=== PATIENT | male | born 1985 | race Caucasian/White ===

== ENCOUNTER 2023-03-25 11:36 | Emergency (ER) | payer OTHER, SELFPAY ==
[2023-03-25] VITALS (13 sets, daily range): BP systolic 132–152; BP diastolic 78–107; PULSE 66–90; RESP 12–24; TEMP 36.8; O2SAT 96–99
--- NOTE | ~2023-03-25 | XR_ITS ---
XR chest 2V DATE: 03/25/2023 12:09 INDICATION: Chest pain and pressure, left side TECHNIQUE: PA and lateral views COMPARISON: None FINDINGS: Normal heart size. No hilar or mediastinal enlargement. No pulmonary infiltrate or consol idation, pulmonary vascular congestion or pleural effusion or pneumothorax. IMPRESSION: No active disease Reviewed, dictated and finalized at location L. IMPRESSION: No active disease
--- NOTE | 2023-03-25 11:38 | ECG_ITS ---
Measurements Intervals [place] Rate: 72 P: 41 HI: 175 QRS: -12 QRSD: 98 T: 4 QT: 361 QTc: 396 Interpretive Statements SINUS RHYTHM BORDERLINE ST-T WAVE ABNORMALITY- INFERIOR LEADS BASELINE ARTIFACT- I, II ,III, AVR, V5-V6 BORDERLINE ECG NO PREVIOUS ECG AVAILABLE FOR COMPARISON Electronically Signed On 03-25-2023 13:38:17 CDT by Rory Lassiter D.O.
[2023-03-25] MEDS: ASPIRIN 81 MG CHEWABLE TABLET 324 MG PO (11:59)
[2023-03-25 12:03] LABS: Basophils Percent Auto 0.4 % (0.2-1.2); Eosinophils Absolute Auto 0.1 K/mm3 (0-0.3); Eosinophils Percent Auto 2.2 % (0-4.4); Hematocrit 44.6 % (42.0-52.0); Hemoglobin 16.1 g/dL (14.0-18.0); Immature Granulocyte Absolute 0.02 K/mm3 (0.00-0.031); Immature Granulocyte Percent A 0.4 % (0-0.5); Lymphocytes Absolute Auto 1.92 K/mm3 (0.9-3.2); Lymphocytes Percent Auto 34.8 % (18.3-44.2); Mean Corpuscular HGB Conc 36.1 g/dl (32-36); Mean Corpuscular Hemoglobin 33.3 pg (26-34); Mean Corpuscular Volume 92.3 fl (80-100); Mean Platelet Volume 9.2 fl (7.4-10.4); Monocytes Absolute Auto 0.2 K/mm3 (0.1-0.6); Monocytes Percent Auto 4.2 % (2.6-8.5); Neutrophils Absolute Auto 3.2 K/mm3 (1.3-6.7); Platelet Count Result 171 k/mm3 (150-375); Red Blood Count 4.83 M/mm3 (4.6-6.20); Red Cell Distribution Width 11.9 % (11.5-14.5); White Blood Count 5.5 K/mm3 (4.5-10.0)
[2023-03-25 12:12] LABS: Alanine Aminotransferase 53 U/L (6-50); Albumin Level 4.9 g/dL (3.5-5.1); Alkaline Phosphatase 71 U/L (38-126); Anion Gap 12 mmol/L (8-16); Aspartate Amino Transferase 35 U/L (17-59); Bilirubin,Total 0.8 mg/dL (0.2-1.3); Blood Urea Nitrogen 17 mg/dL (9-20); Calcium 9.3 mg/dL (8.4-10.2); Carbon Dioxide 24 mmol/L (22-30); Chloride 102 mmol/L (98-107); Estimated CRCL calculation 104 ml/min; Estimated Glomerular Filt Rate > 60; Glucose 123 mg/dL (65-110); Lipase 103 U/L (23-300); Sodium 138 mmol/L (137-145)
[2023-03-25 12:13] LABS: INR 0.9; Prothrombin Time 12.4 Seconds (11.1-14.7)
[2023-03-25 12:24] LABS: Troponin I < 0.012 ng/mL (0.000-0.034)
--- NOTE | 2023-03-25 13:21 | ED.CHESTPAIN ---
HPI - Chest Pain General Chief Complaint: Chest Pain Stated Complaint: Chest discomfort Time Seen by Provider: 03/25/23 12:42 History of Present Illness HPI narrative: Patient is a 37-year-old male with a history of GERD presenting with palpitations. Patient states that approximately 2 days ago he noticed a fluttering in the left side of his chest as he was going to sleep. States that he tried to change his position but the sensation continued. States that he had some left chest discomfort. Denies shortness of breath, lightheadedness, numbness or weakness, back pain. He has had several more episodes of the palpitations with discomfort while at work today so he came in for evaluation. Currently he denies complaints. States that he feels like some of the pain goes into his left shoulder. Denies recent injuries. No fevers or chills, cough, abdominal pain, vomiting, diarrhea, leg swelling Related Data Allergies Allergy/AdvReac Type Severity Reaction Status Date / Time No Known Allergies Allergy Verified 03/25/23 11:52 Review of Systems Review of Systems: All systems reviewed & are unremarkable except as noted in HPI and below Exam Narrative: GENERAL: Well-appearing, well-nourished, and in no acute distress. Pleasant and cooperative HEAD: Normocephalic, atraumatic. EYES: PERRLA and EOMI. ENT: Nares clear, no rhinorrhea or epistaxis. Mucous membranes moist. NECK: Supple. CHEST: Clear to auscultation. No respiratory distress. No chest wall tenderness HEART: Regular rate and rhythm. No murmur heard. Normal peripheral pulses. ABDOMEN: Soft, nontender, nondistended EXTREMITIES: Normal range of motion. No edema. SKIN: Warm, dry, no rash. NEURO: No focal deficits. Alert and oriented x3. PSYCH: Normal mood and affect. Course Vital Signs Vital signs: Vital Signs Temperature 98.2 F 03/25/23 11:41 Pulse Rate 69 03/25/23 11:41 Respiratory Rate 16 03/25/23 11:41 Blood Pressure 152/107 H 03/25/23 11:41 Pulse Oximetry 99 03/25/23 11:41 Oxygen Delivery Room Air 03/25/23 11:41 Temperature 98.2 F 03/25/23 11:41 Pulse Rate 82 03/25/23 15:42 Respiratory Rate 15 03/25/23 15:42 Blood Pressure 137/87 03/25/23 15:42 Pulse Oximetry 98 03/25/23 15:42 Oxygen Delivery Room Air 03/25/23 11:41 MDM - Chest Pain MDM Narrative Medical decision making narrative: Patient is a 37-year-old male presenting with several episodes of palpitations with left-sided chest discomfort. Patient is a bit hypertensive, otherwise vitals are within normal limits. Exam remarkable for the above. EKG per my interpretation shows normal sinus rhythm, left axis deviation, nonspecific T wave flattening, no ST elevations or depressions. Blood work is unremarkable. Troponins are negative x2. Chest x-ray shows no acute abnormalities. On my reevaluation, the patient is resting comfortably. Denies complaints. Discussed the reassuring work-up. Advised that he follow-up closely with his PCP. Appropriate return precautions given. Patient voiced understanding and is agreeable to plan. Discharged in stable condition. Differential Diagnosis Differential diagnosis: Likely pneumothorax, stable angina, atypical chest pain, st elevation myocardial infarction, costochondritis, chest pain and other (GERD, musculoskeletal pain) Medical Records Data Attestation: I reviewed the patient's medical records. Lab Data Attestation: I reviewed the patient's lab results. 03/25/23 11:54 03/25/23 11:54 Labs: Lab Results 03/25/23 03/25/23 Range/Units 11:54 14:24 WBC 5.5 (4.5-10.0) K/mm3 RBC 4.83 (4.6-6.20) M/mm3 Hgb 16.1 (14.0-18.0) g/dL Hct 44.6 (42.0-52.0) % MCV 92.3 (80-100) fl MCH 33.3 (26-34) pg MCHC 36.1 H (32-36) g/dl RDW 11.9 (11.5-14.5) % Plt Count 171 (150-375) k/mm3 MPV 9.2 (7.4-10.4) fl Immature Gran % (Auto) 0.4 (0-0.5) % Neut % (Auto) 58.0
[2023-03-25 14:53] LABS: Troponin I < 0.012 ng/mL (0.000-0.034)
== END 2023-03-25 15:43 | disposition home or self-care (01) ==
PROVIDERS: Emergency Medicine; Emergency Provider Emergency Medicine
DX: R07.89 Other chest pain (principal); K21.9 Gastro-esophageal reflux disease without esophagitis; R94.31 Abnormal electrocardiogram [ECG] [EKG]
CPT/HCPCS: 36415; 71046; 80053; 83690; 84484; 85025; 85610; 85730; 93005; 99284; A9270

== ENCOUNTER 2025-01-03 15:19 | Emergency (ER) | payer OTHER, SELFPAY ==
--- NOTE | ~2025-01-03 | CT_ITS ---
CT abdomen pelvis w con Ordering provider: Olayinka Lock MD History: 39 years Male with . RLQ pain . Comparison: None. Technique: CT abdomen and pelvis with IV and without oral contrast. Automated exposure control and it erative reconstruction technique were employed. The dose-length product was 846.76 mGy-cm. 100 mL Omn ipaque 350 was given IV. Findings: VISUALIZED LOWER CHEST: Normal. UPPER ABDOMINAL ORGANS: Liver: Normal. Gallbladder: Normal. Spleen: Normal. Stomach/duodenum: Normal. Pancreas: Normal. Adrenals: Normal. Kidneys: Normal. PELVIC ORGANS: The bladder is normal. BOWEL AND MESENTERY: Colon: No evidence of diverticulitis. Fecal material is loaded in the colon. Normal appendix. Small Bowel: Normal. No obstruction. Peritoneum/mesentery: No free air or free fluid. No mesenteric lymphadenopathy. RETROPERITONEUM: Normal aorta. No retroperitoneal lymphadenopathy. MUSCULOSKELETAL: Superficial soft tissues: The superficial soft tissues are normal. Bones: Normal spine. IMPRESSION: 1. No evidence of appendicitis, diverticulitis or intestinal obstruction. 2. Constipation. Reviewed, dictated and finalized at location A.
--- OUTSIDE RECORDS SUMMARY | 2025-01-03 15:25 | XMS_ITS | Data Portability ---
Author Organization [place] - [facility] [place], Main Office Address [address] [place] [address] Assessment No assessment recorded. Plan of Treatment Reminders Order Date Submit Date Provider Last Modified By Organization Details Last Modified Time Details Appointments None record ed. Lab None record ed. Referral None record ed. Procedures None record ed. Surgeries None record ed. Imaging None record ed. Medication Orders None record ed. Patient TargetsNo targets recorded. Patient Instructions Encounter Date Encounter Id Patient Instructions Last Modified By Organization Details Last Modified Time 11/18/2022 [id number] he will undergo a ultrasound in April which will be annual and if there has been a significant change open biopsy will be recommended. [email or web address] Not available 11/18/2022 15:45:22 Reason for Referral None Reported. Results Created Date Observation Date Name Description Value Unit Range Abnormal Flag Note LastModifiedBy Organization Detail LastModifiedTime 05/13/20 22 05/08/2022 US, thyro id No observ ation record ed. [id number] Not Available 10/29/2022 01:26:19 07/14/20 23 05/28/2023 US, thyro id No observ ation record ed. [email or web address] Not Available 2022 16:18:57 07/19/20 23 05/28/2023 US, thyro id No observ ation record ed. [email or web address] Not Available 2022 08:16:23 Result Notes None recorded. 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 Procedures Surgical History Date Name Laterality Status Provider Name and Address Organization Details Recorded Time Hernia Repair completed Not Available [facility] 10/29/2022 01:23:35 Hand completed Not Available [facility] 09/2022 01:23:35 Imaging Results Imaging Date Name Status LastModified by Organiz ation Details LastModified Time 05/08/2022 US, thyroid completed [id number] Information not available 10/29/2022 01:26:19 05/28/2023 US, thyroid completed Information n ot available 07/14/2023 16:18:57 05/28/2023 US, thyroid completed Information n ot available 07/20/2023 08:16:23 Procedure Notes None recorded. Medical Equipment None Reported. Allergies No known drug allergies Medications Name Sig Start Date Stop Date Status Note LastModified by Organization Details LastModified Time acetaminoph en 325 mg tablet active Not Available Not Available Not Available omeprazole 40 mg capsule,del ayed release TAKE ONE CAPSULE BY MOUTH ONE TIME DAILY active Not Available Not Available No t Available meloxicam 7.5 mg tablet 11/12 completed Not Available Not Available Not Available clindamycin 1 % topical gel 11/12 completed Not Available Not Available Not Available mupirocin 2 % topical ointment APPLY TO THE AFFECTED AREA(S) TOPICALLY THREE TIMES DAILY 11/12 completed Not Available Not Available Not Available ibuprofen 600 mg tablet active Not Available Not Available Not Available amoxicillin 875 mg-potassiu m clavulanate 125 mg tablet TAKE ONE TABLET BY MOUTH TWICE A DAY FOR 10 DAYS 08/27 completed Not Available Not Available Not Available omeprazole 20 mg tablet,live yed release Take by oral route. 08/27 completed Not Available Not Available Not Available Vitals Date Recorded Body mass index (BMI) Body height Oxygen saturation Oxygen saturation in Arterial blood by Pulse oximetry Heart rate Body temperature Body weight Systolic blood pressure Diastolic blood pressure Provider Name and Address Organization Details Last Updated DateTime 2 34 kg/m2 175.26 cm 98 % 98 % 73 /min 97.2 [degF] 558094. 25 g 120 mm[Hg] 80 mm[Hg] Not Available [facility] 3 01:24:06 Date Recorded Body weight Provider Name an d Address Organization Details Last Updated DateTime 04/27/2022 785375.1 g Not Available [facility] 3 01:24:06 Date Recorded Body height Body mass index (BMI) Body weight Body temperature Provider Name and Address Organization Details Last Updated DateTime 11/18/2022 175.26 cm 33.7 kg/m2 750195.06 g 97.6 [degF] Misty Hastings CMA [place] [facility] [employer] 11/18/2022 15:16:46 Social History Question Answer Notes LastModified by nooked Details LastModified Time Tobacco Smoking Status Never Smoker Not Available [facility] 10/29/2022 01:22:56 What Is Your Level Of Alcohol Consumption? Occasional [id number] Information not available 10/29/2022 What Is Your Level Of Caffeine Consumption? Heavy [id number] Information not available 10/29/2022 What Type Of Diet Are You Following? REGULAR [id number] Information not available 10/29/2022 How Many Days Of Moderate To Strenuous Exercise, Like A Brisk Walk, Did You Do In The Last 7 Days? 5 [id number] Information not available 10/29/2022 On Those Days That You Engage In Moderate To Strenuous Exercise, How Many Minutes, On Average, Do You Exercise? 30 [id number] Information not available 10/29/2022 Do You Use Any Illicit Or Recreational Drugs? No [id number] Information not available 10/29/2022 Do You Have Any Dietary Restrictions? No [id number] Information not available 10/29/2022 Sex: Male Functional Status Question Answer Note LastModified by [employer] Details LastModified Time What is your exercise level? Moderate [id number] Information not available 10/29/2022 Mental Status None recorded. Family History Relationship Description Onset Age of this Age Resolved Age Notes LastModified by Organization Details LastModified Time Maternal Grandfather Family history of malignant neoplasm [id number] Not available 10/29/2022 01:23:37 Maternal Grandmother Family history of malignant neoplasm [id number] Not available 10/29/2022 01:23:37 Paternal Grandfather Family history of malignant neoplasm [id number] Not available 10/29/2022 01:23:37 Paternal Grandmother Family history of malignant neoplasm [id number] Not available 10/29/2022 01:23:37 Father Cerebrovascu lar accident [id number] Not available 10/29/2022 01:23:37 Medical History Condition Response THYROID DISEASE Y GERD/NAUSEA Y HYPOTHYROIDISM Y Past Encounters Encounter ID Performer Location Encounter Start Date Encounter Closed Date Diagnosis/Indication Diagnosis SNOMED-CT Code Diagnosis ICD10 Code Diagnosis Note [id number] [facility] [place] [address] [place] [address] 04/27/2022 00:00:00 04/27/2022 16:11:52 [id number] [facility] [place] [address] [place] [address] 08/27/2022 00:00:00 08/27/2022 16:26:40 [id number] Alex Cheema MD [facility] [place] [address] [place] [address] 11/18/2022 15:09:36 11/18/2022 16:24:51 Thyroid nodule 556818346 E04.1 Health Concerns Section Related Observation LastModified by Organization Detai ls LastModified Time None Recorded Concern Status LastModified by Organization Details LastModified Time None Recorded Advance Directives Directive None Recorded Payers Encounter Date Sequence Insurance Name Policy Number Policy Baxter Covered Member ID Baxter Member ID Guarantor Name 11/18/2022 1 [facility] () Holland Morrow [id number] Holland Morrow Notes Date Note Type Note Provider Name and Address Organization Details Recorded Time 11/18/2022 text/html this patient has a history of thyroid nodules and had a thyroid ultrasound in April of 2022. This demonstrated a 1.49 cm tie rads 4 nodule on the right and a 4 mm tie rads nodule on the left. He did have a previous biopsy which revealed atypia. There is no family history of thyroid cancer be has been exposed to radar. Alex Cheema MD [address] [place] [address], [place] [address], [place], [address], [facility] 11/18/2022 15:45:46
--- OUTSIDE RECORDS SUMMARY | 2025-01-03 15:25 | XMS_ITS | Encounter Summary ---
Author Organization [facility] [place] [address] [place] [address] Care Team Providers Care Fun House Attendant Name Role Phone Unavailable Primary Care Provider Unavailabl e Prior Encounters Date Type Department Care Team Description 09/18/2019 Converted CPS Chart Documents [facility] [address] [place] [address] <No scans attached> 09/18/2019 Converted 13x Documents [facility] [address] [place] [address] <No scans attached> Plan of Treatment Not on file Procedures Procedure Name Priority Date/Time Associated Diagnosis Comments PANORAMIC RADIOGRAPHIC IMAGE Routine 11/07/2020 3:00 AM EST 14 CEMENT CROWN Routine 08/21/2020 3:00 AM EST 14 TREATMENT OF ROOT CANAL OBSTRUCTION; NON-SURGICAL ACCESS Routine 08/14/2020 3:00 AM EST LIMITED ORAL EVALUATION - PROBLEM FOCUSED Routine 08/14/2020 3:00 AM EST 14 ENDODONTIC THERAPY, MOLAR TOOTH (EXCLUDING FINAL HINDU) Routine 08/14/2020 3:00 AM EST 14 PULP VITALITY TESTS Routine 0 3:00 AM EST 14 CORE BUILDUP, INCLUDING ANY PINS WHEN REQUIRED Routine 08/05/2020 3:00 AM EST 14 CEREC CROWN POST Routine 08/05/2020 3 :00 AM EST 14 LIMITED ORAL EVALUATION - PROBLEM FOCUSED Routine 08/02/2020 3:00 AM EST Visit Diagnoses Not on file
--- OUTSIDE RECORDS SUMMARY | 2025-01-03 15:25 | XMS_ITS | Clinical Summary ---
Author Organization [facility] Address [address] [place] [address] Care Team Providers Care Pharmacogeneticist Name Role Phone Amaris [facility] Primary Care Provider Allergies No known active allergies Medications No known medications Social History Tobacco Use Types Packs/Day Years Used Date Smoking Tobacco: Never Assessed Personal Safety Answer Date Recorded Getting School Help Needed Not on file 01/09 Sex and Gender Information Value Date Recorded Sex Assigned at Not on file Legal Sex Male 11:02 AM CDT Gender Identity Not on file Sexual Orientation Not on file Plan of Treatment Health Maintenance Due Date Last Done Comments Depression Screening 1983 Hepatitis C Screening 1985 DTaP/Tdap/Td Vaccine (1 - Tdap) 10/29/1994 Varicella Vaccines (1 of 2 - 13+ 2-dose series) 10/29/1996 Hepatitis B Screening 10/29/2001 Regular Well Visit/Exam 18-64 10/29/2001 Influenza Vaccine (#1) 2024 HPV Vaccines Aged Out No longer eligi ble based on patient's age to complete this topic Pneumococcal vaccine <65 Aged Out No longer eligible based on patient's age to complete this topic Insurance [facility] Care Teams Pharmacogeneticist Relationship Specialty Start Date End Date [facility] [address] [place] [address] PCP - General 01/18/24
--- OUTSIDE RECORDS SUMMARY | 2025-01-03 15:25 | XMS_ITS | Clinical Summary ---
Author Organization [facility] Address [address] [place] [address] Care Team Providers Care Plastic Process Technician Name Role Phone Unavailable Primary Care Provider Unavailabl e Social History Tobacco Use Types Packs/Day Years Used Date Smoking Tobacco: Never Assessed Sex and Gender Information Value Date Recorded Sex Assigned at Not on file Legal Sex Male 9:05 PM PST Gender Identity Not on file Sexual Orientation Not on file Plan of Treatment Not on file
--- OUTSIDE RECORDS SUMMARY | 2025-01-03 15:25 | XMS_ITS | Referral Summary ---
Author Organization [facility] Address [address] [place] [address] Care Team Providers Care Final Assembler Boat Name Role Phone Amaris [facility] Primary Care Provider [phone] Allergies No known active allergies Medications No [...] file Plan of Treatment Not on file Insurance [facility] Care Teams Final Assembler Boat Relationship Specialty Start Date End Date [facility] [address] [place], [place] [address] PCP - General 01/18/24
--- OUTSIDE RECORDS SUMMARY | 2025-01-03 15:25 | XMS_ITS | Clinical Summary ---
Author Organization [facility] Address [address] [place] [address] Care Team Providers Care Credit Adjuster Name Role Phone Non-Staff, Provider Primary Care Provider Latrell owen Allergies No known active allergies Medications methylPREDNISol one, MARISA, (MEDROL DOSEPAK) 4 MG tablet Take 1 tablet (4 mg total) by mouth 2 (two) times daily. Follow package directions 1 each 5 Active methocarbamol (ROBAXIN) 750 MG Tab Take 2 tablets (1,500 mg total) by mouth 3 (three) times daily as needed. 20 tablet Active Encounters Date Type Department Care Team Description 12/25/2024 7:37 AM CDT - 12/25/2024 8:54 AM CDT Emergency [facility] Emergency Room [address] [place] [address] Rebekah Watters MD Back Pain Discharge Disposition: Home or Self Care (Routine Discharge) 12/25/2024 Travel from Last 3 Months Social History Tobacco Use Types Packs/Day Years Used Date Smoking Tobacco: Never Passive Smoke Exposure: Never Smokeless Tobacco: Never Tobacco Cessation:Counseling Given: No Sex and Gender Information Value Date Recorded Sex Assigned at Not on file Legal Sex Male 7:30 AM CDT Gender Identity Not on file Sexual Orientation Not on file Last Filed Vital Signs Vital Sign Reading Time Taken Comments Blood Pressure 156/66 12/25/2024 8:49 AM CDT Pulse 80 12/25/2024 8:49 AM CDT Temperature 37.1 C (98.7 F) 12/25/2024 8:49 AM CDT Respiratory Rate 18 12/25/2024 8:49 AM CDT Oxygen Saturation 97% 12/25/2024 8:49 AM CDT Inhaled Oxygen Concentration - - Weight 102.1 kg (225 lb) 12/25/2024 7:38 AM CDT Height 175.3 cm (5' 9 ) 12/25/2024 7:38 AM CDT Body Mass Index 33.23 12/25/2024 7:38 AM CDT Plan of Treatment Health Maintenance Due Date Last Done Comments Annual Physical 10/29/1986 Hepatitis C 10/29/2001 COVID-19 Vaccine (3 - 2023-2 5 season) 2024 11/15/2020, 10/23/2020 DTaP, Tdap and Td Vaccines ( 2 - Td or Tdap) 12/13/2024 12/13/2014, 07/25/2004 Meningococcal Vaccine Aged Out 06/25/2004 No aristeo sanjiv eligible based on patient's age to complete this topic Hepatitis B Vaccines Completed 08/28/2006, 07/25/2004, 06/25/2004 HPV Vaccines Aged Out No longer eligi ble based on patient's age to complete this topic Meningococcal B Vaccine Aged Out No l onger eligible based on patient's age to complete this topic Pneumococcal Vaccine: Pediatrics (0 to 5 Years) and At-Risk Patients (6 to 49 Years) Aged Out No longer eligible b ased on patient's age to complete this topic RSV Immunizations Under 20 Months Aged Out No longer eligible b ased on patient's age to complete this topic Insurance Care Teams Credit Adjuster Relationship Specialty Start Date End Date Non-Staff, Provider PCP - General UNKNOWN PHYSICIAN SPECIALTY 12/25/24
--- OUTSIDE RECORDS SUMMARY | 2025-01-03 15:25 | XMS_ITS | Continuity of Care Document ---
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 It does not include entries that were removed or entered in error. Problem Status Onset Date Problem Type Date of Resolution Comments Source Low back pain Active 12/26/2024 Diagnosis [facility] Anxiety Active 12/19/2024 Diagnosis [facility] Low back pain, unspecified Active Condition DoD Nontoxic goiter, unspecified Active Condition DoD Abnormal hepatic function Active Condition 0421C[facility] [place] Anxiety Active Condition [facility] Degenerative disc disease Active Condition 0421C[facility] [place] Epididymal cyst Active Condition 0421C- [facility] [place] Essential hypertension Active Condition 6130C-[facility] GERD - Gastro-esophageal reflux disease Active Condition 0421C[facility] [place] Hydrocele of testis Active Condition 0421C[facility] [place] Joint pain Active Condition 00[facility] Low back pain Active Condition 0421C[facility] [place] Multiple thyroid nodules Active Condition 00[facility] Pain of bilateral knee joints Active Condition 0055C[facility] Thyroid nodule Active Condition 0421C-[facility] [place] Medications Combined list of outpatient medications from Department of Defense and Veterans Affairs facilities.Medications provided include 1) outpatient medications from the last 15 months, and 2) patient-reported medications. Medication Details Route Status Patient Instructions Prescription Expires Prescription Number Last Dispense Date Ordering Provider Order Date Order Qty Source CELECOXIB (U/D) 200 MG ORAL CAP Take with plenty of water.Ta ke with food/mil k.Obtain advice for OTCs.Do not take if . 10/05/2024 [id number] [address] [place] [address] Chang [facility] ([facility] Omeprazole (Prilosec Eq.) Capsule Conventiona l 40 mg Oral Take or use exactly as directed .Obtain advice for OTCs.Subha carey whole. 10/07/2024 [id number] [address] [place] [address] Chang [facility] ([facility] VOQUEZNA (vonoprazan fumarate), 10 MG, TABLET, ORAL, PHATHOM PHARMAC, 30 ea. BOTTLE Cancele d [id number] : 2023 0 Pharmac y Data Transac tion Service Facilit y VOQUEZNA (vonoprazan fumarate), 20 MG, TABLET, ORAL, PHATHOM PHARMAC, 30 ea. BOTTLE Cancele d [id number] : 2023 0 Pharmac y Data Transac tion Service Facilit y VOQUEZNA (vonoprazan fumarate), 20 MG, TABLET, ORAL, PHATHOM PHARMAC, 30 ea. BOTTLE Active [id number] 2023 60 Pharmac y Data Transac tion Service Facilit y Allergies, Adverse Reactions, Alerts Combined list of allergies from Department of Defense and Veterans Affairs facilities. It does not include entries that were removed or entered in error. Substance Category Reaction Severity Reaction type Status Date Reported Comments Source No Known Allergies Drug allergy (disorder) active 10/10/2023 DoD Immunizations Combined list of available immunizations from the Department of Defense and Veterans Affairs facilities. Immunization Series Date Given Administered By Site Reaction Lot Number CVX Code Drug Dry Boss Status Comments Source Influenza, injectable, quadrivalent, preservative free 0 2020 [id number] [employer] (SKB) complet ed Influenza , injectabl e, quadrival ent, preservat dax free DoD COVID Vaccine Pfizer 2020 [id number] PFIZER complet ed COVID Vaccine Pfizer 11/15/20 Given Ambulat ory Pharmac y SARS-COV-2 (COVID-19) vaccine, mRNA, spike protein, LNP, preservative free, 30 mcg/0.3mL dose 2 2020 [id number] 208 Na[employer] Inc (PFR) complet ed SARS-COV- 2 (COVID-19 ) vaccine, mRNA, spike protein, LNP, preservat dax free, 30 mcg/0.3mL dose DoD COVID Vaccine Pfizer 2020 [id number] PFIZER complet ed COVID Vaccine Pfizer 10/23/20 Given Ambulat ory Pharmac y SARS-COV-2 (COVID-19) vaccine, mRNA, spike protein, LNP, preservative free, 30 mcg/0.3mL dose 1 2020 [id number] Pfizer, Inc (PFR) complet ed SARS-COV- 2 (COVID-19 ) vaccine, mRNA, spike protein, LNP, preservat dax free, 30 mcg/0.3mL dose DoD influenza, injectable, quadrivalent- pf 2019 [id number] 150 Seqirus complet ed influenza , injectabl e, quadrival ent-pf 05/15/20 Given Ambulat ory Pharmac y Influenza, injectable, quadrivalent, preservative free 0 2019 [id number] 150 Seqirus (SEQ) complet ed Influenza , injectabl e, quadrival ent, preservat dax free DoD influenza, injectable, quadrivalent- pf 2018 [id number] 150 [employer] complet ed influenza , injectabl e, quadrival ent-pf 06/19/19 Given Ambulat ory Pharmac y Influenza, injectable, quadrivalent, preservative free 0 2018 [id number] 517 150 Se[employer] (SEQ) complet ed Influenza , injectabl e, quadrival ent, preservat dax free DoD measles/mumps /rubella virus vaccine 2018 [id number] Merck & Company Inc complet ed measles/m umps/rube lla virus vaccine 01/24/19 Given Ambulat ory Pharmac y measles, mumps and rubella virus vaccine 2 2018 [id number] 03 Merck (MSD) complet ed measles, mumps and rubella virus vaccine DoD influenza, injectable, quadrivalent- pf 2017 [id number] 150 Seqirus complet ed influenza , injectabl e, quadrival ent-pf 06/20/18 Given Ambulat ory Pharmac y Influenza, injectable, quadrivalent, preservative free 0 2017 [id number] 150 Se[employer]irus (SEQ) comple t ed Influenza , injectabl e, quadrival ent, preservat dax free DoD influenza, injectable, quadrivalent- pf 2016 [id number] 150 GlaxoSmithKli ne complet ed influenza , injectabl e, quadrival ent-pf 05/27/17 Given Ambulat ory Pharmac y Influenza, injectable, quadrivalent, preservative free 0 2016 [id number] 150 [facility] (SKB) complet ed Influenza , injectabl e, quadrival ent, preservat dax free DoD influenza, injectable, quadrivalent- pf 2015 [id number] 150 GlaxoSmithKli ne complet ed influenza , injectabl e, quadrival ent-pf 06/11/16 Given Ambulat ory Pharmac y Influenza, injectable, quadrivalent, preservative free 0 2015 [id number] 150 [facility] (SKB) complet ed Influenza , injectabl e, quadrival ent, preservat dax free DoD influenza, seasonal, injectable-pf 2014 [id number] 140 Unknown complet ed influenza , seasonal, injectabl e-pf 07/03/15 Given Ambulat ory Pharmac y Influenza, seasonal, injectable, preservative free 0 2014 UNK 140 Unknown (UNK) comple t ed Influenza , seasonal, injectabl e, preservat dax free DoD influenza, live, intranasal, quadrivalent 12 2014 149 () complet ed influenza , live, intranasa l, quadrival ent DoD tetanus, diphtheria, acellular pertu is 2014 [id number] 115 GlaxoSmithKli ne complet ed tetanus, diphtheri a, acellular pertussis 12/13/14 Given Ambulat ory Pharmac y tetanus toxoid, reduced diphtheria toxoid, and acellular pertu is vaccine, adsorbed 1 2014 [id number] 115 [facility] (SKB) complet ed tetanus toxoid, reduced diphtheri a toxoid, and acellular pertussis vaccine, adsorbed DoD influenza, live, intranasal, quadrivalent 0 2013 [id number] 149 [employer] (MED) complet ed influenza , live, intranasa l, quadrival ent DoD influenza, live, intranasal,qu adrivalent 2012 [id number] 149 [employer] comple t ed influenza , live, intranasa l,quadriv alent 04/24/13 Given Ambulat ory Pharmac y influenza, live, intranasal, quadrivalent 0 2012 [id number] 149 [employer] (MED) complet ed influenza , live, intranasa l, quadrival ent DoD influenza virus vaccine, live 2011 [id number] 111 [facility] t ed influenza virus vaccine, live 04/20/12 Given Ambulat ory Pharmac y influenza virus vaccine, live, attenuated, for intranasal use 0 2011 [id number] 111 [employer] (MED) complet ed influenza virus vaccine, live, attenuate d, for intranasa l use DoD influenza virus vaccine, live 2010 UNK 111 [facility] t ed influenza virus vaccine, live 04/14/11 Given Ambulat ory Pharmac y influenza virus vaccine, live, attenuated, for intranasal use 0 2010 UNK [facility] ed influenza virus vaccine, live, attenuate d, for intranasa l use DoD influenza virus vaccine, live 2009 UNK 111 complet ed influenza virus vaccine, live 06/05/10 Given Ambulat ory Pharmac y influenza virus vaccine, live, attenuated, for intranasal use 0 2009 UNK 111 (TRN) complet ed influenza virus vaccine, live, attenuate d, for intranasa l use DoD Novel influenza-H1N 1-09, injectable 2008 [id number] 1 127 complet ed Novel influenza -E1S2-29, injectabl e 08/02/09 Given Ambulat ory Pharmac y Novel influenza-H1N 1-09, injectable 1 2008 [id number] 1 127 (AG) complet ed Novel influenza -P3M9-12, injectabl e DoD influenza virus vaccine, live 2008 UNK 111 Unknown complet ed influenza virus vaccine, live 05/31/09 Given Ambulat ory Pharmac y influenza virus vaccine, live, attenuated, for intranasal use 0 2008 UNK 111 Unknown (UNK) comple t ed influenza virus vaccine, live, attenuate d, for intranasa l use DoD influenza virus vaccine, live 2007 [id number] 111 [facility] t ed influenza virus vaccine, live 05/31/08 Given Ambulat ory Pharmac y influenza virus vaccine, live, attenuated, for intranasal use 0 2007 [id number] 111 [employer] (MED) complet ed influenza virus vaccine, live, attenuate d, for intranasa l use DoD influenza virus vaccine, live 2006 [id number] 111 [employer] comple t ed influenza virus vaccine, live 06/14/07 Given Ambulat ory Pharmac y influenza virus vaccine, live, attenuated, for intranasal use 0 2006 [id number] 111 [employer] (MED) complet ed influenza virus vaccine, live, attenuate d, for intranasa l use DoD hepatitis A-hepatitis B vaccine 2005 [id number] 104 complet ed hepatitis A-hepatit is B vaccine 08/28/06 Given Ambulat ory Pharmac y hepatitis A and hepatitis B vaccine 3 2005 [id number] 104 ([facility]) complet ed hepatitis A and hepatitis B vaccine DoD influenza virus vaccine, whole virus 2005 [id number] 16 sanofi pasteur complet ed influenza virus vaccine, whole virus 07/08/06 Given Ambulat ory Pharmac y influenza virus vaccine, whole virus 0 2005 [id number] 16 Sanofi Pasteur ([facility]) complet ed influenza virus vaccine, whole virus DoD influenza virus vaccine, whole virus 2004 [id number] 16 sanofi pasteur complet ed influenza virus vaccine, whole virus 07/08/05 Given Ambulat ory Pharmac y influenza virus vaccine, whole virus 0 2004 [id number] 16 Sanofi Pasteur ([facility]) complet ed influenza virus vaccine, whole virus DoD yellow fever vaccine 2003 [id number] 37 sanofi pasteur complet ed yellow fever vaccine 07/25/04 Given Ambulat ory Pharmac y measles/mumps /rubella virus vaccine 2003 [id number] 03 Merck & Company Inc complet ed measles/m umps/rube lla virus vaccine 07/25/04 Given Ambulat ory Pharmac y hepatitis A-hepatitis B vaccine 2003 [id number] 104 complet ed hepatitis A-hepatit is B vaccine 07/25/04 Given Ambulat ory Pharmac y influenza virus vaccine, whole virus 2003 [id number] 16 sanofi pasteur complet ed influenza virus vaccine, whole virus 07/25/04 Given Ambulat ory Pharmac y influenza virus vaccine, whole virus 2003 [id number] 16 sanofi pasteur complet ed influenza virus vaccine, whole virus 07/25/04 Given Ambulat ory Pharmac y vaccinia (smallpox) vaccine 2003 [id number] [employer] [facility] complet ed vaccinia (smallpox ) vaccine 07/25/04 Given Ambulat ory Pharmac y tetanus-dipht h toxoids (Td) adult/adol 2003 [id number] 09 sanofi pasteur complet ed tetanus-d iphth toxoids (Td) adult/ado l 07/25/04 Given Ambulat ory Pharmac y measles, mumps and rubella virus vaccine 1 2003 [id number] 03 Merck (MSD) complet ed measles, mumps and rubella virus vaccine DoD tetanus and diphtheria toxoids, adsorbed, preservative free, for adult use (2 Lf of tetanus toxoid and 2 Lf of diphtheria toxoid) 1 2003 [id number] 09 Sanofi Pasteur ([facility]) complet ed tetanus and diphtheri a toxoids, adsorbed, preservat dax free, for adult use (2 Lf of tetanus toxoid and 2 Lf of diphtheri a toxoid) DoD influenza virus vaccine, whole virus 0 2003 [id number] 16 Sanofi Pasteur ([facility]) complet ed influenza virus vaccine, whole virus DoD yellow fever vaccine 1 2003 [id number] 37 Sanofi Pasteur ([facility]) complet ed yellow fever vaccine DoD vaccinia (smallpox) vaccine 1 2003 [id number] 75 VtshurthiNoah ([facility]) complet ed vaccinia (smallpox ) vaccine DoD hepatitis A and hepatitis B vaccine 2 2003 [id number] ([facility]) complet ed hepatitis A and hepatitis B vaccine DoD poliovirus vaccine, inactivated 2003 [id number] 10 sanofi pasteur complet ed polioviru s vaccine, inactivat ed 06/25/04 Given Ambulat ory Pharmac y hepatitis A-hepatitis B vaccine 2003 [id number] 104 complet ed hepatitis A-hepatit is B vaccine 06/25/04 Given Ambulat ory Pharmac y meningococcal polysaccharid e (MPSV4) 2003 [id number] 32 sanofi pasteur complet ed meningoco ccal polysacch aride (MPSV4) 06/25/04 Given Ambulat ory Pharmac y poliovirus vaccine, inactivated 2003 [id number] 10 sanofi pasteur complet ed polioviru s vaccine, inactivat ed 06/25/04 Given Ambulat ory Pharmac y poliovirus vaccine, inactivated 1 2003 [id number] 10 Sanofi Pasteur ([facility]) complet ed polioviru s vaccine, inactivat ed DoD meningococcal polysaccharid e vaccine (MPSV4) 1 2003 [id number] 32 Sanofi Pasteur ([facility]) complet ed meningoco ccal polysacch aride vaccine (MPSV4) DoD hepatitis A and hepatitis B vaccine 1 2003 [id number] 104 ([facility]K) complet ed hepatitis A and hepatitis B vaccine DoD Results Combined list of recent chemistry, hematology and other laboratory results from Department of Defense and Veterans Affairs, ranging from 15 months to all on record, depending upon the facility. Order Name Results Value Reference Range Date Interpretation Specimen Comments Source Chemistry Hemoglobin A1c 4.4 % 4.0 - 5.6 12/16 N Interpretiv e Data: Normal: 4.0 - 5.6% Increased Risk: 5.7 - 6.4% Diabetic Range: 6.5% For patients without diabetes, the normal range for the hemoglobin A1c test is between 4% and 5.6%. Hemoglobin A1c levels between 5.7% and 6.4% indicate increased risk of diabetes, and levels of 6.5% or higher indicate diabetes. Because studies have repeatedly shown that out-of-cont rol diabetes results in complicatio ns from the disease, the goal for people with diabetes is a hemoglobin A1c less than 7%. The higher the hemoglobin A1c, the higher the risks of developing complicatio ns related to diabetes. If confirmatio n is needed, consider recalling the patient and ordering Hemoglobin Electrophor esis. [facility]55A[facility] Chemistry eAvg Glucose 80 mg/dL 12/16 [facility] Chol/HDL 5 mg/dL 12/16 [facility] Chemistry LDL/HDL 3 12/16 [facility] Chemistry LDL 94 mg/dL 100 - 130 12/16 L Interpretiv e Data: AGES 0-19: Desirable: < 110 mg/dL Borderline High: 110-129 mg/dL High: >/= 130 mg/dL ADULTS: Desirable: <100 mg/dL Near/above optimal: 100-130 mg/dL Borderline High: 131-159 mg/dL High: 160-189 mg/dL Very High: 190 mg/dL [address] [place] [address] Chang Chemistry Triglycerid es 226 mg/dL 7 - 149 12/16 H Interpretiv e Data: AGES 0-9: Desirable: < 75 mg/dL Borderline High: 75-99 mg/dL High: >/= 100 mg/dL AGES 10-19: Desirable: < 90 mg/dL Borderline High: 90-129 mg/dL High: >/= 130 mg/dL ADULTS: Desirable: < 150 mg/dL Borderline High: 150-199 mg/dL High: >/= 240 mg/dL Very High: >/= 500 mg/dL [address] [place] [address] Chang Chemistry HDL Cholesterol 36 mg/dL 40 - 59 12/16 L Interpretiv e Data: HDL (HIGH DENSITY LIPOPROTEIN ): ADULTS: Low: < 40 mg/dL High: >/= 60 mg/dL AGES 0 -19: Low: < 40 mg/dL Borderline Low: 40 - 45 mg/dL Acceptable: > 45 mg/dL [address] [place] [address] Chemistry Cholesterol Total 180 mg/dL 12/16 N Interpretiv e Data: According to the [place] [employer] : AGES 0-19: Desirable: < 170 mg/dL Borderline High: 170-199 mg/dL High Blood Cholesterol : >/= 200 mg/dL ADULTS: Desirable < 200 mg/dL Borderline High: 200-239 mg/dL High Blood Cholesterol : >/= 240 mg/dL [address] [place] [address] Chang Chemistry TSH 1.390 mIU/L 0.270 - 4.200 12/16 N Interpretiv e Data: Recommend: TPO/Thyrope roxidase Antibody when TSH result is > 4.2 uIU/mL 5600A-U [facility] Infectiou s Disease HIV-1/O/2 Non-Reac tive 13 (12/17/23 9:46 AM) 12/16 N Interpretiv e Data: INTERPRETAT ION: This method is a screening procedure for the detection of HIV p24 Antigen and Antibodies to HIV-1, including Group O, and/or HIV-2. NON-REACTIV E: HIV-1 antigen and HIV-1 / HIV-2 antibodies were not detected. No laboratory evidence of HIV infection. A negative test result does not exclude the possibility of exposure to or infection with HIV. HIV antibodies and/or p24 antigen may be undetectabl e in some stages of the infection and in some clinical conditions. If acute HIV infection is suspected, consider submitting another specimen to a reference laboratory for HIV-1 RNA. SCREEN REACTIVE - CONFIRMATIO N TO FOLLOW: Possible presence of HIV-1antibo dies, HIV-2 antibodies and/or HIV-1 p24 antigen. Specimen will reflex to the confirmatio n testing that fulfills the Center for Disease Control and Prevention' s HIV diagnostic algorithm. Refer to [facility] Lab Guide for additional information : [email or web address] x Testing performed by [employer]. 5600A-U [facility] Chemistry AGAP 9.00 0.00 - 15.00 12/16 N 0055A-3 [facility] Chemistry Creatinine Level 0.90 mg/dL 0.72 - 1.25 12/16 N 0055A-[address] [place] [address]- Chang Chemistry Glucose Lvl 93 mg/dL 74 - 99 12/16 N 0055A-[address] [place] [address]- Chang Chemistry Potassium Lvl 4.5 mmol/L 3.5 - 5.1 12/16 N 0055A-[address] [place] [address] Chemistry Sodium 141 mmol/L 136 - 145 12/16 N 0055A-[address] [place] [address]- Chang Chemistry Chloride 109 mmol/L 98 - 107 12/16 H 0055A-3 [facility]- [facility] Chemistry BUN 13 mg/dL 8 - 26 12/16 N 0055A-[address] [place] [address]- Chang Chemistry BUN/Creat Ratio 14 mg/dL 12 - 20 12/16 N 0055A-[address] [place] [address]- Chang Chemistry Calcium 9.5 mg/dL 8.4 - 10.2 12/16 N 0055A-[address] [place] [address]- Chang Chemistry CO2 23 mmol/L 22 - 29 12/16 N 0055A-[address] [place] [address] Chemistry Ur Microalbumi n 8 mg/L 12/16 N Interpretiv e Data: To minimize intra-indiv idual variation, analysis of three random urine samples collected over the course of a week has also been recommended . 0055A-[address] [place] [address]- Chang Hematolog y Hematocrit 44 % 40 - 49 12/16 N 0055A-[address] [place] [address]- [facility] Hematolog y Hemoglobin 16.4 g/dL 13.0 - 16.3 12/16 H 0055A-[address] [place] [address]- Chang Hematolog y MCH 34 pg 28 - 33 12/16 H 0055A-3 [facility] Hematolog y MCHC 37.4 g/dL 33.0 - 36.5 12/16 H 0055A-[address] [place] [address]- Chang Hematolog y MCV 90 fL 80 - 97 12/16 N 0055A-[address] [place] [address]- Chang Hematolog y Platelets 170.0 x10^3/mc L 150.0 - 450.0103 12/16 N 0055A-[address] [place] [address] Chang Hematolog y MPV 9.4 fL 7.4 - 10.4 12/16 N 0055A-3 [facility] Hematolog y RDW 12.0 % 11.0 - 14.9 12/16 N 0055A-[address] [place] [address] Chang Hematolog y RBC 4.9 x10^6/mc L 4.0 - 5.6106 12/16 N 0055A-[address] [place] [address] Chang Hematolog y WBC 4.8 x10^3/mc L 4.0 - 11.0103 12/16 N 0055A-[address] [place] [address] Chemistry eGFR CKD EPI 111 mL/min/1 .73_m2 12/16 Interpretiv e Data: Estimated Glomerular Filtration Rate (eGFR) calculated using the 2020 Chronic Kidney Disease-Epi demiology (CKD-EPI) Collaborati on creatinine equation; units of measure are mL/min/1.73 m2. Results are only valid for adults (>=18 years) whose serum creatinine is in steady state. eGFR calculation s are not valid for patients with acute kidney injury and for patients on dialysis. Creatinine- based estimates of kidney function may also be inaccurate in patients with reduced creatinine generation due to decreased muscle mass (e.g., malnutritio n, severe hypoalbumin emia, sarcopenia, chronic neuromuscul ar disease, amputations , severe heart failure or liver disease) and in patients with increased creatinine generation due to increased muscle mass (e.g., muscle builders, anabolic steroids) or increased dietary intake. CKD is diagnosed based on abnormaliti es of kidney structure or function, present for >3 months, with implication s for health and disease. CKD is classified and staged based on cause, eGFR and albuminuria (quantified as urine albumin to creatinine ratio). An eGFR >60 mL/min/1.73 m2 in the absence of increased urine albumin excretion or structural abnormaliti es does not CKD. eGFR provides only an estimate of measured GFR within +/- 30% for most patients. As mentioned, nutritional status and muscle mass, among many factors, may lead to inaccuracy in the estimate. Consider ordering the creatinine- cystatin C panel if better accuracy is needed for clinical decision-heidi gonzales. eGFR (mL/min/1.7 3 m2) CKD stage Interpretat ion Normal 60-89 Mild decrease 45-59 Mild to moderate decrease 30-44 Moderate to severe decrease 15-29 Severe decrease <15 Kidney failure 0055A-3 [facility] Hematolog y Baso Absolute 0.0 x10^3/mc L 0.0 - 0.1103 12/16 N 0055A-3 [facility] Lymph Absolute 1.8 x10^3/mc L 1.2 - 4.0103 12/16 N 0055A-[address] [place], [place] [address]osin[facility] % Auto 3 % 0 - 5 12/16 N 0055A-[address] [place] [address] Hematolog y Lymphocyte % Auto 38.1 % 20.0 - 40.0 12/16 N 0055A-3 [facility] Hematolog y Basophil % Auto 0.4 % 0.0 - 2.5 12/16 N 0055A-3 [facility] Eos Absolute 0.1 x10^3/mc L 0.0 - 0.7103 12/16 N 0055A-3 [facility] Neutrophil % Auto 52.5 % 46.0 - 77.0 12/16 N 0055A-[address] [place] [address] Hematolog y Monocyte % Auto 6 % 1 - 12 12/16 N 0055A-[address] [place] [address] Hematolog y Neutro Absolute 2.5 x10^3/mc L 2.0 - 7.0103 12/16 N 0055A-[address] [place] [address] Hematolog y Mayes Absolute 0.3 x10^3/mc L 0.2 - 0.8103 12/16 N 0055A-[address] [place] [address] Molecular Infectiou s Disease Bordetella pertussis Not Detected (11/16/23 8:26 AM) 11/15 N - [address] [place] [address] Molecular Infectiou s Disease Bordetella parapertuss is Not Detected (11/16/23 8:26 AM) 11/15 N 5A- [address] [place] [address] Molecular Infectiou s Disease SARS-CoV-2 PCR Not Detected 15 (11/16/23 8:26 AM) 11/15 N Interpretiv e Data: The [employer] COVID-19 Test contains three different assays (SARS-CoV-2 a, SARS-CoV-2d , SARS-CoV-2e ) for the detection of SARS-CoV-2. The [employer] interprets each of these assays independent ly and the results are combined as a final test result for the virus. SARS-CoV-2- Detected If two or more assays are 'Detected' the result on the test report will be 'Detected'. SARS-CoV-2- Not Detected-al l assays are 'Not Detected', the result on the test report will be 'Not Detected' SARS-CoV-2 Equivocal- Only one of three assays was D etected for the virus. The combination of D etected and N ot Detected assay results were inconclusiv e 63 [place] [address] Molecular Infectiou s Disease Reason for Test? Diagnosi s (11/16/23 8:26 AM) 11/15 N 5A-[address] [place] [address] Molecular Infectiou s Disease Adenovirus Not Detected (11/16/23 8:26 AM) 11/15 N 0055A-[address] [place] [address]- [facility] Molecular Infectiou s Disease Chlamydia pneumoniae Not Detected (11/16/23 8:26 AM) 11/15 N 0055A-[address] [place] [address] Molecular Infectiou s Disease Coronavirus 229E Not Detected (11/16/23 8:26 AM) 11/15 N 0055A-[address] [place] [address] Molecular Infectiou s Disease Coronavirus HKU1 Not Detected (11/16/23 8:26 AM) 11/15 N 0055A-[address] [place] [address] Molecular Infectiou s Disease Coronavirus NL63 Not Detected (11/16/23 8:26 AM) 11/15 N 0055A-[address] [place] [address] Molecular Infectiou s Disease Coronavirus OC43 Not Detected (11/16/23 8:26 AM) 11/15 N 0055A-[address] [place] [address] Molecular Infectiou s Disease Human Metapneumov irus Detected *ABN* (11/16/23 8:26 AM) 11/15 A 0055A-[address] [place] [address] Molecular Infectiou s Disease Influenza A Not Detected (11/16/23 8:26 AM) 11/15 N 0055A-3 [facility] Molecular Infectiou s Disease Influenza B Not Detected (11/16/23 8:26 AM) 11/15 N 0055A-[address] [place] [address] Molecular Infectiou s Disease Mycoplasma pneumoniae Not Detected (11/16/23 8:26 AM) 11/15 N 0055A-[address] [place] [address]- [facility] Molecular Infectiou s Disease Parainfluen za 1 Not Detected (11/16/23 8:26 AM) 11/15 N 0055A-3 [facility] Molecular Infectiou s Disease Parainfluen za 2 Not Detected (11/16/23 8:26 AM) 11/15 N 0055A-[address] [place] [address]- [facility] Molecular Infectiou s Disease Parainfluen za 3 Not Detected (11/16/23 8:26 AM) 11/15 N 0055A-3 [facility] Molecular Infectiou s Disease Parainfluen za 4 Not Detected (11/16/23 8:26 AM) 11/15 N 0055A-[address] [place] [address] Molecular Infectiou s Disease Respiratory Syncytial Virus Not Detected (11/16/23 8:26 AM) 11/15 N 5A-[address] [place] [address] Molecular Infectiou s Disease Human Rhinovirus/ Enterovirus Not Detected (11/16/23 8:26 AM) 11/15 N 0055A-[address] [place] [address] Hematolog y ESR Auto Plus 6 mm/h 0 - 15 07/16 N Interpretiv e Data: The clinical significanc e of an ESR result obtained from an abnormal sample, including but not limited to icteric, lipemic, cold agglutinins , anemic conditions, low hemoglobin concentrati ons, hemolysis, or any pathologica l condition that interferes or prevents a clear red cell to plasma interface is subject to a high degree of variability . 5A-[address] [place] [address] Chemistry CRP 0.05 mg/dL 0.02 - 0.50 07/16 N 5A-[address] [place] [address] Immunolog y/Serolog y RF Qnt <13 IU/mL 07/16 N Result Comment: Below detectable range of analyzer. 5A-[address] [place] [address] Chemistry Glucose Serum LC 88 mg/dL 11/12 0421A-U [facility] [place] Sodium LC 139 mmol/L 11/12 0421[facility] BUN/Creatin ine Ratio LC 14 11/12 0421A-[facility] [place] eGFR.LC 111 mL/min/1 .73_m2 11/12 0421A-U [facility] Chemistry Creatinine Serum LC 0.91 mg/dL 11/12 0421A-[facility] [place] BUN LC 13 mg/dL 11/12 0421[facility] Albumin Serum.LC 5.4 g/dL 11/12 H 0421A-U [facility] Protein, Total, Serum.LC 7.6 g/dL 11/12 0421A-U [facility] Calcium Total.LC 9.8 mg/dL 11/12 0421A-U [facility] [place] Chemistry Carbon Dioxide Total LC 21 mmol/L 11/12 0421A-U [facility] [place] Chemistry Chloride LC 101 mmol/L 11/12 0421A-U [facility] [place] Chemistry Potassium LC 4.2 mmol/L 11/12 0421A-U [facility] [place] Chemistry AST (SGOT) 22 [iU]/L 11/12 0421A-U [facility] [place] Chemistry Alk Phos Isoenzyme.L C 89 [iU]/L 11/12 0421A-U [facility] [place] Chemistry Bilirubin Total LC 0.5 mg/dL 11/12 0421A-U [facility] [place] Chemistry A/G Ratio LC 2.5 11/12 H 0421A-U [facility] [place] Chemistry Globulin Total LC 2.2 g/dL 11/12 0421A-U [facility] [place] Chemistry ALT (SGPT) 32 [iU]/L 11/12 Result Comment: Performed At: [address] [facility] [address] [id number] Priscilla Jha MD Ph:[phone] 0421A-U [facility] [place] Hematolog y WBC.LC 5.8 10^3/uL 11/12 0421A-U [facility] [place] Hematolog y Hematocrit. LC 46.7 % 11/12 0421A-U [facility] [place] Hematolog y Hemoglobin. LC 16.7 g/dL 11/12 0421A-U [facility] [place] Hematolog y RBC Count.LC 4.96 10^6/uL 11/12 0421A-U [facility] [place] Hematolog y Platelets.L C 206 10^3/uL 11/12 0421A-U [facility] [place] Hematolog y RDW.LC 13.0 % 11/12 0421A-U [facility] [place] Hematolog y MCHC.LC 35.8 g/dL 11/12 H 0421A-U [facility] [place] Hematolog y MCH.LC 33.7 pg 11/12 H 0421A-U [facility] [place] Hematolog y MCV.LC 94 fL 11/12 0421A-U [facility] [place] Hematolog y Neutrophils (Abs).LC 3.5 10^3/uL 11/12 0421A-U [facility] [place] Hematolog y Basos.LC 0 % 11/12 0421A-U [facility] [place] Hematolog y Eos.LC 2 % 11/12 0421A-U [facility] [place] Hematolog y Monocytes.L C 6 % 11/12 0421A-U [facility] [place] Hematolog y Lymphs.LC 32 % 11/12 0421A-U [facility] [place] Hematolog y Neutrophils .LC 60 % 11/12 0421A-U [facility] [place] Hematolog y Immature Granulocyte s.LC 0 % 11/12 0421A-U [facility] [place] Hematolog y Basos (Abs).LC 0.0 10^3/uL 11/12 0421A-U [facility] [place] Hematolog y Eos (Abs).LC 0.1 10^3/uL 11/12 0421A-U [facility] [place] Hematolog y Monocytes (Abs).LC 0.3 10^3/uL 11/12 0421A-U [facility] [place] Hematolog y Lymphs (Abs).LC 1.9 10^3/uL 11/12 0421A-U [facility] [place] Hematolog y Immature Grans (Abs).LC 0.0 10^3/uL 11/12 Result Comment: Performed At: 01 [facility] [id number] [place], [place] [id number] Priscilla Jha MD Ph:[phone] 0421A-U [facility] [place] Infectiou s Disease Source of Test.LC Phys Exam (11/12/21 2:03 PM) 11/12 N 0421A-U [facility] [place] Infectiou s Disease HIV-1/2 AG/AB 4G CDD LC NEGATIVE 11/12 Result Comment: Performed At: 1 [facility] [address] [facility] [address] [place] [address] MAREK RODRIGUEZ PHD Ph:[phone] 0421A-U [facility] Vital Signs Combined list of inpatient and outpatient Vital Signs from Department of Defense and Veterans Affairs, ranging from 12 months to all on record, depending upon the facility. Vital Sign Value Date Comments Source Temperature Oral 38.5 Georgina 11/16/2023 12:57:00 [facility] Respiratory Rate 16 br/min 11/16/2023 12:57:00 [facility] Peripheral Pulse Rate 82 bpm 11/16/2023 12:57:00 [facility] Blood Pressure Manual Automatic 09/14/2024 20:14:00 [facility] BP Site Right arm 09/14/2024 20:14:00 0055C [facility] Temperature Oral 36.6 Georgina 09/14/2024 20:14:00 [facility] Systolic Blood Pressure 144 mm[Hg] 09/14/2024 20:14:00 [facility] Diastolic Blood Pressure 76 mm[Hg] 09/14/2024 20:14:00 [facility] Respiratory Rate 16 br/min 09/14/2024 20:14:00 [facility] Peripheral Pulse Rate 86 bpm 09/14/2024 20:14:00 [facility] Mean Arterial Pressure, Calc 99 mm[Hg] 09/14/2024 20:14:00 [facility] BP Site Left arm 10/06/2023 19:32:00 0055C [facility] Systolic Blood Pressure 137 mm[Hg] 12/26/2024 12:50:00 [facility] Diastolic Blood Pressure 87 mm[Hg] 12/26/2024 12:50:00 [facility] Temperature Oral 36.8 Georgina 12/26/2024 12:50:00 [facility] Peripheral Pulse Rate 88 bpm 12/26/2024 12:50:00 [facility] Mean Arterial Pressure, Calc 104 mm[Hg] 12/26/2024 12:50:00 [facility] Respiratory Rate 16 br/min 12/26/2024 12:50:00 [facility] BP Site Left arm 12/26/2024 12:50:00 0055C [facility] Blood Pressure Manual Automatic 12/26/2024 12:50:00 [facility] Peripheral Pulse Rate 70 bpm 12/17/2023 12:53:00 [facility] Respiratory Rate 16 br/min 12/17/2023 12:53:00 [facility] BP Site Left arm 12/17/2023 12:53:00 0055C [facility] Systolic Blood Pressure 138 mm[Hg] 12/17/2023 12:53:00 [facility] Diastolic Blood Pressure 89 mm[Hg] 12/17/2023 12:53:00 [facility] Temperature Oral 36.6 Georgina 12/17/2023 12:53:00 [facility] Mean Arterial Pressure, Calc 105 mm[Hg] 12/17/2023 12:53:00 [facility] Blood Pressure Manual Automatic 12/17/2023 12:53:00 [facility] BP Site Left arm 11/16/2023 13:01:00 00[facility] Systolic Blood Pressure 136 mm[Hg] 07/25/2024 14:19:00 [facility] Diastolic Blood Pressure 94 mm[Hg] 07/25/2024 14:19:00 [facility] Mean Arterial Pressure, Calc 108 mm[Hg] 07/25/2024 14:19:00 [facility] Peripheral Pulse Rate 79 bpm 07/25/2024 14:19:00 [facility] Respiratory Rate 18 br/min 07/25/2024 14:19:00 [facility] Respiratory Rate 16 br/min 05/12/2024 13:04:00 [facility] BP Site Left arm 05/12/2024 13:04:00 0055C [facility] Mean Arterial Pressure, Calc 107 mm[Hg] 05/12/2024 13:04:00 [facility] Blood Pressure Manual Automatic 05/12/2024 13:04:00 [facility] Peripheral Pulse Rate 70 bpm 05/12/2024 13:04:00 [facility] Systolic Blood Pressure 136 mm[Hg] 05/12/2024 13:04:00 [facility] Diastolic Blood Pressure 92 mm[Hg] 05/12/2024 13:04:00 [facility] Peripheral Pulse Rate 84 bpm 09/28/2024 19:11:00 1479D-Cs-Z[facility] Mean Arterial Pressure, Calc 88 mm[Hg] 09/28/2024 19:11:00 4298J-Wi-X-[facility] Blood Pressure Manual Automatic 09/28/2024 19:11:00 2336Y-Hq-C-[facility] Systolic Blood Pressure 115 mm[Hg] 09/28/2024 19:11:00 5954S-Kk-V-[facility] Diastolic Blood Pressure 75 mm[Hg] 09/28/2024 19:11:00 7122P-Pf-K-[facility] Blood Pressure Manual Automatic 02/07/2024 18:32:00 [facility] BP Site Left arm 02/07/2024 18:32:00 0055C [facility] Temperature Oral 36.8 Georgina 02/07/2024 18:32:00 [facility] Peripheral Pulse Rate 75 bpm 02/07/2024 18:32:00 [facility] Respiratory Rate 16 br/min 02/07/2024 18:32:00 [facility] Mean Arterial Pressure, Calc 97 mm[Hg] 02/07/2024 18:32:00 [facility] Systolic Blood Pressure 128 mm[Hg] 02/07/2024 18:32:00 [facility] Diastolic Blood Pressure 81 mm[Hg] 02/07/2024 18:32:00 [facility] Systolic Blood Pressure 137 mm[Hg] 07/26/2024 15:59:00 [facility] Diastolic Blood Pressure 93 mm[Hg] 07/26/2024 15:59:00 [facility] Respiratory Rate 16 br/min 07/26/2024 15:59:00 [facility] Mean Arterial Pressure, Calc 108 mm[Hg] 07/26/2024 15:59:00 [facility] Peripheral Pulse Rate 77 bpm 07/26/2024 15:59:00 [facility] Temperature Oral 36.9 Georgina 07/26/2024 15:59:00 [facility] BP Site Left arm 10/06/2023 19:17:00 0055C [facility] Blood Pressure Manual Automatic 10/06/2023 19:17:00 [facility] Respiratory Rate 16 br/min 10/06/2023 19:17:00 [facility] Respiratory Rate 18 br/min 07/26/2023 20:38:00 [facility] Temperature Oral 37.2 Georgina 07/26/2023 20:38:00 [facility] Blood Pressure Manual Automatic 07/26/2023 20:38:00 [facility] Temperature Oral 36.7 Georgina 07/01/2023 15:06:00 [facility] Blood Pressure Manual Automatic 07/01/2023 15:06:00 [facility] Mean Arterial Pressure, Calc 94 mm[Hg] 09/14/2024 20:26:00 [facility] BP Site Right arm 09/14/2024 20:26:00 0055C [facility] Systolic Blood Pressure 123 mm[Hg] 09/14/2024 20:26:00 [facility] Diastolic Blood Pressure 79 mm[Hg] 09/14/2024 20:26:00 [facility] Blood Pressure Manual Automatic 11/22/2023 18:00:00 00[facility] Peripheral Pulse Rate 73 bpm 11/22/2023 18:00:00 [facility] Mean Arterial Pressure, Calc 109 mm[Hg] 11/22/2023 18:00:00 [facility] BP Site Left arm 11/22/2023 18:00:00 0055A -[facility] Systolic Blood Pressure 142 mm[Hg] 11/22/2023 18:00:00 [facility] Diastolic Blood Pressure 93 mm[Hg] 11/22/2023 18:00:00 [facility] Temperature Oral 37.3 Georgina 05/21/2023 17:57:00 [facility] Encounters Combined list of: 1) Encounters from Department of Veterans Affairs facilities going backup to the last 18 months, not all VA inpatient encounters are included; 2) Encounters from the Department of Defense facilities going backup to 280 months. Location Location Details Encounter Type Encounter Number Reason For Visit Attending Provider ADM Date DC Date Status Disposition Source [address] [place] [address] [facility] rior Op Med Cln Tm A Ad) TELE CONSULT [id number] Notes Entered by: ANTON VILLAGOMEZ 03 Mar 2022 0743 ------- ------- ------- ------- -- Sx-Back and knee pain/WO OSLEY/5 86.219. 3712 TARA CALDERON 03/03 Referred for Appointment [address] [place] [address] [facility]W arrior Op Med Cln Tm A Ad) [address] [place] [address] [facility])( rior Op Med Cln Tm A Ad) OUTPATIENT [id number] Back and knee pain CESIA OSULLIVAN 03/06 Released w/o Limitations [address] [place] [address] [facility])(W arrior Op Med Cln Tm A Ad) [address] [place] [address])(War rior Op Med Cln Tm A Ad) TELE CONSULT [id number] Notes Entered by: ASHLEY ROMERO 06 Apr 2022 1107 ------- ------- ------- ------- -- Appt Andres / Alyssa kingsley/ ELFEGO HERNANDEZ 04/06 Immediate Referral [address] [place] [address])(W arrior Op Med Cln Tm A Ad) [address] [place] [address])(War rior Op Med Cln Tm A Ad) OUTPATIENT [id number] F2F - Lump under armpit- [id number] DAVE SANFORD 04/15 Released w/o Limitations [address] [place] [address])(W arrior Op Med Cln Tm A Ad) [address] [place] [address])(War rior Op Med Cln Tm A Ad) TELE CONSULT [id number] Notes Entered by: BRIGIDA SANFORD 17 Apr 2022 1216 ------- ------- ------- ------- -- Clinic follow up DAVE SANFORD 04/[address] [place] [address])(W arrior Op Med Cln Tm A Ad) [address] [place] [address])(War rior Op Med Cln Tm A Ad) OUTPATIENT [id number] F2F- lower back pain, DAVE SANFORD 06/30 Released w/o Limitations [address] [place] [address])(W arrior Op Med Cln Tm A Ad) [address] [place] [address])(Phy sical Therapy) OUTPATIENT [id number] Low back pain, unspeci judah CARDONA TAMARA G 07/27 Released w/o Limitations [address] [place] [address])(P hysical Therapy ) [address] [place] [address])(War rior Op Med Cln Tm A Ad) TELE CONSULT [id number] Notes Entered by: EMILIE STEEL 05 Aug 2022 1559 ------- ------- ------- ------- -- Network results Endocri nology 022 HLW SANDRA JOHNSON CAPT 08/[address] [place] [address] [facility])(W arrior Op Med Cln Tm A Ad) [address] [place] [address] [facility])(Phy sical Therapy) OUTPATIENT [id number] BACK PAIN TAMARA CARDONA 08/12 Released w/o Limitations [address] [place] [address] Chang [facility]P hysical Therapy ) [address] [place] [address] [facility])(Phy sical Therapy) OUTPATIENT [id number] back pain TAMARA CARDONA 09/04 Released w/o Limitations [address] [place] [address] ([facility])(P hysical Therapy ) [address] [place] [address])(War rior Op Med Cln Tm A Ad) OUTPATIENT [id number] F2F - pain in stomach and knees, SANDRA JOHNSON CAPT 09/22 Released with Work/Duty Limitations [address] [place] [address] Chang [facility])(W arrior Op Med Cln Tm A Ad) [address] [place] [address] [facility])(War rior Op Med Cln Tm A Ad) TELE CONSULT [id number] Notes Entered by: Virginia ARMAS 02 Oct 2022 1517 ------- ------- ------- ------- -- SX: Thyroid Nodules Painful /Johnson/ IRINA GLORIA 10/02 Referred for Appointment [address] [place] [address] [facility])(W arrior Op Med Cln Tm A Ad) [address] [place] [address] [facility])(War rior Op Med Cln Tm A Ad) OUTPATIENT [id number] FTF LEFT ESOPHAG EAL NODULE PAIN W MINOR SOB W CORRY SOLIS 10/05 Released w/o Limitations [address] [place] [address] [facility])(W arrior Op Med Cln Tm A Ad) [facility] ([facility])(Phy sical Therapy) OUTPATIENT [id number] TAMARA CARDONA 10/06 Released w/o Limitations [facility] [place] ([facility])(P hysical Therapy ) [facility] [place] ([facility])(Phy sical Therapy) OUTPATIENT [id number] back pain TAMARA CARDONA 10/27 Released w/o Limitations [facility] [place] ([facility])(P hysical Therapy ) [facility] [place] ([facility])(War rior Op Med Cln Tm A Ad) OUTPATIENT [id number] [facility] . ARTURO JOHNSON 11/03 Released w/o Limitations [facility] [place] ([facility])(W arrior Op Med Cln Tm A Ad) [facility] [place] ([facility])(Phy sical Therapy[facility] OUTPATIENT [id number] back pain TAMARA CARDONA 11/20 Released w/o Limitations [facility] [place] ([facility])(P hysical Therapy ) [facility])(Sco tt [facility] Tm Blue) TELE CONSULT [id number] Notes Entered by: CAIN WONG 24 Nov 2022 0925 ------- ------- ------- ------- -- Network results Gastroe carlos gy 023 AMA CATHERINE 11/24 Released to [facility])(S cott [facility] Tm Blue) [facility] [facility])(War rior Op Med Cln Tm A Ad) OUTPATIENT [id number] F2F - follow up appoint [facility] ARTURO JOHNSON 11/27 Released w/o Limitations [facility] [place] ([facility])(W arrior Op Med Cln Tm A Ad) [facility] [facility])(War rior Op Med Cln Tm A Ad) TELE CONSULT [id number] Notes Entered by: ARTURO JOHNSON 16 Dec 2022 1536 ------- ------- ------- ------- -- Radiolo gy Results - ARTURO JOHNSON 12/[address] [place] [address])(W arrior Op Med Cln Tm A Ad) [address] [place] [address])(War rior Op Med Cln Tm A Ad) TELE CONSULT [id number] Notes Entered by: VA BECERRA 18 Dec 2022 0843 ------- ------- ------- ------- -- Medicat ion is discont inued needs another MAYA JOHNSONPRANAV CARSON 12/[address] [place] [address])(W arrior Op Med Cln Tm A Ad) [address] [place] [address])(Aud iology Procedure s) OUTPATIENT [id number] Notes Entered by: Alcon DE LEON 18 Dec 2022 0905 ------- ------- ------- ------- -- [facility] KARINE DE LEON 12/18 Released w/o Limitations [address] [place] [address])(A udiolog y Procedu res) [address] [place] [address])(War rior Op Med Cln Tm A Ad) TELE CONSULT [id number] Notes Entered by: KRISTAL BARGER 06 Jan 2023 1302 ------- ------- ------- ------- -- SX Stomach Pain / Johnson / IRINA GLORIA 01/06 Referred for Appointment [address] [place] [address])(W arrior Op Med Cln Tm A Ad) [address] [place] [address])(War rior Op Med Cln Tm A Ad) OUTPATIENT [id number] lower abdomin al pain/ more from CHANELL Prado 01/07 Released w/o Limitations [address] [place] [address] [facility])(W arrior Op Med Cln Tm A Ad) [address] [place] [address] [facility])(Phy sical Therapy) OUTPATIENT [id number] f/u back TAMARA CARDONA 01/07 Released w/o Limitations [address] [place] [address] [facility] ([facility])(P hysical Therapy ) [address] [place] [address] [facility])(War rior Op Med Cln Tm A Ad) TELE CONSULT [id number] Notes Entered by: BETHANY LALA 21 Jan 2023 0746 ------- ------- ------- ------- -- Lab and imaging results CHANELL ARAYA 01/[address] [place] [address] [facility])(W arrior Op Med Cln Tm A Ad) 00[facility] Dental [id number] MARGARET SEBASTIANOPF 11/16 Discharge Disposition: Home or Self Care 5C-3 [facility] [id number] Anxiety disorde r, unspeci fied JASONSIMMO NS 12/19 Discharge Disposition: Home or Self Care 5C-3 [facility] [id number] Low back pain, unspeci fied JASONSIMMO NS 12/26 Discharge Disposition: Home or Self Care 0055C-3 [facility] Outpatient [id number] CESIA LEE 12/26 Discharge Disposition: Home or Self Care 0055A-3 [facility] Between Visit [id number] 12/27 Discharge Disposition: Home or Self Care 5C-3 [facility] Procedures Combined list of: 1) Procedures from Department of Veterans Affairs facilities going back up to thelast 18 months, not all VA non-surgical procedures are included; 2) All procedures from the Department of Defense facilities. Procedure Procedure Type Code Date Perfomer Comments Sourc e MANUAL THERAPY TECHNIQUES (EG, MOBILIZATION/ MANIPULATION, MANUAL LYMPHATIC DRAINAGE, MANUAL TRACTION), 1 OR MORE REGIONS, EACH 15 MINUTES 3 DoD TELE ASSESS & MGT SRV PROV QUAL NONPHYS HLTH CARE PRO TO EST PAT,PARENT,GUARD NOT ORIG REL ASSESS & MGT SRV PROV W/IN PREV 7 DAYS NOR LEAD ASSESS & MGT SRV/PX W/IN NXT 24 HR/SOON APT;5-10 MIN MED DIS 3 DoD PURE TONE AUDIOMETRY (THRESHOLD), AUTOMATED; AIR ONLY 3 DoD TELE ASSESS & MGT SRV PROV QUAL NONPHYS HLTH CARE PRO TO EST PAT,PARENT,GUARD NOT ORIG REL ASSESS & MGT SRV PROV W/IN PREV 7 DAYS NOR LEAD ASSESS & MGT SRV/PX W/IN NXT 24 HR/SOON APT;5-10 MIN MED DIS 3 DoD BRIEF EMOTIONAL/BEHAVIORA L ASSESSMENT (EG, DEPRESSION INVENTORY, ATTENTION-DEFICIT/H YPERACTIVITY DISORDER [ADHD] SCALE), WITH SCORING AND DOCUMENTATION, PER STANDARDIZED INSTRUMENT 3 DoD APPLICATION OF A MODALITY TO 1 OR MORE AREAS; TRACTION, MECHANICAL 3 DoD BRIEF COMM TECH-BASE SERV,E.G. VIRT CHK-IN,BY PHYS/OTH QUAL HCP,RPT E&M SERV,PROV TO EST PT,NOT ORIG FRM REL E/M SERV PROV W/IN PREV 7DAY NOR LEAD TO E/M SRV/PX W/IN NEXT 24HR/SOON JUAN A; 5-10 MIN DISC 3 DoD APPLICATION OF A MODALITY TO 1 OR MORE AREAS; TRACTION, MECHANICAL 3 DoD APPLICATION OF A MODALITY TO 1 OR MORE AREAS; TRACTION, MECHANICAL 3 DoD TELE ASSESS & MGT SRV PROV QUAL NONPHYS HLTH CARE PRO TO EST PAT,PARENT,GUARD NOT ORIG REL ASSESS & MGT SRV PROV W/IN PREV 7 DAYS NOR LEAD ASSESS & MGT SRV/PX W/IN NXT 24 HR/SOON APT;5-10 MIN MED DIS 3 DoD APPLICATION OF A MODALITY TO 1 OR MORE AREAS; TRACTION, MECHANICAL 3 [facility] UNLISTED MODALITY (SPECIFY TYPE AND TIME IF CONSTANT ATTENDANCE) 2 [facility] MANUAL THERAPY TECHNIQUES (EG, MOBILIZATION/ MANIPULATION, MANUAL LYMPHATIC DRAINAGE, MANUAL TRACTION), 1 OR MORE REGIONS, EACH 15 MINUTES 2 [facility] TELE ASSESS & MGT SRV PROV QUAL NONPHYS HLTH CARE PRO TO EST PAT,PARENT,GUARD NOT ORIG REL ASSESS & MGT SRV PROV W/IN PREV 7 DAYS NOR LEAD ASSESS & MGT SRV/PX W/IN NXT 24H/SOON APT; 11-20 MIN MED DIS 2 DoD TELE ASSESS & MGT SRV PROV QUAL NONPHYS HLTH CARE PRO TO EST PAT,PARENT,GUARD NOT ORIG REL ASSESS & MGT SRV PROV W/IN PREV 7 DAYS NOR LEAD ASSESS & MGT SRV/PX W/IN NXT 24 HR/SOON APT;5-10 MIN MED DIS 2 [facility] Non-Physician Phone Call To Patient/Provider Brief (5-10min) Non-Physician Phone Call To Patient/Provider Brief (5-10min) [id number] TARA CALDERON [facility] Non-Physician Phone Call To Pt/Provider Intermed (11-20 min) Non-Physician Phone Call To Pt/Provider Intermed (11-20 min) [id number] ELFEGO HERNANDEZ [facility] Mobilization Soft Ti ue Mobilization Soft Tissue [id number] TAMARA CARDONA Modalities - Unlisted Modality Modalities - Unlisted Modality [id number] TAMARA CARDONA Physical Medicine Physical Therapy Re-Evaluation Physical Medicine Physical Therapy Re-Evaluation [id number] TAMARA CARDONA [facility] Brief communication technology-based service, e.g. virtual check-in, by a physician or other qualified health care profalcon cano who can report evaluation and management services, provided to an established patient, not originating from a related E/M service provided within the previous 7 days nor leading to an E/M service or procedure within the next 24 hours or soonest available appointment; 5-10 minutes of medical discu ARTURO Hill [facility] Threshold Audiogram (Pure Tone) Automated Threshold Audiogram (Pure Tone) Automated 0208T KARINE DE LEON [facility] Repair inguinal hernia, sliding, any age Repair inguinal hernia, sliding, any age [id number] 0 0421C-USCG NADIA Burgos left thumb extensor tendon repair 0 0421C-USCG NADIA Burgos wisdom teeth 0421C-USCG NADIA Burgos Social History Combined list of available smoking, tobacco, and other social history from Department of Defense and Veterans Affairs facilities. Social History Type Response Date Comment Sourc e Sex Representation Male (finding) 04/08/2021 Un known Organization This section is an empty social history section. [facility] Tobacco Cigarette use: Former-cigarette user. *Stopped cigarettes age (*required for former users to complete the Recommendation) 23 Years. Other Tobacco use: Never-other tobacco user (not cigarettes). Ambulatory Pharmacy Sexual Orientation Ambula tory Pharmacy Gender identity Ambulator y Pharmacy Assessment and Plan Combined list of future care activities from Department of Defense and Veterans Affairs facilities (e.g., assessment and plan notes, appointments, orders, and referrals). Additional future care activities may be listed in the Plan of Care section. Result Assessment and Plan Date Source Assessment and Plan Extracted from:Title : [facility] LBP Author: CESIA OSULLIVAN PA Date: 12/26/24 1. L ow back pain 39 y/o ADAF male with acute on chronic low back pain w radiculopathy sxs. N o red flag sxs or exam findings. S uspect s pasm Recommend F itness restrictions at this time. Place on 72 hour quarters. Complete plain films. - Continue R obaxin a nd P rednisone as p reviously p rescribed for pain - D iscussed ER precautions - F/u PRN Ordered: XR Spine Lumbosacral 2 or 3 Views The patient (is) World Wide Qualified. AM Dispo: Non-Fly Cleared for AFSC/MOS Duties: Y es Cleared for continued service: Yes Cleared for mobility duties: Yes Cleared for participation in physical fitness program: Yes with restrictions Maj Diego Osullivan BSC, PAChristianoC [facility] ([facility]) [place] Please note that this dictation was completed with computer voice recognition software, Muzy. Quite often unanticipated grammatical, syntax, homophones, and other interpretive errors are inadvertently transcribed by the computer software. Please disregard these errors and excuse any errors that have escaped final proofreading. If are any questions regarding documentation, please contact this provider directly. Extracted from:Title: [facility] Anxiety Author: CESIA OSULLIVAN PA Date: 12/19/24 1. A nxiety VIRTUAL APPT 39 y/o ADAF male with improving d epression/anxiety. R eviewed PHQ-9, ELISABETH-7. D oes not appear to be increased safety risk. Continue Zoloft 100 mg once daily dosing, given fatigue and sexual side effects began Wellbutrin 150 mg once daily dosing. - Discussed can take 4-6 weeks to see improvement - Reviewed MH tx o ptions - Seek emergent care for any HI/SI - F/u in 6-8 weeks. Ordered: buPROPion(Wellbutrin XL 150 mg/24 hours oral tablet, extended release), 1 tab(s), Oral, every 24 hr, # 60 tab(s), 0 total refill(s), Maintenance, Pharmacy: [facility] #[id number] [External Rx] sertraline(Zoloft 100 mg oral tablet), 1 tab(s), Oral, Daily, # 60 tab(s), 0 total refill(s), Maintenance, Pharmacy: [facility] #[id number] [External Rx] The patient (is) World Wide Qualified. AM Dispo: Non-Fly Cleared for AFSC/MOS Duties: Y es Cleared for continued service: Yes Cleared for mobility duties: Yes Cleared for participation in physical fitness program: Yes Maj Diego Osullivan BSC, PAChristianoC [facility] ([facility]) [place] Please note that this dictation was completed with computer voice recognition software, Muzy. Quite often unanticipated grammatical, syntax, homophones, and other interpretive errors are inadvertently transcribed by the computer software. Please disregard these errors and excuse any errors that have escaped final proofreading. If are any questions regarding documentation, please contact this provider directly. Extracted from:Title: [facility] Anxiety Author: CESIA OSULLIVAN PA Date: 11/02/24 1. A nxiety 39 y /o ADCG m tom with worsening depression/anxiety. R eviewed PHQ-9, ELISABETH-7. D oes not appear to be increased safety risk. R ecommend starting on daily Zoloft 50 mg x 1 week, then increasing to 100 mg once daily. - Discussed can take 4-6 to see improvement with SSRIs - Reviewed MH tx o ptions - Seek emergent care for any HI/SI - F/u in 4-6 w eeks. Ordered: sertraline(sertraline 50 mg oral tablet), See Instructions, Take one tablet by mouth every day for 7 days, then take two tablets by mouth every day thereafter, # 77 tab(s), 0 total refill(s), Maintenance, 42 days, Pharmacy: [facility] #[id number] [External Rx] 2. E ssential hypertension Est d x. Home BP at goal range. P er JNC 8 BP Goal < 140/90. Asymptomatic. Complete screening labs. Continue Lisinopril 10 mg once daily dosing - Reviewed diet/exercise, impact of weight loss - Discussed DASH diet - Limit ETOH intake - Continue h ome BP monitoring - F/u in 30 days to re-evaluate BP and titrate medication Ordered: lisinopril(lisinopril 10 mg oral tablet), 1 tab(s), Oral, Daily, for blood pressure, # 90 tab(s), 3 total refill(s), Maintenance, Pharmacy: [facility] #[id number] [External Rx] Basic Metabolic Panel Microalbumin Panel, Urine The patient (is) World Wide Qualified. AM Dispo: Non-Fly Cleared for AFSC/MOS Duties: Y es Cleared for continued service: Yes Cleared for mobility duties: Yes Cleared for participation in physical fitness program: Yes EPIFANIO ArceoC, PA-C [facility] ([facility]) [place] Please note that this dictation was completed with computer voice recognition software, Muzy. Quite often unanticipated grammatical, syntax, homophones, and other interpretive errors are inadvertently transcribed by the computer software. Please disregard these errors and excuse any errors that have escaped final proofreading. If are any questions regarding documentation, please contact this provider directly. Extracted from:Title: Right ganglion cyst Author: SADI SAUL DO Date: 09/28/24 Ganglion cyst Patient p resented to [facility] for US-guided aspiration of cyst on volar aspect of wrist. Previous US demonstrated transilluminating, multiloculated 1.2 x 1.5 x 0.6 cm c yst located adjacent to vessels. Discussed with patient given multiloculated nature of cyst, conservative management with aspiration will likely be ineffective in preventing recurrence. Additionally, discussed other complications of procedure including proximity to vessels and risk of infection. After risks and benefits discussion, patient elected to pursue further treatment with hand surgeon. 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 I have reviewed the note and agree with the findings, assessment, and plan except as I have documented below. Follow up as listed. All labs/imaging/consults to be followed by the ordering provider. Capt Badillo DO, [employer], Staff Physician Extracted from:Title: [facility] - Virtual MHA/PHA Author: MC NEAL MD Date: 09/21/24 1. 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 IMR Status: R ED D ental Class 3 , s cheduled October 31. ? 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 [id number] HIV, UTD. Reviewed valet service attendant's completed PHA record review and IMR status. MHA completed and copied to this record. 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 Preventative services not reviewed as part of PHA process, readiness review only, PHA d oes not take the place of routine wellness or PCM visit. Reviewed readiness immunizations s tatus. Reviewed readiness lab. Reviewed o ccupational health examinations status, member to schedule any overdue items with the [facility], member not contacted. Any non-readiness medical concerns to be addressed with PCM. Medication list reviewed for any unaddressed retention limiting conditions o r concerns; however member not contacted a nd interviewed a t time of visit. A or recent medication changes and/or concerns will n eed to be addressed by PCM team. [facility] 0min. PHA completed and ASIMS updated. Any retention a nd/or readiness issues identified while conducting the PHA have been communicated to PCM via Mary Lou. produce production team member to follow up with iain [place] PCM for all other c oncerns. //SIGNED// MC NEAL, Col, USAF, MC, FS Family Physician/Flight Surgeon [address] [facility] [place] (P) 2. A nxiety M ember with anxiety/depression, did review available resources with member and reviewed counseling on psychiatric medications f rom last Apr-Jun 2023 prior to my going on 6 month TDY from October to April, a nd member being lost to care after l ast follow up with Terrell gil i n F eb -did let member know he will need to follow up with his PCM if interested in starting psychiatric medications or referral for therapy -f/u with PCM and MH as needed NATALEE [phone] Extracted from:Title: [facility] Back pain Author: BHARATHI HERNANDEZ PA Date: 09/14/24 1. T horacic back pain 38 Years o ld M c /o u pper back pain x 2 m onths. Denies injury. D enies r adiation. Endorses occipital HAs. PE u nremarkable. Suspect tightness of t rapezius. - Advised to avoid aggravating activities - Recommended gentle exercise/stretching and heat t herapy - N SAIDs prn. Risks discussed with prolonged use - Flexeril 10mg. Discussed SE - P T referral placed - F /u p rn. Will consider imaging, BFA, Pain Management, and/or Neurosurgery consult? Ordered: cyclobenzaprine(cyclobenzaprine 10 mg oral tablet), 1 tab(s), Oral, TID, PRN spasm, Use on PRN basis for severe pain. Limit use to one tablet every 8 hours, X 30 days, # 30 tab(s), 0 total refill(s), Acute, Pharmacy: [facility] [Not filled] Referral Request 2.0 - [facility] 2. L ow back pain Pt reports chronic LBP. Endorses improvement with PT and would like another referral. Denies saddle anesthesia. Denies bowel and bladder incontinence. PE u nremarkable.? No foot drop. No midline tenderness. Neurovascularly intact. - Advised to avoid a ggravating activities - Recommended gentle exercise/stretching and heat therapy - NSAIDs prn. Risks discussed with prolonged use - Lidoderm patches prn - PT referral placed - F/u prn. Will consider imaging, Ortho vs Pain Management c onsult if no improvement Ordered: cyclobenzaprine(cyclobenzaprine 10 mg oral tablet), 1 tab(s), Oral, TID, PRN spasm, Use on PRN basis for severe pain. Limit use to one tablet every 8 hours, X 30 days, # 30 tab(s), 0 total refill(s), Acute, Pharmacy: [facility] [Not filled] Referral Request 2.0 - [facility] Medications reconciled. Pt verbalized understanding and agreement. BHARATHI HERNANDEZ, 1st Lt, PA-C [facility] Medicine [place] [address] Extracted from:Title: [facility] - mass of R wrist Author: LORI ANTOINE MD Date: 07/26/24 1. M ass of wrist Chronic, 6 mths. P ain w/ certain activities. No red flags on exam. Suspect ganglion cyst most likely v lipoma. - US for further characterization - If cystic, will refer to [facility] proc clinic for tx - If lipomatous, will refer to hand surgeon - Advised against trauma to tx (hitting w/ a bible or heavy book) - F/u pending US results, will contact pt once results Ordered: US Superficial Extremity Lori Antoine MD, RENETTA, MPH PGY-3, Family Medicine Captain, [facility], [place], [place] Extracted from:Title: [facility] URI Author: JOE KATZ, Date: 07/25/24 URI - Upper respiratory infection Time course and symptoms consistent with viral etiology. Afebrile, no significant respiratory symptoms to suggest influenza. No respiratory distress, evidence of moderate to severe range dehydration, or acutely concerning vital signs. Benign exam without focal findings to suggest bacterial etiology of PNA or sinusitis. Will treat symptomatically - Tylenol/motrin prn for pain, discomfort and fever - Encouraged maintaining hydration and rest - Tea, honey and salt water gargles for sore throat and cough - Guaifenesin/pseudoephedrine f or cough and congestion - Benzocaine lozenges for sore throat - Saline sinus rinses recommended for rhinosinusitis symptoms, instructions for use provided - Pt. to follow up for worsening symptoms in 3-5 days or persistence in one week - RTC for respiratory distress or inability to hydrate per our discussion - Pt told to expect cough to resolve slowly over next several weeks up to 2 months - 24 hours of quarters placed f/u in 2 days if symptoms worsen or still feel too sick to return to work. Joe Katz DO, , BRUNA, Family Physician [facility] in [place], [place] [address] [address] Extracted from:Title: [facility] - Low back/hip pain Author: OSMAR PEREZ DO Date: 05/12/24 1. L ow back pain Chronic. Stable. Suspect 2/2 degenerative forces, no recent injury or trauma. Will refer to PT for further evaluation and management. Will obtain radiographs to r/o bony abnormalities. Ordered: Referral Request 2.0 - DoD 2. R ight hip pain New finding. Acute, uncontrolled. Low suspicion for fracture with no history of trauma. Low suspicion for dangerous medical conditions including bone tumor, septic arthritis, osteonecrosis, or aortoiliac arterial insufficiency. No other joint pain to suggest rheumatoid arthritis. Plan: - Referrals: PT referral with emphasis on strengthening muscles stabilizing the scapula followed by correcting imbalances in rotator cuff muscles, then improving overall shoulder strength and coordination - XR to r/o bony abnormalities, consider referral to sports medicine if symptoms persist. Ordered: Referral Request 2.0 - DoD Orders: XR Hip w/ Pelvis 2 or 3 Views Right XR Spine Lumbosacral 4+ Views The patient (is ) World Wide Qualified. 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 Visit deployment related: N o Profile Reviewed MEB in progress: No IMR/ASIMS Status: [_] Green (no action), Member aware. [_] Yellow (Action: Member is currently due for _, notified to take action) [X] RED (Action: Member is currently OVERDUE for PHA and HIV, notified to take action/or addressed overdue items) Osmar Perez DO, , [employer], Auto Tune Up Mechanic [address], [place] Extracted from:Title: [facility] - LBP Author: TRI WOOD Date: 11/22/23 D iagnosis: 1 . L umbar spondylosis Comment: C hiropractic Diversified Adjustments Prone T/S S enrico posture to Ilium, SI and L/S A T Performed attended, prone, Carey Flexion/Distraction (12min) to L/S - 59 Bugs: b ack into the table. Once able to breath while bracing core in this position, begin to progress exercise. 1. Extend one arm at a time overhead until just above the table, then alternate 2. E xtend o ne leg at a time until just above the table, then alternate 3. Extend one arm and opposite leg at the same time, then alternate Patient was shown and demonstrated understanding. Perform 3 sets of 10 reps. ( 10min) Hip Mobility 90/90 Stretches: The patient is s eated on the floor with both knees flexed to 90*, one pointing forward and one pointing out laterally, with the pelvis facing forward. The patient was instructed to sit up tall and push knees into the ground for 30 seconds and then to rotate, pivoting on the heels, to the other side. T he patient was instructed t o perform 3 sets of 30 seconds bilaterally, twice daily. (10min) Pin and stretch p erformed to: i liolumbar ligament l cait dorsal s acral ligament? O rdered: Ther Px 1/> Areas Each 15 Minutes Massage 19603; 11/22/2023 14:31:00 CDT, 10 b y ENRIKE VILLASENOR DC ? Therapeutic Px 1/> Areas Each 15 Min Exercises [id number]; 11/22/2023 14:31:00 CDT, 10 ? 18710 - Clinic New Level 3; 11/22/2023 14:31:00 CDT, 25 ? Manual Therapy Tqs 1/> Regions Each 15 Minutes [id number]; 11/22/2023 14:31:00 CDT, 59 ? Chiropractic Manipulative Tx Spinal 1-2 Regions [id number]; 11/22/2023 14:31:00 CDT, AT D iagnosis: 2 . S acroiliac joint somatic dysfunction Comment: C hiropractic Diversified Adjustments Prone T/S S enrico posture to Ilium, SI and L/S A T Ordered: [address] [place] [address] Level 3; 11/22/2023 14:31:00 CDT, 25 ENRIKE Núñez DC ? Chiropractic Manipulative Tx Spinal 1-2 Regions [id number]; 11/22/2023 14:31:00 CDT, AT D iagnosis: 3 . T horacic segmental dysfunction Comment: C hiropractic Diversified Adjustments Prone T/S S enrico posture to Ilium, SI and L/S A T Ordered: [address] [place] [address] Level 3; 11/22/2023 14:31:00 CDT, 25 b y ENRIKE VILLASENOR DC ? Chiropractic Manipulative Tx Spinal 1-2 Regions [id number]; 11/22/2023 14:31:00 CDT, AT D iagnosis: 4 . L umbar segmental dysfunction Comment: C hiropractic Diversified Adjustments Prone T/S S enrico posture to Ilium, SI and L/S A T Ordered: [address] [place] [address] Level 3; 11/22/2023 14:31:00 CDT, 25 b ENRIKE Burgos DC ? Chiropractic Manipulative Tx Spinal 1-2 Regions [id number]; 11/22/2023 14:31:00 CDT, AT Diagnosis of S pondylosis, Lumbar Region M47.896 S acroiliac joint d ysfunction ? is consistent with clinical findings of b iomechanical low back pain.SIJ dysfunction. & #160;loss of segmental ROM. positive orthopedic exam. Patient prognosis is g ood b ased on patient's i nitial positive response to treatment, reported decreased pain and increase in range of motion s/p treatment. Patient advised of the nature of chiropractic examination and treatment, the risks and benefits of chiropractic versus other procedures for t his condition, relative chance of each occurrence, exacerbation of current clinical s/sx, and alternative options including no treatment. Verbal informed consent was given by the patient to proceed with evaluation and treatment. Patient may expect total relief from pain, temporary relief from pain, increased pain, residual muscle soreness after the initial treatment which should resolve within a few days. If pain becomes intolerable patient to contact this clinic directly for acute care appointment and/or referral instruction. Advised patient consent may be revoked by them at any time. Pt verbalized understanding of informed consent and verbalized consent to examination and treatment today. Pt directs consent to be valid for all treatments rendered in this clinic. T joanne for patient questions was allotted and all questions were answered. Ileana Ricardo [facility] xtern, assisted Dheeraj villalobos [facility] patient care. //SIGNED// Dr. Enrike Villasenor DC, RMSK Chiropractic Physician [address] [facility] [place] [facility] Main Line DSN/Comm: [phone] / [phone] 11/22/23 15:19:08 Extracted from:Title: Ambulatory Patient Education Author: BEULAH MCMULLEN MD Date: 08/05/21 Patient Education Materials Follows: Thyroid Nodule A thyroid nodule is an isolated growth of thyroid cells that forms a lump in your thyroid gland. The thyroid gland is a butterfly-shaped gland. It is found in the lower front of your neck. This gland sends chemical messengers (hormones) through your blood to all parts of your body. These hormones are important in regulating your body temperature and helping your body to use energy. Thyroid nodules are common. Most are not cancerous (benign). You may have one nodule or several nodules. Different types of thyroid nodules include nodules that: Grow and fill with fluid (thyroid cysts). Produce too much thyroid hormone (hot nodules or hyperthyroid). Produce no thyroid hormone (cold nodules or hypothyroid). Form from cancer cells (thyroid cancers). What are the causes? In most cases, the cause of this condition is not known. What increases the risk? The following factors may make you more likely to develop this condition. Age. Thyroid nodules become more common in people who are older than 45 years of age. Gender. Benign thyroid nodules are more common in women. Cancerous (malignant) thyroid nodules are more common in men. A family history that includes: Thyroid nodules. Pheochromocytoma. Thyroid carcinoma. Hyperparathyroidism. Certain kinds of thyroid diseases, such as Darline's thyroiditis. Lack of iodine in your diet. A history of head and neck radiation, such as from previous cancer treatment. What are the signs or symptoms? In many cases, there are no symptoms. If you have symptoms, they may include: A lump in your lower neck. Feeling a lump or tickle in your throat. Pain in your neck, jaw, or ear. Having trouble swallowing. Hot nodules may cause symptoms that include: Weight loss. Warm, flushed skin. Feeling hot. Feeling nervous. A racing heartbeat. Cold nodules may cause symptoms that include: Weight gain. Dry skin. Brittle hair. This may also occur with hair loss. Feeling cold. Fatigue. Thyroid cancer nodules may cause symptoms that include: Hard nodules that feel stuck to the thyroid gland. Hoarseness. Lumps in the glands near your thyroid (lymph nodes). How is this diagnosed? A thyroid nodule may be felt by your health care provider during a physical exam. This condition may also be diagnosed based on your symptoms. You may also have tests, including: An ultrasound. This may be done to confirm the diagnosis. A biopsy. This involves taking a sample from the nodule and looking at it under a microscope. Blood tests to make sure that your thyroid is working properly. A thyroid scan. This test uses a radioactive tracer injected into a vein to create an image of the thyroid gland on a computer screen. Imaging tests such as MRI or CT scan. These may be done if: Your nodule is large. Your nodule is blocking your airway. Cancer is suspected. How is this treated? Treatment depends on the cause and size of your nodule or nodules. If the nodule is benign, treatment may not be necessary. Your health care provider may monitor the nodule to see if it goes away without treatment. If the nodule continues to grow, is cancerous, or does not go away, treatment may be needed. Treatment may include: Having a cystic nodule drained with a needle. Ablation therapy. In this treatment, alcohol is injected into the area of the nodule to destroy the cells. Ablation with heat (thermal ablation) may also be used. Radioactive iodine. In this treatment, radioactive iodine is given as a pill or liquid that you drink. This substance causes the thyroid nodule to shrink. Surgery to remove the nodule. Part or all of your thyroid gland may need to be removed as well. Medicines. Follow these instructions at home: Pay attention to any changes in your nodule. Take owxr-uqy-hxafcos and prescription medicines only as told by your health care provider. Keep all follow-up visits as told by your health care provider. This is important. Contact a health care provider if: Your voice changes. You have trouble swallowing. You have pain in your neck, ear, or jaw that is getting worse. Your nodule gets bigger. Your nodule starts to make it harder for you to breathe. Your muscles look like they are shrinking (muscle wasting). Get help right away if: You have chest pain. There is a loss of consciousness. You have a sudden fever. You feel confused. You are seeing or hearing things that other people do not see or hear (having hallucinations). You feel very weak. You have mood swings. You feel very restless. You feel suddenly nauseous or throw up. You suddenly have diarrhea. Summary A thyroid nodule is an isolated growth of thyroid cells that forms a lump in your thyroid gland. Thyroid nodules are common. Most are not cancerous (benign). You may have one nodule or several nodules. Treatment depends on the cause and size of your nodule or nodules. If the nodule is benign, treatment may not be necessary. Your health care provider may monitor the nodule to see if it goes away without treatment. If the nodule continues to grow, is cancerous, or does not go away, treatment may be needed. This information is not intended to replace advice given to you by your health care provider. Make sure you discuss any questions you have with your health care provider. Document Released: 07/09/2005 Document Revised: 04/03/2019 Document Reviewed: 04/03/2019 [employer] Interactive Patient Education 2019 [employer] Future Scheduled TestsLaboratoryMicroalbumin Panel, Urine 11/02/24Basic Metabolic Panel 11/02/24 01/03/2025 [id number] Assessment and Plan Extracted from:Title : [facility] LBP Author: CESIA OSULLIVAN PA Date: 12/26/24 1. L ow back pain 39 y/o ADAF male with acute on chronic low back pain w radiculopathy sxs. N o red flag sxs or exam findings. S uspect s pasm Recommend F itness restrictions at this time. Place on 72 hour quarters. Complete plain films. - Continue R obaxin a nd P rednisone as p reviously p rescribed for pain - D iscussed ER precautions - F/u PRN Ordered: XR Spine Lumbosacral 2 or 3 Views The patient (is) World Wide Qualified. AM Dispo: Non-Fly Cleared for AFSC/MOS Duties: Y es Cleared for continued service: Yes Cleared for mobility duties: Yes Cleared for participation in physical fitness program: Yes with restrictions Maj Diego Osullivan BSC, PAChristianoC [facility] ([facility]) [place] Please note that this dictation was completed with computer voice recognition software, Muzy. Quite often unanticipated grammatical, syntax, homophones, and other interpretive errors are inadvertently transcribed by the computer software. Please disregard these errors and excuse any errors that have escaped final proofreading. If are any questions regarding documentation, please contact this provider directly. Extracted from:Title: [facility] Anxiety Author: CESIA OSULLIVAN PA Date: 12/19/24 1. A nxiety VIRTUAL APPT 39 y/o ADAF male with improving d epression/anxiety. R eviewed PHQ-9, ELISABETH-7. D oes not appear to be increased safety risk. Continue Zoloft 100 mg once daily dosing, given fatigue and sexual side effects began Wellbutrin 150 mg once daily dosing. - Discussed can take 4-6 weeks to see improvement - Reviewed MH tx o ptions - Seek emergent care for any HI/SI - F/u in 6-8 weeks. Ordered: buPROPion(Wellbutrin XL 150 mg/24 hours oral tablet, extended release), 1 tab(s), Oral, every 24 hr, # 60 tab(s), 0 total refill(s), Maintenance, Pharmacy: [facility] #[id number] [External Rx] sertraline(Zoloft 100 mg oral tablet), 1 tab(s), Oral, Daily, # 60 tab(s), 0 total refill(s), Maintenance, Pharmacy: [facility] #[id number] [External Rx] The patient (is) World Wide Qualified. AM Dispo: Non-Fly Cleared for AFSC/MOS Duties: Y es Cleared for continued service: Yes Cleared for mobility duties: Yes Cleared for participation in physical fitness program: Yes Maj Diego Osullivan BSC, PA-C [facility] ([facility]) [place] Please note that this dictation was completed with computer voice recognition software, Muzy. Quite often unanticipated grammatical, syntax, homophones, and other interpretive errors are inadvertently transcribed by the computer software. Please disregard these errors and excuse any errors that have escaped final proofreading. If are any questions regarding documentation, please contact this provider directly. Extracted from:Title: [facility] Anxiety Author: CESIA OSULLIVAN PA Date: 11/02/24 1. A nxiety 39 y /o ADCG m tom with worsening depression/anxiety. R eviewed PHQ-9, ELISABETH-7. D oes not appear to be increased safety risk. R ecommend starting on daily Zoloft 50 mg x 1 week, then increasing to 100 mg once daily. - Discussed can take 4-6 to see improvement with SSRIs - Reviewed MH tx o ptions - Seek emergent care for any HI/SI - F/u in 4-6 w eeks. Ordered: sertraline(sertraline 50 mg oral tablet), See Instructions, Take one tablet by mouth every day for 7 days, then take two tablets by mouth every day thereafter, # 77 tab(s), 0 total refill(s), Maintenance, 42 days, Pharmacy: [facility] #[id number] [External Rx] 2. E ssential hypertension Est d x. Home BP at goal range. P er JNC 8 BP Goal < 140/90. Asymptomatic. Complete screening labs. Continue Lisinopril 10 mg once daily dosing - Reviewed diet/exercise, impact of weight loss - Discussed DASH diet - Limit ETOH intake - Continue h ome BP monitoring - F/u in 30 days to re-evaluate BP and titrate medication Ordered: lisinopril(lisinopril 10 mg oral tablet), 1 tab(s), Oral, Daily, for blood pressure, # 90 tab(s), 3 total refill(s), Maintenance, Pharmacy: [facility] #[id number] [External Rx] Basic Metabolic Panel Microalbumin Panel, Urine The patient (is) World Wide Qualified. AM Dispo: Non-Fly Cleared for AFSC/MOS Duties: Y es Cleared for continued service: Yes Cleared for mobility duties: Yes Cleared for participation in physical fitness program: Yes Maj Diego Osullivan, BSBeba, PA-C [facility] ([facility]) [place] Please note that this dictation was completed with computer voice recognition software, Muzy. Quite often unanticipated grammatical, syntax, homophones, and other interpretive errors are inadvertently transcribed by the computer software. Please disregard these errors and excuse any errors that have escaped final proofreading. If are any questions regarding documentation, please contact this provider directly. Extracted from:Title: Right ganglion cyst Author: SADI SAUL DO Date: 09/28/24 Ganglion cyst Patient p resented to [facility] for US-guided aspiration of cyst on volar aspect of wrist. Previous US demonstrated transilluminating, multiloculated 1.2 x 1.5 x 0.6 cm c yst located adjacent to vessels. Discussed with patient given multiloculated nature of cyst, conservative management with aspiration will likely be ineffective in preventing recurrence. Additionally, discussed other complications of procedure including proximity to vessels and risk of infection. After risks and benefits discussion, patient elected to pursue further treatment with hand surgeon. 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 I have reviewed the note and agree with the findings, assessment, and plan except as I have documented below. Follow up as listed. All labs/imaging/consults to be followed by the ordering provider. Corry Hussein DO, , [facility], Staff Physician Extracted from:Title: [facility] - Virtual MHA/PHA Author: MC NEAL MD Date: 09/21/24 1. 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 IMR Status: R ED D ental Class 3 , s cheduled October 31. ? 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 [id number] HIV, UTD. Reviewed valet service attendant's completed PHA record review and IMR status. MHA completed and copied to this record. 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 Preventative services not reviewed as part of PHA process, readiness review only, PHA d oes not take the place of routine wellness or PCM visit. Reviewed readiness immunizations s tatus. Reviewed readiness lab. Reviewed o ccupational health examinations status, member to schedule any overdue items with the [facility], member not contacted. Any non-readiness medical concerns to be addressed with PCM. Medication list reviewed for any unaddressed retention limiting conditions o r concerns; however member not contacted a nd interviewed a t time of visit. A or recent medication changes and/or concerns will n eed to be addressed by PCM team. [facility] 0[facility]. PHA completed and ASIMS updated. Any retention a nd/or readiness issues identified while conducting the PHA have been communicated to PCM via Mary Lou. produce production team member to follow up with [facility] PCM for all other c oncerns. //SIGNED// MC NEAL, Lt Johnson, CHARLIE, ROD, FS Family Physician/Flight Surgeon [address] [facility] Clinic [employer] (P) 2. A nxiety M ember with anxiety/depression, did review available resources with member and reviewed counseling on psychiatric medications f rom last Apr-Jun 2023 prior to my going on 6 month TDY from October to April, a nd member being lost to care after l ast follow up with [facility] -did let member know he will need to follow up with his PCM if interested in starting psychiatric medications or referral for therapy -f/u with PCM and MH as needed NATALEE [id number] Extracted from:Title: [facility] Back pain Author: BHARATHI HERNANDEZ PA Date: 09/14/24 1. T horacic back pain 38 Years o ld M c /o u pper back pain x 2 m onths. Denies injury. D enies r adiation. Endorses occipital HAs. PE u nremarkable. Suspect tightness of t rapezius. - Advised to avoid aggravating activities - Recommended gentle exercise/stretching and heat t herapy - N SAIDs prn. Risks discussed with prolonged use - Flexeril 10mg. Discussed SE - P T referral placed - F /u p rn. Will consider imaging, BFA, Pain Management, and/or Neurosurgery consult? Ordered: cyclobenzaprine(cyclobenzaprine 10 mg oral tablet), 1 tab(s), Oral, TID, PRN spasm, Use on PRN basis for severe pain. Limit use to one tablet every 8 hours, X 30 days, # 30 tab(s), 0 total refill(s), Acute, Pharmacy: [facility] [Not filled] Referral Request 2.0 - [facility] 2. L ow back pain Pt reports chronic LBP. Endorses improvement with PT and would like another referral. Denies saddle anesthesia. Denies bowel and bladder incontinence. PE u nremarkable.? No foot drop. No midline tenderness. Neurovascularly intact. - Advised to avoid a ggravating activities - Recommended gentle exercise/stretching and heat therapy - NSAIDs prn. Risks discussed with prolonged use - Lidoderm patches prn - PT referral placed - F/u prn. Will consider imaging, Ortho vs Pain Management c onsult if no improvement Ordered: cyclobenzaprine(cyclobenzaprine 10 mg oral tablet), 1 tab(s), Oral, TID, PRN spasm, Use on PRN basis for severe pain. Limit use to one tablet every 8 hours, X 30 days, # 30 tab(s), 0 total refill(s), Acute, Pharmacy: [facility] [Not filled] Referral Request 2.0 - [facility] Medications reconciled. Pt verbalized understanding and agreement. BHARATHI HERNANDEZ, 1st Lt, PA-C [facility] [place] [address] Extracted from:Title: [facility] - mass of R wrist Author: LORI ANTOINE MD Date: 07/26/24 1. M ass of wrist Chronic, 6 mths. P ain w/ certain activities. No red flags on exam. Suspect ganglion cyst most likely v lipoma. - US for further characterization - If cystic, will refer to [facility] proc clinic for tx - If lipomatous, will refer to hand surgeon - Advised against trauma to tx (hitting w/ a bible or heavy book) - F/u pending US results, will contact pt once results Ordered: US Superficial Extremity Lori Antoine MD, RENETTA, MPH PGY-3, Family Medicine CHARLIE Young, [place] Extracted from:Title: [facility] URI Author: JOE KATZ DO Date: 07/25/24 URI - Upper respiratory infection Time course and symptoms consistent with viral etiology. Afebrile, no significant respiratory symptoms to suggest influenza. No respiratory distress, evidence of moderate to severe range dehydration, or acutely concerning vital signs. Benign exam without focal findings to suggest bacterial etiology of PNA or sinusitis. Will treat symptomatically - Tylenol/motrin prn for pain, discomfort and fever - Encouraged maintaining hydration and rest - Tea, honey and salt water gargles for sore throat and cough - Guaifenesin/pseudoephedrine f or cough and congestion - Benzocaine lozenges for sore throat - Saline sinus rinses recommended for rhinosinusitis symptoms, instructions for use provided - Pt. to follow up for worsening symptoms in 3-5 days or persistence in one week - RTC for respiratory distress or inability to hydrate per our discussion - Pt told to expect cough to resolve slowly over next several weeks up to 2 months - 24 hours of quarters placed f/u in 2 days if symptoms worsen or still feel too sick to return to work. Capt Aguilar DO, [employer] Family Physician [facility] Medicine Residency Program in [place], [place] [address] [address] Extracted from:Title: [facility] - Low back/hip pain Author: OSMAR PEREZ DO Date: 05/12/24 1. L ow back pain Chronic. Stable. Suspect 2/2 degenerative forces, no recent injury or trauma. Will refer to PT for further evaluation and management. Will obtain radiographs to r/o bony abnormalities. Ordered: Referral Request 2.0 - DoD 2. R ight hip pain New finding. Acute, uncontrolled. Low suspicion for fracture with no history of trauma. Low suspicion for dangerous medical conditions including bone tumor, septic arthritis, osteonecrosis, or aortoiliac arterial insufficiency. No other joint pain to suggest rheumatoid arthritis. Plan: - Referrals: PT referral with emphasis on strengthening muscles stabilizing the scapula followed by correcting imbalances in rotator cuff muscles, then improving overall shoulder strength and coordination - XR to r/o bony abnormalities, consider referral to sports medicine if symptoms persist. Ordered: Referral Request 2.0 - DoD Orders: XR Hip w/ Pelvis 2 or 3 Views Right XR Spine Lumbosacral 4+ Views The patient (is ) World Wide Qualified. 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 Visit deployment related: N o Profile Reviewed MEB in progress: No IMR/ASIMS Status: [_] Green (no action), Member aware. [_] Yellow (Action: Member is currently due for _, notified to take action) [X] RED (Action: Member is currently OVERDUE for PHA and HIV, notified to take action/or addressed overdue items) Osmar Perez DO, Sergio, [facility], Auto Tune Up Mechanic [address], [place] Extracted from:Title: [facility] - LBP Author: TRI WOOD Date: 11/22/23 D iagnosis: 1 . L umbar spondylosis Comment: C hiropractic Diversified Adjustments Prone T/S S enrico posture to Ilium, SI and L/S A T Performed attended, prone, Carey Flexion/Distraction (12min) to L/S - 59 Bugs: b ack into the table. Once able to breath while bracing core in this position, begin to progress exercise. 1. Extend one arm at a time overhead until just above the table, then alternate 2. E xtend o ne leg at a time until just above the table, then alternate 3. Extend one arm and opposite leg at the same time, then alternate Patient was shown and demonstrated understanding. Perform 3 sets of 10 reps. ( 10min) Hip Mobility 90/90 Stretches: The patient is s eated on the floor with both knees flexed to 90*, one pointing forward and one pointing out laterally, with the pelvis facing forward. The patient was instructed to sit up tall and push knees into the ground for 30 seconds and then to rotate, pivoting on the heels, to the other side. T he patient was instructed t o perform 3 sets of 30 seconds bilaterally, twice daily. (10min) Pin and stretch p erformed to: i liolumbar ligament l cait dorsal s acral ligament? O rdered: Ther Px 1/> Areas Each 15 Minutes Massage [id number]; 11/22/2023 14:31:00 CDT, 10 b ENRIKE Burgos DC ? Therapeutic Px 1/> Areas Each 15 Min Exercises [id number]; 11/22/2023 14:31:00 CDT, 10 ? [id number] - Clinic New Level 3; 11/22/2023 14:31:00 CDT, 25 ? Manual Therapy Tqs 1/> Regions Each 15 Minutes [id number]; 11/22/2023 14:31:00 CDT, 59 ? Chiropractic Manipulative Tx Spinal 1-2 Regions [id number]; 11/22/2023 14:31:00 CDT, AT D iagnosis: 2 . S acroiliac joint somatic dysfunction Comment: C hiropractic Diversified Adjustments Prone T/S S enrico posture to Ilium, SI and L/S A T Ordered: [id number] - Clinic New Level 3; 11/22/2023 14:31:00 CDT, 25 b y ENRIKE VILLASENOR DC ? Chiropractic Manipulative Tx Spinal 1-2 Regions [id number]; 11/22/2023 14:31:00 CDT, AT D iagnosis: 3 . T horacic segmental dysfunction Comment: C hiropractic Diversified Adjustments Prone T/S S enrico posture to Ilium, SI and L/S A T Ordered: [id number] - Clinic New Level 3; 11/22/2023 14:31:00 CDT, 25 b y ENRIKE VILLASENOR DC ? Chiropractic Manipulative Tx Spinal 1-2 Regions [id number]; 11/22/2023 14:31:00 CDT, AT D iagnosis: 4 . L umbar segmental dysfunction Comment: C hiropractic Diversified Adjustments Prone T/S S enrico posture to Ilium, SI and L/S A T Ordered: [id number] - Clinic New Level 3; 11/22/2023 14:31:00 CDT, 25 b y ENRIKE VILLASENOR DC ? Chiropractic Manipulative Tx Spinal 1-2 Regions [id number]; 11/22/2023 14:31:00 CDT, AT Diagnosis of S pondylosis, Lumbar Region M47.896 S acroiliac joint d ysfunction ? is consistent with clinical findings of b iomechanical low back pain.SIJ dysfunction. & #160;loss of segmental ROM. positive orthopedic exam. Patient prognosis is g omeghan b ased on patient's i nitial positive response to treatment, reported decreased pain and increase in range of motion s/p treatment. Patient advised of the nature of chiropractic examination and treatment, the risks and benefits of chiropractic versus other procedures for t his condition, relative chance of each occurrence, exacerbation of current clinical s/sx, and alternative options including no treatment. Verbal informed consent was given by the patient to proceed with evaluation and treatment. Patient may expect total relief from pain, temporary relief from pain, increased pain, residual muscle soreness after the initial treatment which should resolve within a few days. If pain becomes intolerable patient to contact this clinic directly for acute care appointment and/or referral instruction. Advised patient consent may be revoked by them at any time. Pt verbalized understanding of informed consent and verbalized consent to examination and treatment today. Pt directs consent to be valid for all treatments rendered in this clinic. T joanne for patient questions was allotted and all questions were answered. Ileana Ricardo [facility] xtern, assisted Dheeraj Villasenor w [facility] patient care. //SIGNED// Dr. Enrike Villasenor DC, RMSK Chiropractic Physician [address] [employer] [facility] DSN/Comm: [phone] / [phone] 11/22/23 15:19:08 Extracted from:Title: Ambulatory Patient Education Author: BEULAH MCMULLEN MD Date: 08/05/21 Patient Education Materials Follows: Thyroid Nodule A thyroid nodule is an isolated growth of thyroid cells that forms a lump in your thyroid gland. The thyroid gland is a butterfly-shaped gland. It is found in the lower front of your neck. This gland sends chemical messengers (hormones) through your blood to all parts of your body. These hormones are important in regulating your body temperature and helping your body to use energy. Thyroid nodules are common. Most are not cancerous (benign). You may have one nodule or several nodules. Different types of thyroid nodules include nodules that: Grow and fill with fluid (thyroid cysts). Produce too much thyroid hormone (hot nodules or hyperthyroid). Produce no thyroid hormone (cold nodules or hypothyroid). Form from cancer cells (thyroid cancers). What are the causes? In most cases, the cause of this condition is not known. What increases the risk? The following factors may make you more likely to develop this condition. Age. Thyroid nodules become more common in people who are older than 45 years of age. Gender. Benign thyroid nodules are more common in women. Cancerous (malignant) thyroid nodules are more common in men. A family history that includes: Thyroid nodules. Pheochromocytoma. Thyroid carcinoma. Hyperparathyroidism. Certain kinds of thyroid diseases, such as Darline's thyroiditis. Lack of iodine in your diet. A history of head and neck radiation, such as from previous cancer treatment. What are the signs or symptoms? In many cases, there are no symptoms. If you have symptoms, they may include: A lump in your lower neck. Feeling a lump or tickle in your throat. Pain in your neck, jaw, or ear. Having trouble swallowing. Hot nodules may cause symptoms that include: Weight loss. Warm, flushed skin. Feeling hot. Feeling nervous. A racing heartbeat. Cold nodules may cause symptoms that include: Weight gain. Dry skin. Brittle hair. This may also occur with hair loss. Feeling cold. Fatigue. Thyroid cancer nodules may cause symptoms that include: Hard nodules that feel stuck to the thyroid gland. Hoarseness. Lumps in the glands near your thyroid (lymph nodes). How is this diagnosed? A thyroid nodule may be felt by your health care provider during a physical exam. This condition may also be diagnosed based on your symptoms. You may also have tests, including: An ultrasound. This may be done to confirm the diagnosis. A biopsy. This involves taking a sample from the nodule and looking at it under a microscope. Blood tests to make sure that your thyroid is working properly. A thyroid scan. This test uses a radioactive tracer injected into a vein to create an image of the thyroid gland on a computer screen. Imaging tests such as MRI or CT scan. These may be done if: Your nodule is large. Your nodule is blocking your airway. Cancer is suspected. How is this treated? Treatment depends on the cause and size of your nodule or nodules. If the nodule is benign, treatment may not be necessary. Your health care provider may monitor the nodule to see if it goes away without treatment. If the nodule continues to grow, is cancerous, or does not go away, treatment may be needed. Treatment may include: Having a cystic nodule drained with a needle. Ablation therapy. In this treatment, alcohol is injected into the area of the nodule to destroy the cells. Ablation with heat (thermal ablation) may also be used. Radioactive iodine. In this treatment, radioactive iodine is given as a pill or liquid that you drink. This substance causes the thyroid nodule to shrink. Surgery to remove the nodule. Part or all of your thyroid gland may need to be removed as well. Medicines. Follow these instructions at home: Pay attention to any changes in your nodule. Take [id number] and prescription medicines only as told by your health care provider. Keep all follow-up visits as told by your health care provider. This is important. Contact a health care provider if: Your voice changes. You have trouble swallowing. You have pain in your neck, ear, or jaw that is getting worse. Your nodule gets bigger. Your nodule starts to make it harder for you to breathe. Your muscles look like they are shrinking (muscle wasting). Get help right away if: You have chest pain. There is a loss of consciousness. You have a sudden fever. You feel confused. You are seeing or hearing things that other people do not see or hear (having hallucinations). You feel very weak. You have mood swings. You feel very restless. You feel suddenly nauseous or throw up. You suddenly have diarrhea. Summary A thyroid nodule is an isolated growth of thyroid cells that forms a lump in your thyroid gland. Thyroid nodules are common. Most are not cancerous (benign). You may have one nodule or several nodules. Treatment depends on the cause and size of your nodule or nodules. If the nodule is benign, treatment may not be necessary. Your health care provider may monitor the nodule to see if it goes away without treatment. If the nodule continues to grow, is cancerous, or does not go away, treatment may be needed. This information is not intended to replace advice given to you by your health care provider. Make sure you discuss any questions you have with your health care provider. Document Released: 07/09/2005 Document Revised: 04/03/2019 Document Reviewed: 04/03/2019 Blockchain Interactive Patient Education 2019 ExoYou. Future Scheduled TestsLaboratoryMicroalbumin Panel, Urine 11/02/24Basic Metabolic Panel 11/02/24 01/03/2025 [id number] [facility] and Plan Extracted from:Title : [facility] LBP Author: CESIA OSULLIVAN PA Date: 12/26/24 1. L ow back pain 39 y/o ADAF male with acute on chronic low back pain w radiculopathy sxs. N o red flag sxs or exam findings. S uspect s pasm Recommend F itness restrictions at this time. Place on 72 hour quarters. Complete plain films. - Continue R obaxin a nd P rednisone as p reviously p rescribed for pain - D iscussed ER precautions - F/u PRN Ordered: XR Spine Lumbosacral 2 or 3 Views The patient (is) World Wide Qualified. 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 ([facility]) [place] Please note that this dictation was completed with computer voice recognition software, Muzy. Quite often unanticipated grammatical, syntax, homophones, and other interpretive errors are inadvertently transcribed by the computer software. Please disregard these errors and excuse any errors that have escaped final proofreading. If are any questions regarding documentation, please contact this provider directly. Extracted from:Title: [facility] Anxiety Author: CESIA OSULLIVAN PA Date: 12/19/24 1. A nxiety VIRTUAL APPT 39 y/o ADAF male with improving d epression/anxiety. R eviewed PHQ-9, ELISABETH-7. D oes not appear to be increased safety risk. Continue Zoloft 100 mg once daily dosing, given fatigue and sexual side effects began Wellbutrin 150 mg once daily dosing. - Discussed can take 4-6 weeks to see improvement - Reviewed MH tx o ptions - Seek emergent care for any HI/SI - F/u in 6-8 weeks. Ordered: buPROPion(Wellbutrin XL 150 mg/24 hours oral tablet, extended release), 1 tab(s), Oral, every 24 hr, # 60 tab(s), 0 total refill(s), Maintenance, Pharmacy: [facility] #[id number] [External Rx] sertraline(Zoloft 100 mg oral tablet), 1 tab(s), Oral, Daily, # 60 tab(s), 0 total refill(s), Maintenance, Pharmacy: [facility] #[id number] [External Rx] The patient (is) World Wide Qualified. AM Dispo: Non-Fly Cleared for AFSC/MOS Duties: Y es Cleared for continued service: Yes Cleared for mobility duties: Yes Cleared for participation in physical fitness program: Yes Maj Diego Osullivan, BSBeba, PAChristianoC [facility] ([facility]) [place] Please note that this dictation was completed with computer voice recognition software, Muzy. Quite often unanticipated grammatical, syntax, homophones, and other interpretive errors are inadvertently transcribed by the computer software. Please disregard these errors and excuse any errors that have escaped final proofreading. If are any questions regarding documentation, please contact this provider directly. Extracted from:Title: [facility] Anxiety Author: CESIA OSULLIVAN PA Date: 11/02/24 1. A nxiety 39 y /o ADCG m tom with worsening depression/anxiety. R eviewed PHQ-9, ELISABETH-7. D oes not appear to be increased safety risk. R ecommend starting on daily Zoloft 50 mg x 1 week, then increasing to 100 mg once daily. - Discussed can take 4-6 to see improvement with SSRIs - Reviewed MH tx o ptions - Seek emergent care for any HI/SI - F/u in 4-6 w eeks. Ordered: sertraline(sertraline 50 mg oral tablet), See Instructions, Take one tablet by mouth every day for 7 days, then take two tablets by mouth every day thereafter, # 77 tab(s), 0 total refill(s), Maintenance, 42 days, Pharmacy: [facility] #[id number] [External Rx] 2. E ssential hypertension Est d x. Home BP at goal range. P er JNC 8 BP Goal < 140/90. Asymptomatic. Complete screening labs. Continue Lisinopril 10 mg once daily dosing - Reviewed diet/exercise, impact of weight loss - Discussed DASH diet - Limit ETOH intake - Continue h ome BP monitoring - F/u in 30 days to re-evaluate BP and titrate medication Ordered: lisinopril(lisinopril 10 mg oral tablet), 1 tab(s), Oral, Daily, for blood pressure, # 90 tab(s), 3 total refill(s), Maintenance, Pharmacy: [facility] #[id number] [External Rx] Basic Metabolic Panel Microalbumin Panel, Urine The patient (is) World Wide Qualified. AM Dispo: Non-Fly Cleared for AFSC/MOS Duties: Y es Cleared for continued service: Yes Cleared for mobility duties: Yes Cleared for participation in physical fitness program: Yes Maj Diego Osullivan, BSC, PA-C [facility] ([facility]) [place] Please note that this dictation was completed with computer voice recognition software, Muzy. Quite often unanticipated grammatical, syntax, homophones, and other interpretive errors are inadvertently transcribed by the computer software. Please disregard these errors and excuse any errors that have escaped final proofreading. If are any questions regarding documentation, please contact this provider directly. Extracted from:Title: Right ganglion cyst Author: SADI SAUL DO Date: 09/28/24 Ganglion cyst Patient p resented to [facility] for US-guided aspiration of cyst on volar aspect of wrist. Previous US demonstrated transilluminating, multiloculated 1.2 x 1.5 x 0.6 cm c yst located adjacent to vessels. Discussed with patient given multiloculated nature of cyst, conservative management with aspiration will likely be ineffective in preventing recurrence. Additionally, discussed other complications of procedure including proximity to vessels and risk of infection. After risks and benefits discussion, patient elected to pursue further treatment with hand surgeon. 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 I have reviewed the note and agree with the findings, assessment, and plan except as I have documented below. Follow up as listed. All labs/imaging/consults to be followed by the ordering provider. Capt Badillo DO, USAF, Staff Physician Extracted from:Title: [facility] - Virtual MHA/PHA Author: MC NEAL MD Date: 09/21/24 1. 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 IMR Status: R ED D ental Class 3 , s cheduled October 31. ? 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 [id number] HIV, UTD. Reviewed valet service attendant's completed PHA record review and IMR status. MHA completed and copied to this record. 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 Preventative services not reviewed as part of PHA process, readiness review only, PHA d oes not take the place of routine wellness or PCM visit. Reviewed readiness immunizations s tatus. Reviewed readiness lab. Reviewed o ccupational health examinations status, member to schedule any overdue items with the [facility], member not contacted. Any non-readiness medical concerns to be addressed with PCM. Medication list reviewed for any unaddressed retention limiting conditions o r concerns; however member not contacted a nd interviewed a t time of visit. A or recent medication changes and/or concerns will n eed to be addressed by PCM team. [facility] 0[facility]. PHA completed and ASIMS updated. Any retention a nd/or readiness issues identified while conducting the PHA have been communicated to PCM via Mary Lou. produce production team member to follow up with [place] PCM for all other c oncerns. //SIGNED// MC NEAL, Lt Johnson, USAF, MC, FS Family Physician/Flight Surgeon [address] [facility] Clinic [place] (P) 2. A nxiety M ember with anxiety/depression, did review available resources with member and reviewed counseling on psychiatric medications f rom last Apr-Jun 2023 prior to my going on 6 month TDY from October to April, a nd member being lost to care after l ast follow up with Terrell Gerardo eb -did let member know he will need to follow up with his PCM if interested in starting psychiatric medications or referral for therapy -f/u with PCM and MH as needed NATALEE [id number] Extracted from:Title: [facility] Back pain Author: BHARATHI HERNANDEZ PA Date: 09/14/24 1. T horacic back pain 38 Years o ld M c /o u pper back pain x 2 m onths. Denies injury. D enies r adiation. Endorses occipital HAs. PE u nremarkable. Suspect tightness of t rapezius. - Advised to avoid aggravating activities - Recommended gentle exercise/stretching and heat t herapy - N SAIDs prn. Risks discussed with prolonged use - Flexeril 10mg. Discussed SE - P T referral placed - F /u p rn. Will consider imaging, BFA, Pain Management, and/or Neurosurgery consult? Ordered: cyclobenzaprine(cyclobenzaprine 10 mg oral tablet), 1 tab(s), Oral, TID, PRN spasm, Use on PRN basis for severe pain. Limit use to one tablet every 8 hours, X 30 days, # 30 tab(s), 0 total refill(s), Acute, Pharmacy: [facility] [Not filled] Referral Request 2.0 - [facility] 2. L ow back pain Pt reports chronic LBP. Endorses improvement with PT and would like another referral. Denies saddle anesthesia. Denies bowel and bladder incontinence. PE u nremarkable.? No foot drop. No midline tenderness. Neurovascularly intact. - Advised to avoid a ggravating activities - Recommended gentle exercise/stretching and heat therapy - NSAIDs prn. Risks discussed with prolonged use - Lidoderm patches prn - PT referral placed - F/u prn. Will consider imaging, Ortho vs Pain Management c onsult if no improvement Ordered: cyclobenzaprine(cyclobenzaprine 10 mg oral tablet), 1 tab(s), Oral, TID, PRN spasm, Use on PRN basis for severe pain. Limit use to one tablet every 8 hours, X 30 days, # 30 tab(s), 0 total refill(s), Acute, Pharmacy: [facility] [Not filled] Referral Request 2.0 - [facility] Medications reconciled. Pt verbalized understanding and agreement. BHARATHI HERNANDEZ, 1st Lt, PAShahbaz [facility] [place] [address] Extracted from:Title: [facility] - mass of R wrist Author: LORI ANTOINE MD Date: 07/26/24 1. M ass of wrist Chronic, 6 mths. P ain w/ certain activities. No red flags on exam. Suspect ganglion cyst most likely v lipoma. - US for further characterization - If cystic, will refer to [facility] proc clinic for tx - If lipomatous, will refer to hand surgeon - Advised against trauma to tx (hitting w/ a bible or heavy book) - F/u pending US results, will contact pt once results Ordered: US Superficial Extremity Lori Antoine MD, RENETTA, MPH PGY-3, Family Medicine Captain, [facility], [place], [place] Extracted from:Title: [facility] URI Author: JOE KATZ DO Date: 07/25/24 URI - Upper respiratory infection Time course and symptoms consistent with viral etiology. Afebrile, no significant respiratory symptoms to suggest influenza. No respiratory distress, evidence of moderate to severe range dehydration, or acutely concerning vital signs. Benign exam without focal findings to suggest bacterial etiology of PNA or sinusitis. Will treat symptomatically - Tylenol/motrin prn for pain, discomfort and fever - Encouraged maintaining hydration and rest - Tea, honey and salt water gargles for sore throat and cough - Guaifenesin/pseudoephedrine f or cough and congestion - Benzocaine lozenges for sore throat - Saline sinus rinses recommended for rhinosinusitis symptoms, instructions for use provided - Pt. to follow up for worsening symptoms in 3-5 days or persistence in one week - RTC for respiratory distress or inability to hydrate per our discussion - Pt told to expect cough to resolve slowly over next several weeks up to 2 months - 24 hours of quarters placed f/u in 2 days if symptoms worsen or still feel too sick to return to work. Joe Katz DO, , BRUNA, Family Physician [facility] in [place], [place] [address] [address] Extracted from:Title: [facility] - Low back/hip pain Author: OSMAR PEREZ DO Date: 05/12/24 1. L ow back pain Chronic. Stable. Suspect 2/2 degenerative forces, no recent injury or trauma. Will refer to PT for further evaluation and management. Will obtain radiographs to r/o bony abnormalities. Ordered: Referral Request 2.0 - DoD 2. R ight hip pain New finding. Acute, uncontrolled. Low suspicion for fracture with no history of trauma. Low suspicion for dangerous medical conditions including bone tumor, septic arthritis, osteonecrosis, or aortoiliac arterial insufficiency. No other joint pain to suggest rheumatoid arthritis. Plan: - Referrals: PT referral with emphasis on strengthening muscles stabilizing the scapula followed by correcting imbalances in rotator cuff muscles, then improving overall shoulder strength and coordination - XR to r/o bony abnormalities, consider referral to sports medicine if symptoms persist. Ordered: Referral Request 2.0 - DoD Orders: XR Hip w/ Pelvis 2 or 3 Views Right XR Spine Lumbosacral 4+ Views The patient (is ) World Wide Qualified. 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 Visit deployment related: N o Profile Reviewed MEB in progress: No IMR/ASIMS Status: [_] Green (no action), Member aware. [_] Yellow (Action: Member is currently due for _, notified to take action) [X] RED (Action: Member is currently OVERDUE for PHA and HIV, notified to take action/or addressed overdue items) Osmar Perez DO, Sergio, [employer], Auto Tune Up Mechanic [address], [place] Extracted from:Title: [facility] - LBP Author: TRI WOOD Date: 11/22/23 D iagnosis: 1 . L umbar spondylosis Comment: C hiropractic Diversified Adjustments Prone T/S S enrico posture to Ilium, SI and L/S A T Performed attended, prone, Carey Flexion/Distraction (12min) to L/S - 59 Bugs: b ack into the table. Once able to breath while bracing core in this position, begin to progress exercise. 1. Extend one arm at a time overhead until just above the table, then alternate 2. E xtend o ne leg at a time until just above the table, then alternate 3. Extend one arm and opposite leg at the same time, then alternate Patient was shown and demonstrated understanding. Perform 3 sets of 10 reps. ( 10min) Hip Mobility 90/90 Stretches: The patient is s eated on the floor with both knees flexed to 90*, one pointing forward and one pointing out laterally, with the pelvis facing forward. The patient was instructed to sit up tall and push knees into the ground for 30 seconds and then to rotate, pivoting on the heels, to the other side. T he patient was instructed t o perform 3 sets of 30 seconds bilaterally, twice daily. (10min) Pin and stretch p erformed to: i liolumbar ligament l cait dorsal s acral ligament? O rdered: Ther Px 1/> Areas Each 15 Minutes Massage [id number]; 11/22/2023 14:31:00 CDT, 10 b y ENRIKE VILLASENOR DC ? Therapeutic Px 1/> Areas Each 15 Min Exercises [id number]; 11/22/2023 14:31:00 CDT, 10 ? [facility] New Level 3; 11/22/2023 14:31:00 CDT, 25 ? Manual Therapy Tqs 1/> Regions Each 15 Minutes [id number]; 11/22/2023 14:31:00 CDT, 59 ? Chiropractic Manipulative Tx Spinal 1-2 Regions [id number]; 11/22/2023 14:31:00 CDT, AT D iagnosis: 2 . S acroiliac joint somatic dysfunction Comment: C hiropractic Diversified Adjustments Prone T/S S enrico posture to Ilium, SI and L/S A T Ordered: [address] [place] [address] New Level 3; 11/22/2023 14:31:00 CDT, 25 b y ENRIKE VILLASENOR DC ? Chiropractic Manipulative Tx Spinal 1-2 Regions [id number]; 11/22/2023 14:31:00 CDT, AT D iagnosis: 3 . T horacic segmental dysfunction Comment: C hiropractic Diversified Adjustments Prone T/S S enrico posture to Ilium, SI and L/S A T Ordered: [address] [place] [address] New Level 3; 11/22/2023 14:31:00 CDT, 25 b y ENRIKE VILALSENOR DC ? Chiropractic Manipulative Tx Spinal 1-2 Regions [id number]; 11/22/2023 14:31:00 CDT, AT D iagnosis: 4 . L umbar segmental dysfunction Comment: C hiropractic Diversified Adjustments Prone T/S S enrico posture to Ilium, SI and L/S A T Ordered: [address] [place] [address] New Level 3; 11/22/2023 14:31:00 CDT, 25 b y ENRIKE VILLASENOR DC ? Chiropractic Manipulative Tx Spinal 1-2 Regions [id number]; 11/22/2023 14:31:00 CDT, AT Diagnosis of S pondylosis, Lumbar Region M47.896 S acroiliac joint d ysfunction ? is consistent with clinical findings of b iomechanical low back pain.SIJ dysfunction. & #160;loss of segmental ROM. positive orthopedic exam. Patient prognosis is g ood b ased on patient's i nitial positive response to treatment, reported decreased pain and increase in range of motion s/p treatment. Patient advised of the nature of chiropractic examination and treatment, the risks and benefits of chiropractic versus other procedures for t his condition, relative chance of each occurrence, exacerbation of current clinical s/sx, and alternative options including no treatment. Verbal informed consent was given by the patient to proceed with evaluation and treatment. Patient may expect total relief from pain, temporary relief from pain, increased pain, residual muscle soreness after the initial treatment which should resolve within a few days. If pain becomes intolerable patient to contact this clinic directly for acute care appointment and/or referral instruction. Advised patient consent may be revoked by them at any time. Pt verbalized understanding of informed consent and verbalized consent to examination and treatment today. Pt directs consent to be valid for all treatments rendered in this clinic. T joanne for patient questions was allotted and all questions were answered. Ileana Ricardo [facility] [place] xtern, assisted Dheeraj Villasenor w [facility] patient care. //SIGNED// Dr. Enrike Villasenor DC, RMSK Chiropractic Physician [address] [facility] [place] [facility] Main Line DSN/Comm: [phone] / [phone] 11/22/23 15:19:08 Extracted from:Title: Ambulatory Patient Education Author: BEULAH MCMULLEN MD Date: 08/05/21 Patient Education Materials Follows: Thyroid Nodule A thyroid nodule is an isolated growth of thyroid cells that forms a lump in your thyroid gland. The thyroid gland is a butterfly-shaped gland. It is found in the lower front of your neck. This gland sends chemical messengers (hormones) through your blood to all parts of your body. These hormones are important in regulating your body temperature and helping your body to use energy. Thyroid nodules are common. Most are not cancerous (benign). You may have one nodule or several nodules. Different types of thyroid nodules include nodules that: Grow and fill with fluid (thyroid cysts). Produce too much thyroid hormone (hot nodules or hyperthyroid). Produce no thyroid hormone (cold nodules or hypothyroid). Form from cancer cells (thyroid cancers). What are the causes? In most cases, the cause of this condition is not known. What increases the risk? The following factors may make you more likely to develop this condition. Age. Thyroid nodules become more common in people who are older than 45 years of age. Gender. Benign thyroid nodules are more common in women. Cancerous (malignant) thyroid nodules are more common in men. A family history that includes: Thyroid nodules. Pheochromocytoma. Thyroid carcinoma. Hyperparathyroidism. Certain kinds of thyroid diseases, such as Darline's thyroiditis. Lack of iodine in your diet. A history of head and neck radiation, such as from previous cancer treatment. What are the signs or symptoms? In many cases, there are no symptoms. If you have symptoms, they may include: A lump in your lower neck. Feeling a lump or tickle in your throat. Pain in your neck, jaw, or ear. Having trouble swallowing. Hot nodules may cause symptoms that include: Weight loss. Warm, flushed skin. Feeling hot. Feeling nervous. A racing heartbeat. Cold nodules may cause symptoms that include: Weight gain. Dry skin. Brittle hair. This may also occur with hair loss. Feeling cold. Fatigue. Thyroid cancer nodules may cause symptoms that include: Hard nodules that feel stuck to the thyroid gland. Hoarseness. Lumps in the glands near your thyroid (lymph nodes). How is this diagnosed? A thyroid nodule may be felt by your health care provider during a physical exam. This condition may also be diagnosed based on your symptoms. You may also have tests, including: An ultrasound. This may be done to confirm the diagnosis. A biopsy. This involves taking a sample from the nodule and looking at it under a microscope. Blood tests to make sure that your thyroid is working properly. A thyroid scan. This test uses a radioactive tracer injected into a vein to create an image of the thyroid gland on a computer screen. Imaging tests such as MRI or CT scan. These may be done if: Your nodule is large. Your nodule is blocking your airway. Cancer is suspected. How is this treated? Treatment depends on the cause and size of your nodule or nodules. If the nodule is benign, treatment may not be necessary. Your health care provider may monitor the nodule to see if it goes away without treatment. If the nodule continues to grow, is cancerous, or does not go away, treatment may be needed. Treatment may include: Having a cystic nodule drained with a needle. Ablation therapy. In this treatment, alcohol is injected into the area of the nodule to destroy the cells. Ablation with heat (thermal ablation) may also be used. Radioactive iodine. In this treatment, radioactive iodine is given as a pill or liquid that you drink. This substance causes the thyroid nodule to shrink. Surgery to remove the nodule. Part or all of your thyroid gland may need to be removed as well. Medicines. Follow these instructions at home: Pay attention to any changes in your nodule. Take njub-mbg-sdttzhk and prescription medicines only as told by your health care provider. Keep all follow-up visits as told by your health care provider. This is important. Contact a health care provider if: Your voice changes. You have trouble swallowing. You have pain in your neck, ear, or jaw that is getting worse. Your nodule gets bigger. Your nodule starts to make it harder for you to breathe. Your muscles look like they are shrinking (muscle wasting). Get help right away if: You have chest pain. There is a loss of consciousness. You have a sudden fever. You feel confused. You are seeing or hearing things that other people do not see or hear (having hallucinations). You feel very weak. You have mood swings. You feel very restless. You feel suddenly nauseous or throw up. You suddenly have diarrhea. Summary A thyroid nodule is an isolated growth of thyroid cells that forms a lump in your thyroid gland. Thyroid nodules are common. Most are not cancerous (benign). You may have one nodule or several nodules. Treatment depends on the cause and size of your nodule or nodules. If the nodule is benign, treatment may not be necessary. Your health care provider may monitor the nodule to see if it goes away without treatment. If the nodule continues to grow, is cancerous, or does not go away, treatment may be needed. This information is not intended to replace advice given to you by your health care provider. Make sure you discuss any questions you have with your health care provider. Document Released: 07/09/2005 Document Revised: 04/03/2019 Document Reviewed: 04/03/2019 [employer] Interactive Patient Education 2019 [employer] Future Scheduled TestsLaboratoryMicroalbumin Panel, Urine 11/02/24Basic Metabolic Panel 11/02/24 01/03/2025 [id number] [facility] Assessment and Plan Extracted from:Title : [facility] LBP Author: CESIA OSULLIVAN PA Date: 12/26/24 1. L ow back pain 39 y/o ADAF male with acute on chronic low back pain w radiculopathy sxs. N o red flag sxs or exam findings. S uspect s pasm Recommend F itness restrictions at this time. Place on 72 hour quarters. Complete plain films. - Continue R obaxin a nd P rednisone as p reviously p rescribed for pain - D iscussed ER precautions - F/u PRN Ordered: XR Spine Lumbosacral 2 or 3 Views The patient (is) World Wide Qualified. 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 ([facility]) [place] Please note that this dictation was completed with computer voice recognition software, Muzy. Quite often unanticipated grammatical, syntax, homophones, and other interpretive errors are inadvertently transcribed by the computer software. Please disregard these errors and excuse any errors that have escaped final proofreading. If are any questions regarding documentation, please contact this provider directly. Extracted from:Title: [facility] Anxiety Author: CESIA OSULLIVAN PA Date: 12/19/24 1. A nxiety VIRTUAL APPT 39 y/o ADAF male with improving d epression/anxiety. R eviewed PHQ-9, ELISABETH-7. D oes not appear to be increased safety risk. Continue Zoloft 100 mg once daily dosing, given fatigue and sexual side effects began Wellbutrin 150 mg once daily dosing. - Discussed can take 4-6 weeks to see improvement - Reviewed MH tx o ptions - Seek emergent care for any HI/SI - F/u in 6-8 weeks. Ordered: buPROPion(Wellbutrin XL 150 mg/24 hours oral tablet, extended release), 1 tab(s), Oral, every 24 hr, # 60 tab(s), 0 total refill(s), Maintenance, Pharmacy: [facility] #[id number] [External Rx] sertraline(Zoloft 100 mg oral tablet), 1 tab(s), Oral, Daily, # 60 tab(s), 0 total refill(s), Maintenance, Pharmacy: [facility] #[id number] [External Rx] The patient (is) World Wide Qualified. AM Dispo: Non-Fly Cleared for AFSC/MOS Duties: Y es Cleared for continued service: Yes Cleared for mobility duties: Yes Cleared for participation in physical fitness program: Yes Maj Diego Osullivan, BSC, PA-C [facility] ([facility]) [place] Please note that this dictation was completed with computer voice recognition software, Muzy. Quite often unanticipated grammatical, syntax, homophones, and other interpretive errors are inadvertently transcribed by the computer software. Please disregard these errors and excuse any errors that have escaped final proofreading. If are any questions regarding documentation, please contact this provider directly. Extracted from:Title: [facility] Anxiety Author: CESIA OSULLIVAN PA Date: 11/02/24 1. A nxiety 39 y /o ADCG m tom with worsening depression/anxiety. R eviewed PHQ-9, ELISABETH-7. D oes not appear to be increased safety risk. R ecommend starting on daily Zoloft 50 mg x 1 week, then increasing to 100 mg once daily. - Discussed can take 4-6 to see improvement with SSRIs - Reviewed MH tx o ptions - Seek emergent care for any HI/SI - F/u in 4-6 w eeks. Ordered: sertraline(sertraline 50 mg oral tablet), See Instructions, Take one tablet by mouth every day for 7 days, then take two tablets by mouth every day thereafter, # 77 tab(s), 0 total refill(s), Maintenance, 42 days, Pharmacy: [facility] #[id number] [External Rx] 2. E ssential hypertension Est d x. Home BP at goal range. P er JNC 8 BP Goal < 140/90. Asymptomatic. Complete screening labs. Continue Lisinopril 10 mg once daily dosing - Reviewed diet/exercise, impact of weight loss - Discussed DASH diet - Limit ETOH intake - Continue h ome BP monitoring - F/u in 30 days to re-evaluate BP and titrate medication Ordered: lisinopril(lisinopril 10 mg oral tablet), 1 tab(s), Oral, Daily, for blood pressure, # 90 tab(s), 3 total refill(s), Maintenance, Pharmacy: [facility] #[id number] [External Rx] Basic Metabolic Panel Microalbumin Panel, Urine The patient (is) World Wide Qualified. AM Dispo: Non-Fly Cleared for AFSC/MOS Duties: Y es Cleared for continued service: Yes Cleared for mobility duties: Yes Cleared for participation in physical fitness program: Yes Maj Diego Osullivan, NELSON, PA-C [facility] ([facility]) [place] Please note that this dictation was completed with computer voice recognition software, Muzy. Quite often unanticipated grammatical, syntax, homophones, and other interpretive errors are inadvertently transcribed by the computer software. Please disregard these errors and excuse any errors that have escaped final proofreading. If are any questions regarding documentation, please contact this provider directly. Extracted from:Title: Right ganglion cyst Author: SADI SAUL, Date: 09/28/24 Ganglion cyst Patient p resented to [facility] for US-guided aspiration of cyst on volar aspect of wrist. Previous US demonstrated transilluminating, multiloculated 1.2 x 1.5 x 0.6 cm c yst located adjacent to vessels. Discussed with patient given multiloculated nature of cyst, conservative management with aspiration will likely be ineffective in preventing recurrence. Additionally, discussed other complications of procedure including proximity to vessels and risk of infection. After risks and benefits discussion, patient elected to pursue further treatment with hand surgeon. 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 I have reviewed the note and agree with the findings, assessment, and plan except as I have documented below. Follow up as listed. All labs/imaging/consults to be followed by the ordering provider. Corry Hussein DO, , BRUNA, Staff Physician Extracted from:Title: [facility] - Virtual MHA/PHA Author: MC NEAL MD Date: 09/21/24 1. 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 IMR Status: R ED D ental Class 3 , s cheduled October 31. ? 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 [id number] HIV, UTD. Reviewed valet service attendant's completed PHA record review and IMR status. MHA completed and copied to this record. 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 Preventative services not reviewed as part of PHA process, readiness review only, PHA d oes not take the place of routine wellness or PCM visit. Reviewed readiness immunizations s tatus. Reviewed readiness lab. Reviewed o ccupational health examinations status, member to schedule any overdue items with the [facility], member not contacted. Any non-readiness medical concerns to be addressed with PCM. Medication list reviewed for any unaddressed retention limiting conditions o r concerns; however member not contacted a nd interviewed a t time of visit. A or recent medication changes and/or concerns will n eed to be addressed by PCM team. [facility] 0[facility]. PHA completed and ASIMS updated. Any retention a nd/or readiness issues identified while conducting the PHA have been communicated to PCM via Mary Lou. produce production team member to follow up with iain layton PCM for all other c oncerns. //SIGNED// Lt Alex TRAN USAF, MC, FS Family Physician/Flight Surgeon [address]/SGXF [facility] Clinic [employer] (P) 2. A nxiety M ember with anxiety/depression, did review available resources with member and reviewed counseling on psychiatric medications f rom last Apr-Jun 2023 prior to my going on 6 month TDY from October to April, a nd member being lost to care after l ast follow up with Terrell Gerardo eb -did let member know he will need to follow up with his PCM if interested in starting psychiatric medications or referral for therapy -f/u with PCM and MH as needed [facility] [id number] Extracted from:Title: [facility] Back pain Author: BHARATHI HERNANDEZ PA Date: 09/14/24 1. T horacic back pain 38 Years o ld M c /o u pper back pain x 2 m onths. Denies injury. D enies r adiation. Endorses occipital HAs. PE u nremarkable. Suspect tightness of t rapezius. - Advised to avoid aggravating activities - Recommended gentle exercise/stretching and heat t herapy - N SAIDs prn. Risks discussed with prolonged use - Flexeril 10mg. Discussed SE - P T referral placed - F /u p rn. Will consider imaging, BFA, Pain Management, and/or Neurosurgery consult? Ordered: cyclobenzaprine(cyclobenzaprine 10 mg oral tablet), 1 tab(s), Oral, TID, PRN spasm, Use on PRN basis for severe pain. Limit use to one tablet every 8 hours, X 30 days, # 30 tab(s), 0 total refill(s), Acute, Pharmacy: [facility] [Not filled] Referral Request 2.0 - [facility] 2. L ow back pain Pt reports chronic LBP. Endorses improvement with PT and would like another referral. Denies saddle anesthesia. Denies bowel and bladder incontinence. PE u nremarkable.? No foot drop. No midline tenderness. Neurovascularly intact. - Advised to avoid a ggravating activities - Recommended gentle exercise/stretching and heat therapy - NSAIDs prn. Risks discussed with prolonged use - Lidoderm patches prn - PT referral placed - F/u prn. Will consider imaging, Ortho vs Pain Management c onsult if no improvement Ordered: cyclobenzaprine(cyclobenzaprine 10 mg oral tablet), 1 tab(s), Oral, TID, PRN spasm, Use on PRN basis for severe pain. Limit use to one tablet every 8 hours, X 30 days, # 30 tab(s), 0 total refill(s), Acute, Pharmacy: [facility] [Not filled] Referral Request 2.0 - [facility] Medications reconciled. Pt verbalized understanding and agreement. BHARATHI HERNANDEZ, 1st Lt, PAShahabz [facility] Medicine [place] [address] Extracted from:Title: [facility] - mass of R wrist Author: LORI ANTOINE MD Date: 07/26/24 1. M ass of wrist Chronic, 6 mths. P ain w/ certain activities. No red flags on exam. Suspect ganglion cyst most likely v lipoma. - US for further characterization - If cystic, will refer to [facility] proc clinic for tx - If lipomatous, will refer to hand surgeon - Advised against trauma to tx (hitting w/ a bible or heavy book) - F/u pending US results, will contact pt once results Ordered: US Superficial Extremity Lori Antoine MD, RENETTA, MPH PGY-3, Family Medicine [place], [place], [place] Extracted from:Title: [facility] URI Author: JOE KATZ DO Date: 07/25/24 URI - Upper respiratory infection Time course and symptoms consistent with viral etiology. Afebrile, no significant respiratory symptoms to suggest influenza. No respiratory distress, evidence of moderate to severe range dehydration, or acutely concerning vital signs. Benign exam without focal findings to suggest bacterial etiology of PNA or sinusitis. Will treat symptomatically - Tylenol/motrin prn for pain, discomfort and fever - Encouraged maintaining hydration and rest - Tea, honey and salt water gargles for sore throat and cough - Guaifenesin/pseudoephedrine f or cough and congestion - Benzocaine lozenges for sore throat - Saline sinus rinses recommended for rhinosinusitis symptoms, instructions for use provided - Pt. to follow up for worsening symptoms in 3-5 days or persistence in one week - RTC for respiratory distress or inability to hydrate per our discussion - Pt told to expect cough to resolve slowly over next several weeks up to 2 months - 24 hours of quarters placed f/u in 2 days if symptoms worsen or still feel too sick to return to work. Capt Aguilar DO, USAF Family Physician [facility] in [place], [place] [address] [address] Extracted from:Title: [facility] - Low back/hip pain Author: OSMAR PEREZ DO Date: 05/12/24 1. L ow back pain Chronic. Stable. Suspect 2/2 degenerative forces, no recent injury or trauma. Will refer to PT for further evaluation and management. Will obtain radiographs to r/o bony abnormalities. Ordered: Referral Request 2.0 - DoD 2. R ight hip pain New finding. Acute, uncontrolled. Low suspicion for fracture with no history of trauma. Low suspicion for dangerous medical conditions including bone tumor, septic arthritis, osteonecrosis, or aortoiliac arterial insufficiency. No other joint pain to suggest rheumatoid arthritis. Plan: - Referrals: PT referral with emphasis on strengthening muscles stabilizing the scapula followed by correcting imbalances in rotator cuff muscles, then improving overall shoulder strength and coordination - XR to r/o bony abnormalities, consider referral to sports medicine if symptoms persist. Ordered: Referral Request 2.0 - DoD Orders: XR Hip w/ Pelvis 2 or 3 Views Right XR Spine Lumbosacral 4+ Views The patient (is ) World Wide Qualified. 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 Visit deployment related: N o Profile Reviewed MEB in progress: No IMR/ASIMS Status: [_] Green (no action), Member aware. [_] Yellow (Action: Member is currently due for _, notified to take action) [X] RED (Action: Member is currently OVERDUE for PHA and HIV, notified to take action/or addressed overdue items) Osmar Perez DO, Sergio, [employer], Auto Tune Up Mechanic [address] [facility], [place] Extracted from:Title: [facility] - LBP Author: TRI WOOD Date: 11/22/23 D iagnosis: 1 . L umbar spondylosis Comment: C hiropractic Diversified Adjustments Prone T/S S enrico posture to Ilium, SI and L/S A T Performed attended, prone, Carey Flexion/Distraction (12min) to L/S - 59 Bugs: b ack into the table. Once able to breath while bracing core in this position, begin to progress exercise. 1. Extend one arm at a time overhead until just above the table, then alternate 2. E xtend o ne leg at a time until just above the table, then alternate 3. Extend one arm and opposite leg at the same time, then alternate Patient was shown and demonstrated understanding. Perform 3 sets of 10 reps. ( 10min) Hip Mobility 90/90 Stretches: The patient is s eated on the floor with both knees flexed to 90*, one pointing forward and one pointing out laterally, with the pelvis facing forward. The patient was instructed to sit up tall and push knees into the ground for 30 seconds and then to rotate, pivoting on the heels, to the other side. T he patient was instructed t o perform 3 sets of 30 seconds bilaterally, twice daily. (10min) Pin and stretch p erformed to: i liolumbar ligament l cait dorsal s acral ligament? O rdered: Ther Px 1/> Areas Each 15 Minutes Massage 53610; 11/22/2023 14:31:00 CDT, 10 b y ENRIKE VILLASENOR DC ? Therapeutic Px 1/> Areas Each 15 Min Exercises [id number]; 11/22/2023 14:31:00 CDT, 10 ? [facility] New Level 3; 11/22/2023 14:31:00 CDT, 25 ? Manual Therapy Tqs 1/> Regions Each 15 Minutes [id number]; 11/22/2023 14:31:00 CDT, 59 ? Chiropractic Manipulative Tx Spinal 1-2 Regions [id number]; 11/22/2023 14:31:00 CDT, AT D iagnosis: 2 . S acroiliac joint somatic dysfunction Comment: C hiropractic Diversified Adjustments Prone T/S S enrico posture to Ilium, SI and L/S A T Ordered: [id number] - Clinic New Level 3; 11/22/2023 14:31:00 CDT, 25 b y ENRIKE VILLASENOR DC ? Chiropractic Manipulative Tx Spinal 1-2 Regions [id number]; 11/22/2023 14:31:00 CDT, AT D iagnosis: 3 . T horacic segmental dysfunction Comment: C hiropractic Diversified Adjustments Prone T/S S enrico posture to Ilium, SI and L/S A T Ordered: [id number] - Clinic New Level 3; 11/22/2023 14:31:00 CDT, 25 b y ENRIKE VILLASENOR DC ? Chiropractic Manipulative Tx Spinal 1-2 Regions [id number]; 11/22/2023 14:31:00 CDT, AT D iagnosis: 4 . L umbar segmental dysfunction Comment: C hiropractic Diversified Adjustments Prone T/S S enrico posture to Ilium, SI and L/S A T Ordered: [id number] - Clinic New Level 3; 11/22/2023 14:31:00 CDT, 25 b y ENRIKE VILLASENOR DC ? Chiropractic Manipulative Tx Spinal 1-2 Regions [id number]; 11/22/2023 14:31:00 CDT, AT Diagnosis of S pondylosis, Lumbar Region M47.896 S acroiliac joint d ysfunction ? is consistent with clinical findings of b iomechanical low back pain.SIJ dysfunction. & #160;loss of segmental ROM. positive orthopedic exam. Patient prognosis is g ood b ased on patient's i nitial positive response to treatment, reported decreased pain and increase in range of motion s/p treatment. Patient advised of the nature of chiropractic examination and treatment, the risks and benefits of chiropractic versus other procedures for t his condition, relative chance of each occurrence, exacerbation of current clinical s/sx, and alternative options including no treatment. Verbal informed consent was given by the patient to proceed with evaluation and treatment. Patient may expect total relief from pain, temporary relief from pain, increased pain, residual muscle soreness after the initial treatment which should resolve within a few days. If pain becomes intolerable patient to contact this clinic directly for acute care appointment and/or referral instruction. Advised patient consent may be revoked by them at any time. Pt verbalized understanding of informed consent and verbalized consent to examination and treatment today. Pt directs consent to be valid for all treatments rendered in this clinic. T joanne for patient questions was allotted and all questions were answered. Ileana Ricardo [facility] [place], assisted Dheeraj villalobos [facility] patient care. //SIGNED// Dr. Enrike Villasenor, JOSE, RMSK Chiropractic Physician 375 [employer]ational Medical Readiness [facility] Downing [facility] Main Line DSN/Comm: [phone] / [phone] 11/22/23 15:19:08 Extracted from:Title: Ambulatory Patient Education Author: BEULAH MCMULLEN MD Date: 08/05/21 Patient Education Materials Follows: Thyroid Nodule A thyroid nodule is an isolated growth of thyroid cells that forms a lump in your thyroid gland. The thyroid gland is a butterfly-shaped gland. It is found in the lower front of your neck. This gland sends chemical messengers (hormones) through your blood to all parts of your body. These hormones are important in regulating your body temperature and helping your body to use energy. Thyroid nodules are common. Most are not cancerous (benign). You may have one nodule or several nodules. Different types of thyroid nodules include nodules that: Grow and fill with fluid (thyroid cysts). Produce too much thyroid hormone (hot nodules or hyperthyroid). Produce no thyroid hormone (cold nodules or hypothyroid). Form from cancer cells (thyroid cancers). What are the causes? In most cases, the cause of this condition is not known. What increases the risk? The following factors may make you more likely to develop this condition. Age. Thyroid nodules become more common in people who are older than 45 years of age. Gender. Benign thyroid nodules are more common in women. Cancerous (malignant) thyroid nodules are more common in men. A family history that includes: Thyroid nodules. Pheochromocytoma. Thyroid carcinoma. Hyperparathyroidism. Certain kinds of thyroid diseases, such as Darline's thyroiditis. Lack of iodine in your diet. A history of head and neck radiation, such as from previous cancer treatment. What are the signs or symptoms? In many cases, there are no symptoms. If you have symptoms, they may include: A lump in your lower neck. Feeling a lump or tickle in your throat. Pain in your neck, jaw, or ear. Having trouble swallowing. Hot nodules may cause symptoms that include: Weight loss. Warm, flushed skin. Feeling hot. Feeling nervous. A racing heartbeat. Cold nodules may cause symptoms that include: Weight gain. Dry skin. Brittle hair. This may also occur with hair loss. Feeling cold. Fatigue. Thyroid cancer nodules may cause symptoms that include: Hard nodules that feel stuck to the thyroid gland. Hoarseness. Lumps in the glands near your thyroid (lymph nodes). How is this diagnosed? A thyroid nodule may be felt by your health care provider during a physical exam. This condition may also be diagnosed based on your symptoms. You may also have tests, including: An ultrasound. This may be done to confirm the diagnosis. A biopsy. This involves taking a sample from the nodule and looking at it under a microscope. Blood tests to make sure that your thyroid is working properly. A thyroid scan. This test uses a radioactive tracer injected into a vein to create an image of the thyroid gland on a computer screen. Imaging tests such as MRI or CT scan. These may be done if: Your nodule is large. Your nodule is blocking your airway. Cancer is suspected. How is this treated? Treatment depends on the cause and size of your nodule or nodules. If the nodule is benign, treatment may not be necessary. Your health care provider may monitor the nodule to see if it goes away without treatment. If the nodule continues to grow, is cancerous, or does not go away, treatment may be needed. Treatment may include: Having a cystic nodule drained with a needle. Ablation therapy. In this treatment, alcohol is injected into the area of the nodule to destroy the cells. Ablation with heat (thermal ablation) may also be used. Radioactive iodine. In this treatment, radioactive iodine is given as a pill or liquid that you drink. This substance causes the thyroid nodule to shrink. Surgery to remove the nodule. Part or all of your thyroid gland may need to be removed as well. Medicines. Follow these instructions at home: Pay attention to any changes in your nodule. Take cetx-svn-iluubei and prescription medicines only as told by your health care provider. Keep all follow-up visits as told by your health care provider. This is important. Contact a health care provider if: Your voice changes. You have trouble swallowing. You have pain in your neck, ear, or jaw that is getting worse. Your nodule gets bigger. Your nodule starts to make it harder for you to breathe. Your muscles look like they are shrinking (muscle wasting). Get help right away if: You have chest pain. There is a loss of consciousness. You have a sudden fever. You feel confused. You are seeing or hearing things that other people do not see or hear (having hallucinations). You feel very weak. You have mood swings. You feel very restless. You feel suddenly nauseous or throw up. You suddenly have diarrhea. Summary A thyroid nodule is an isolated growth of thyroid cells that forms a lump in your thyroid gland. Thyroid nodules are common. Most are not cancerous (benign). You may have one nodule or several nodules. Treatment depends on the cause and size of your nodule or nodules. If the nodule is benign, treatment may not be necessary. Your health care provider may monitor the nodule to see if it goes away without treatment. If the nodule continues to grow, is cancerous, or does not go away, treatment may be needed. This information is not intended to replace advice given to you by your health care provider. Make sure you discuss any questions you have with your health care provider. Document Released: 07/09/2005 Document Revised: 04/03/2019 Document Reviewed: 04/03/2019 Blockchain Interactive Patient Education 2019 ExoYou. Future Scheduled TestsLaboratoryMicroalbumin Panel, Urine 11/02/24Basic Metabolic Panel 11/02/24 01/03/2025 [id number] Assessment and Plan Extracted from:Title : [facility] LBP Author: CESIA OSULLIVAN PA Date: 12/26/24 1. L ow back pain 39 y/o ADAF male with acute on chronic low back pain w radiculopathy sxs. N o red flag sxs or exam findings. S uspect s pasm Recommend F itness restrictions at this time. Place on 72 hour quarters. Complete plain films. - Continue R obaxin a nd P rednisone as p reviously p rescribed for pain - D iscussed ER precautions - F/u PRN Ordered: XR Spine Lumbosacral 2 or 3 Views The patient (is) World Wide Qualified. AM Dispo: Non-Fly Cleared for AFSC/MOS Duties: Y es Cleared for continued service: Yes Cleared for mobility duties: Yes Cleared for participation in physical fitness program: Yes with restrictions Maj Diego Osullivan BSC, PAChristianoC [facility] ([facility]) [place] Please note that this dictation was completed with computer voice recognition software, Muzy. Quite often unanticipated grammatical, syntax, homophones, and other interpretive errors are inadvertently transcribed by the computer software. Please disregard these errors and excuse any errors that have escaped final proofreading. If are any questions regarding documentation, please contact this provider directly. Extracted from:Title: [facility] Anxiety Author: CESIA OSULLIVAN PA Date: 12/19/24 1. A nxiety VIRTUAL APPT 39 y/o ADAF male with improving d epression/anxiety. R eviewed PHQ-9, ELISABETH-7. D oes not appear to be increased safety risk. Continue Zoloft 100 mg once daily dosing, given fatigue and sexual side effects began Wellbutrin 150 mg once daily dosing. - Discussed can take 4-6 weeks to see improvement - Reviewed MH tx o ptions - Seek emergent care for any HI/SI - F/u in 6-8 weeks. Ordered: buPROPion(Wellbutrin XL 150 mg/24 hours oral tablet, extended release), 1 tab(s), Oral, every 24 hr, # 60 tab(s), 0 total refill(s), Maintenance, Pharmacy: [facility] #[id number] [External Rx] sertraline(Zoloft 100 mg oral tablet), 1 tab(s), Oral, Daily, # 60 tab(s), 0 total refill(s), Maintenance, Pharmacy: [facility] #[id number] [External Rx] The patient (is) World Wide Qualified. AM Dispo: Non-Fly Cleared for AFSC/MOS Duties: Y es Cleared for continued service: Yes Cleared for mobility duties: Yes Cleared for participation in physical fitness program: Yes Maj Diego Osullivan, NELSON, PAChristianoC [facility] ([facility]) [place] Please note that this dictation was completed with computer voice recognition software, Vend-a-Barpeak. Quite often unanticipated grammatical, syntax, homophones, and other interpretive errors are inadvertently transcribed by the computer software. Please disregard these errors and excuse any errors that have escaped final proofreading. If are any questions regarding documentation, please contact this provider directly. Extracted from:Title: [facility] Anxiety Author: CESIA OSULLIVAN PA Date: 11/02/24 1. A nxiety 39 y /o ADCG m tom with worsening depression/anxiety. R eviewed PHQ-9, ELISABETH-7. D oes not appear to be increased safety risk. R ecommend starting on daily Zoloft 50 mg x 1 week, then increasing to 100 mg once daily. - Discussed can take 4-6 to see improvement with SSRIs - Reviewed MH tx o ptions - Seek emergent care for any HI/SI - F/u in 4-6 w eeks. Ordered: sertraline(sertraline 50 mg oral tablet), See Instructions, Take one tablet by mouth every day for 7 days, then take two tablets by mouth every day thereafter, # 77 tab(s), 0 total refill(s), Maintenance, 42 days, Pharmacy: [facility] #[id number] [External Rx] 2. E ssential hypertension Est d x. Home BP at goal range. P er JNC 8 BP Goal < 140/90. Asymptomatic. Complete screening labs. Continue Lisinopril 10 mg once daily dosing - Reviewed diet/exercise, impact of weight loss - Discussed DASH diet - Limit ETOH intake - Continue h ome BP monitoring - F/u in 30 days to re-evaluate BP and titrate medication Ordered: lisinopril(lisinopril 10 mg oral tablet), 1 tab(s), Oral, Daily, for blood pressure, # 90 tab(s), 3 total refill(s), Maintenance, Pharmacy: [facility] #[id number] [External Rx] Basic Metabolic Panel Microalbumin Panel, Urine The patient (is) World Wide Qualified. AM Dispo: Non-Fly Cleared for AFSC/MOS Duties: Y es Cleared for continued service: Yes Cleared for mobility duties: Yes Cleared for participation in physical fitness program: Yes Maj Diego Osullivan BSC, PA-C [facility] ([facility]) [place] Please note that this dictation was completed with computer voice recognition software, Muzy. Quite often unanticipated grammatical, syntax, homophones, and other interpretive errors are inadvertently transcribed by the computer software. Please disregard these errors and excuse any errors that have escaped final proofreading. If are any questions regarding documentation, please contact this provider directly. Extracted from:Title: Right ganglion cyst Author: SADI SAUL DO Date: 09/28/24 Ganglion cyst Patient p resented to [facility] for US-guided aspiration of cyst on volar aspect of wrist. Previous US demonstrated transilluminating, multiloculated 1.2 x 1.5 x 0.6 cm c yst located adjacent to vessels. Discussed with patient given multiloculated nature of cyst, conservative management with aspiration will likely be ineffective in preventing recurrence. Additionally, discussed other complications of procedure including proximity to vessels and risk of infection. After risks and benefits discussion, patient elected to pursue further treatment with hand surgeon. 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 I have reviewed the note and agree with the findings, assessment, and plan except as I have documented below. Follow up as listed. All labs/imaging/consults to be followed by the ordering provider. Corry Hussein DO, CHARLIE Carson, Staff Physician Extracted from:Title: [facility] - Virtual MHA/PHA Author: MC NEAL MD Date: 09/21/24 1. 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 IMR Status: R ED D ental Class 3 , s cheduled October 31. ? 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 [id number] HIV, UTD. Reviewed valet service attendant's completed PHA record review and IMR status. MHA completed and copied to this record. 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 Preventative services not reviewed as part of PHA process, readiness review only, PHA d oes not take the place of routine wellness or PCM visit. Reviewed readiness immunizations s tatus. Reviewed readiness lab. Reviewed o ccupational health examinations status, member to schedule any overdue items with the [facility], member not contacted. Any non-readiness medical concerns to be addressed with PCM. Medication list reviewed for any unaddressed retention limiting conditions o r concerns; however member not contacted a nd interviewed a t time of visit. A or recent medication changes and/or concerns will n eed to be addressed by PCM team. [facility] 0[facility]. PHA completed and ASIMS updated. Any retention a nd/or readiness issues identified while conducting the PHA have been communicated to PCM via Mary Lou. produce production team member to follow up with [place] PCM for all other c oncerns. //SIGNED// MC NEAL, Col, USAF, MC, FS Family Physician/Flight Surgeon [id number] [facility] Clinic [place] (P) [phone] 2. A nxiety M ember with anxiety/depression, did review available resources with member and reviewed counseling on psychiatric medications f rom last Apr-Jun 2023 prior to my going on 6 month TDY from October to April, a nd member being lost to care after l ast follow up with Terrell gil i n Akin eb -did let member know he will need to follow up with his PCM if interested in starting psychiatric medications or referral for therapy -f/u with PCM and MH as needed NATALEE [phone] Extracted from:Title: [facility] Back pain Author: BHARATHI HERNANDEZ PA Date: 09/14/24 1. T horacic back pain 38 Years o ld M c /o u pper back pain x 2 m onths. Denies injury. D enies r adiation. Endorses occipital HAs. PE u nremarkable. Suspect tightness of t rapezius. - Advised to avoid aggravating activities - Recommended gentle exercise/stretching and heat t herapy - N SAIDs prn. Risks discussed with prolonged use - Flexeril 10mg. Discussed SE - P T referral placed - F /u p rn. Will consider imaging, BFA, Pain Management, and/or Neurosurgery consult? Ordered: cyclobenzaprine(cyclobenzaprine 10 mg oral tablet), 1 tab(s), Oral, TID, PRN spasm, Use on PRN basis for severe pain. Limit use to one tablet every 8 hours, X 30 days, # 30 tab(s), 0 total refill(s), Acute, Pharmacy: [facility] [Not filled] Referral Request 2.0 - [facility] 2. L ow back pain Pt reports chronic LBP. Endorses improvement with PT and would like another referral. Denies saddle anesthesia. Denies bowel and bladder incontinence. PE u nremarkable.? No foot drop. No midline tenderness. Neurovascularly intact. - Advised to avoid a ggravating activities - Recommended gentle exercise/stretching and heat therapy - NSAIDs prn. Risks discussed with prolonged use - Lidoderm patches prn - PT referral placed - F/u prn. Will consider imaging, Ortho vs Pain Management c onsult if no improvement Ordered: cyclobenzaprine(cyclobenzaprine 10 mg oral tablet), 1 tab(s), Oral, TID, PRN spasm, Use on PRN basis for severe pain. Limit use to one tablet every 8 hours, X 30 days, # 30 tab(s), 0 total refill(s), Acute, Pharmacy: [facility] [Not filled] Referral Request 2.0 - [facility] Medications reconciled. Pt verbalized understanding and agreement. BHARATHI HERNANDEZ, 1st Lt, PA-C [facility] Medicine [place] [address] Extracted from:Title: [facility] - mass of R wrist Author: LORI ANTOINE MD Date: 07/26/24 1. M ass of wrist Chronic, 6 mths. P ain w/ certain activities. No red flags on exam. Suspect ganglion cyst most likely v lipoma. - US for further characterization - If cystic, will refer to [facility] proc clinic for tx - If lipomatous, will refer to hand surgeon - Advised against trauma to tx (hitting w/ a bible or heavy book) - F/u pending US results, will contact pt once results Ordered: US Superficial Extremity Lori Antoine MD, RENETTA, MPH PGY-3, [facility], [place], [place] Extracted from:Title: [facility] URI Author: JOE KATZ, DO Date: 07/25/24 URI - Upper respiratory infection Time course and symptoms consistent with viral etiology. Afebrile, no significant respiratory symptoms to suggest influenza. No respiratory distress, evidence of moderate to severe range dehydration, or acutely concerning vital signs. Benign exam without focal findings to suggest bacterial etiology of PNA or sinusitis. Will treat symptomatically - Tylenol/motrin prn for pain, discomfort and fever - Encouraged maintaining hydration and rest - Tea, honey and salt water gargles for sore throat and cough - Guaifenesin/pseudoephedrine f or cough and congestion - Benzocaine lozenges for sore throat - Saline sinus rinses recommended for rhinosinusitis symptoms, instructions for use provided - Pt. to follow up for worsening symptoms in 3-5 days or persistence in one week - RTC for respiratory distress or inability to hydrate per our discussion - Pt told to expect cough to resolve slowly over next several weeks up to 2 months - 24 hours of quarters placed f/u in 2 days if symptoms worsen or still feel too sick to return to work. Joe Katz DO, Capt, [facility], Family Physician [facility] in [place] [address] [address] [address] Extracted from:Title: [facility] - Low back/hip pain Author: OSMAR PEREZ, DO Date: 05/12/24 1. L ow back pain Chronic. Stable. Suspect 2/2 degenerative forces, no recent injury or trauma. Will refer to PT for further evaluation and management. Will obtain radiographs to r/o bony abnormalities. Ordered: Referral Request 2.0 - DoD 2. R ight hip pain New finding. Acute, uncontrolled. Low suspicion for fracture with no history of trauma. Low suspicion for dangerous medical conditions including bone tumor, septic arthritis, osteonecrosis, or aortoiliac arterial insufficiency. No other joint pain to suggest rheumatoid arthritis. Plan: - Referrals: PT referral with emphasis on strengthening muscles stabilizing the scapula followed by correcting imbalances in rotator cuff muscles, then improving overall shoulder strength and coordination - XR to r/o bony abnormalities, consider referral to sports medicine if symptoms persist. Ordered: Referral Request 2.0 - DoD Orders: XR Hip w/ Pelvis 2 or 3 Views Right XR Spine Lumbosacral 4+ Views The patient (is ) World Wide Qualified. 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 Visit deployment related: N o Profile Reviewed MEB in progress: No IMR/ASIMS Status: [_] Green (no action), Member aware. [_] Yellow (Action: Member is currently due for _, notified to take action) [X] RED (Action: Member is currently OVERDUE for PHA and HIV, notified to take action/or addressed overdue items) Osmar Perez DO, Sergio, [employer], Auto Tune Up Mechanic [address] [facility], [place] Extracted from:Title: [facility] - LBP Author: TRI WOOD Date: 11/22/23 D iagnosis: 1 . L umbar spondylosis Comment: C hiropractic Diversified Adjustments Prone T/S S enrico posture to Ilium, SI and L/S A T Performed attended, prone, Carey Flexion/Distraction (12min) to L/S - 59 Bugs: b ack into the table. Once able to breath while bracing core in this position, begin to progress exercise. 1. Extend one arm at a time overhead until just above the table, then alternate 2. E xtend o ne leg at a time until just above the table, then alternate 3. Extend one arm and opposite leg at the same time, then alternate Patient was shown and demonstrated understanding. Perform 3 sets of 10 reps. ( 10min) Hip Mobility 90/90 Stretches: The patient is s eated on the floor with both knees flexed to 90*, one pointing forward and one pointing out laterally, with the pelvis facing forward. The patient was instructed to sit up tall and push knees into the ground for 30 seconds and then to rotate, pivoting on the heels, to the other side. T he patient was instructed t o perform 3 sets of 30 seconds bilaterally, twice daily. (10min) Pin and stretch p erformed to: i liolumbar ligament l cait dorsal s acral ligament? O rdered: Ther Px 1/> Areas Each 15 Minutes Massage [id number]; 11/22/2023 14:31:00 CDT, 10 b y ENRIKE VILLASENOR DC ? Therapeutic Px 1/> Areas Each 15 Min Exercises [id number]; 11/22/2023 14:31:00 CDT, 10 ? [facility] New Level 3; 11/22/2023 14:31:00 CDT, 25 ? Manual Therapy Tqs 1/> Regions Each 15 Minutes [id number]; 11/22/2023 14:31:00 CDT, 59 ? Chiropractic Manipulative Tx Spinal 1-2 Regions [id number]; 11/22/2023 14:31:00 CDT, AT D iagnosis: 2 . S acroiliac joint somatic dysfunction Comment: C hiropractic Diversified Adjustments Prone T/S S enrico posture to Ilium, SI and L/S A T Ordered: [address] [place] [address] New Level 3; 11/22/2023 14:31:00 CDT, 25 b y ENRIKE VILLASENOR DC ? Chiropractic Manipulative Tx Spinal 1-2 Regions [id number]; 11/22/2023 14:31:00 CDT, AT D iagnosis: 3 . T horacic segmental dysfunction Comment: C hiropractic Diversified Adjustments Prone T/S S enrico posture to Ilium, SI and L/S A T Ordered: [address] [place] [address] New Level 3; 11/22/2023 14:31:00 CDT, 25 b y ENRIKE VILLASENOR DC ? Chiropractic Manipulative Tx Spinal 1-2 Reg[place] [id number]; 11/22/2023 14:31:00 CDT, AT D iagnosis: 4 . L umbar segmental dysfunction Comment: C hiropractic Diversified Adjustments Prone T/S S enrico posture to Ilium, SI and L/S A T Ordered: [address] [place] [address] New Level 3; 11/22/2023 14:31:00 CDT, 25 b y ENRIKE VILLASENOR DC ? Chiropractic Manipulative Tx Spinal 1-2 Reg[place] [id number]; 11/22/2023 14:31:00 CDT, AT Diagnosis of S pondylosis, Lumbar Region M47.896 S acroiliac joint d ysfunction ? is consistent with clinical findings of b iomechanical low back pain.SIJ dysfunction. & #160;loss of segmental ROM. positive orthopedic exam. Patient prognosis is g ood b ased on patient's i nitial positive response to treatment, reported decreased pain and increase in range of motion s/p treatment. Patient advised of the nature of chiropractic examination and treatment, the risks and benefits of chiropractic versus other procedures for t his condition, relative chance of each occurrence, exacerbation of current clinical s/sx, and alternative options including no treatment. Verbal informed consent was given by the patient to proceed with evaluation and treatment. Patient may expect total relief from pain, temporary relief from pain, increased pain, residual muscle soreness after the initial treatment which should resolve within a few days. If pain becomes intolerable patient to contact this clinic directly for acute care appointment and/or referral instruction. Advised patient consent may be revoked by them at any time. Pt verbalized understanding of informed consent and verbalized consent to examination and treatment today. Pt directs consent to be valid for all treatments rendered in this clinic. T joanne for patient questions was allotted and all questions were answered. Ileana Ricardo [facility] xtern, assisted Dheeraj villalobos [facility] patient care. //SIGNED// Dr. Enrike Villasenor DC, RMSK Chiropractic Physician [address] [employer] [facility] [place], [place] [facility] DSN/Comm: [phone] / [phone] 11/22/23 15:19:08 Extracted from:Title: Ambulatory Patient Education Author: BEULAH MCMULLEN MD Date: 08/05/21 Patient Education Materials Follows: Thyroid Nodule A thyroid nodule is an isolated growth of thyroid cells that forms a lump in your thyroid gland. The thyroid gland is a butterfly-shaped gland. It is found in the lower front of your neck. This gland sends chemical messengers (hormones) through your blood to all parts of your body. These hormones are important in regulating your body temperature and helping your body to use energy. Thyroid nodules are common. Most are not cancerous (benign). You may have one nodule or several nodules. Different types of thyroid nodules include nodules that: Grow and fill with fluid (thyroid cysts). Produce too much thyroid hormone (hot nodules or hyperthyroid). Produce no thyroid hormone (cold nodules or hypothyroid). Form from cancer cells (thyroid cancers). What are the causes? In most cases, the cause of this condition is not known. What increases the risk? The following factors may make you more likely to develop this condition. Age. Thyroid nodules become more common in people who are older than 45 years of age. Gender. Benign thyroid nodules are more common in women. Cancerous (malignant) thyroid nodules are more common in men. A family history that includes: Thyroid nodules. Pheochromocytoma. Thyroid carcinoma. Hyperparathyroidism. Certain kinds of thyroid diseases, such as Darline's thyroiditis. Lack of iodine in your diet. A history of head and neck radiation, such as from previous cancer treatment. What are the signs or symptoms? In many cases, there are no symptoms. If you have symptoms, they may include: A lump in your lower neck. Feeling a lump or tickle in your throat. Pain in your neck, jaw, or ear. Having trouble swallowing. Hot nodules may cause symptoms that include: Weight loss. Warm, flushed skin. Feeling hot. Feeling nervous. A racing heartbeat. Cold nodules may cause symptoms that include: Weight gain. Dry skin. Brittle hair. This may also occur with hair loss. Feeling cold. Fatigue. Thyroid cancer nodules may cause symptoms that include: Hard nodules that feel stuck to the thyroid gland. Hoarseness. Lumps in the glands near your thyroid (lymph nodes). How is this diagnosed? A thyroid nodule may be felt by your health care provider during a physical exam. This condition may also be diagnosed based on your symptoms. You may also have tests, including: An ultrasound. This may be done to confirm the diagnosis. A biopsy. This involves taking a sample from the nodule and looking at it under a microscope. Blood tests to make sure that your thyroid is working properly. A thyroid scan. This test uses a radioactive tracer injected into a vein to create an image of the thyroid gland on a computer screen. Imaging tests such as MRI or CT scan. These may be done if: Your nodule is large. Your nodule is blocking your airway. Cancer is suspected. How is this treated? Treatment depends on the cause and size of your nodule or nodules. If the nodule is benign, treatment may not be necessary. Your health care provider may monitor the nodule to see if it goes away without treatment. If the nodule continues to grow, is cancerous, or does not go away, treatment may be needed. Treatment may include: Having a cystic nodule drained with a needle. Ablation therapy. In this treatment, alcohol is injected into the area of the nodule to destroy the cells. Ablation with heat (thermal ablation) may also be used. Radioactive iodine. In this treatment, radioactive iodine is given as a pill or liquid that you drink. This substance causes the thyroid nodule to shrink. Surgery to remove the nodule. Part or all of your thyroid gland may need to be removed as well. Medicines. Follow these instructions at home: Pay attention to any changes in your nodule. Take [id number] and prescription medicines only as told by your health care provider. Keep all follow-up visits as told by your health care provider. This is important. Contact a health care provider if: Your voice changes. You have trouble swallowing. You have pain in your neck, ear, or jaw that is getting worse. Your nodule gets bigger. Your nodule starts to make it harder for you to breathe. Your muscles look like they are shrinking (muscle wasting). Get help right away if: You have chest pain. There is a loss of consciousness. You have a sudden fever. You feel confused. You are seeing or hearing things that other people do not see or hear (having hallucinations). You feel very weak. You have mood swings. You feel very restless. You feel suddenly nauseous or throw up. You suddenly have diarrhea. Summary A thyroid nodule is an isolated growth of thyroid cells that forms a lump in your thyroid gland. Thyroid nodules are common. Most are not cancerous (benign). You may have one nodule or several nodules. Treatment depends on the cause and size of your nodule or nodules. If the nodule is benign, treatment may not be necessary. Your health care provider may monitor the nodule to see if it goes away without treatment. If the nodule continues to grow, is cancerous, or does not go away, treatment may be needed. This information is not intended to replace advice given to you by your health care provider. Make sure you discuss any questions you have with your health care provider. Document Released: 07/09/2005 Document Revised: 04/03/2019 Document Reviewed: 04/03/2019 [employer] Patient Education 2019 [employer] Future Scheduled TestsLaboratoryMicroalbumin Panel, Urine 11/02/24Basic Metabolic Panel 11/02/24 01/03/2025 Unknown Organization Functional Status Combined list of recent functional and cognitive assessments recorded at [facility] Functional Whitefield Measurement (FIM) Scale: 1 = Total Assistance (Subject = 0% +), 2 = Maximal Assistance (Subject = 25% +), 3 = Moderate Assistance (Subject = 50% +), 4 = Minimal Assistance (Subject = 75% +), 5 = Supervision, 6 = Modified Whitefield (Device), 7 = Complete Whitefield (Timely, Safely). Assessment Date/Time Source Assessment Type Assessment Skill Assessment Score Assessment Details No data available for this section
[2025-01-03 15:36] VITALS: BP 164/110; PULSE 87; RESP 16; TEMP 36.6; O2SAT 99
[2025-01-03 16:44] LABS: Add Urine Microscopic? NO; Appearance Urine Clear (Clear); Bilirubin Urine Negative (Negative); Blood Urine Negative (Negative); Color Urine Yellow (Yellow); Glucose Urine UA Negative (Negative); Ketones Urine Negative (Negative); Leukocyte Esterase Ur Negative LEU/UL (Negative); Nitrate Urine Negative (Negative); Protein Urine Negative (Negative); Specific Grav Ur 1.024 (1.001-1.035); pH Urine 5.5 (5.0-9.0)
--- OUTSIDE RECORDS SUMMARY | 2025-01-03 16:46 | XMS_ITS | Clinical Summary ---
Author Organization [facility] Address [address] [place] [address] Care Team Providers Care Media Center Specialist Name Role Phone Amaris [facility] Provider Allergies No known active [...] patient's age to complete this topic Insurance [facility] Care Teams Media Center Specialist Relationship Specialty Start Date End Date [facility] [address] [place] [address] PCP - General 01/18/24
--- OUTSIDE RECORDS SUMMARY | 2025-01-03 16:46 | XMS_ITS | Referral Summary ---
Author Organization [facility] Address [address] [place] [address] Care Team Providers Care Spin Tank Tender Name Role Phone Amaris [facility] Primary Care Provider Allergies No known active [...] Plan of Treatment Not on file Insurance [facility] Care Teams Spin Tank Tender Relationship Specialty Start Date End Date [facility] [address] [place], [place] [id number] PCP - General 01/18/24
--- OUTSIDE RECORDS SUMMARY | 2025-01-03 16:46 | XMS_ITS | Continuity of Care Document ---
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 Name Role Phone [facility] Unavailable Unavailable Problems Combined list of problems [...] Abnormal hepatic function Active Condition 0421C-[facility] Anxiety Active Condition [facility] Degenerative disc disease Active Condition 0421C-[facility] Epididymal cyst Active Condition 0421C- [facility] Essential hypertension Active Condition 6130C-Af[facility] GERD - Gastro-esophageal reflux disease Active Condition 0421C-[facility] Hydrocele of testis Active Condition 0421C[facility] Joint pain Active Condition 0055C[facility] Low back pain Active Condition 0421C-[facility] Multiple thyroid nodules Active Condition 0055C[facility] Pain of bilateral knee joints Active Condition 0055C[facility] Thyroid nodule Active Condition 0421C-U [facility] Medications Combined list of outpatient medications from [...] for OTCs.Do not take if . 10/05/2024 [id number] [address] [place] [address] Chang [facility] ([facility]) Omeprazole (Prilosec Eq.) Capsule Conventiona l 40 mg Oral Take or use exactly as directed .Obtain advice for OTCs.Subha carey whole. 10/07/2024 [id number] [address] [place] [address] Chang [facility] ([facility]) VOQUEZNA (vonoprazan fumarate), 10 MG, TABLET, ORAL, PHATHOM PHARMAC, 30 ea. BOTTLE Cancele d [id number] : 2023 0 Pharmac y Data Transac tion Service Facilit y VOQUEZNA (vonoprazan fumarate), 20 MG, TABLET, ORAL, PHATHOM PHARMAC, 30 ea. BOTTLE Cancele d [id number] : 2023 0 Pharmac y Data Transac tion Service Facilit y VOQUEZNA (vonoprazan fumarate), 20 MG, TABLET, ORAL, PHATHOM PHARMAC, 30 ea. BOTTLE Active [id number] 2023 60 Pharmac y Data Transac [...] Site Reaction Lot Number CVX Code Drug Charter Coordinator Status Comments Source Influenza, injectable, quadrivalent, preservative free 0 2020 [id number] [employer] [employer] (SKB) complet ed Influenza , injectabl e, quadrival ent, preservat dax free DoD COVID Vaccine Pfizer 2020 [id number] PFIZER complet ed COVID Vaccine Pfizer 11/15/20 Given Ambulat ory Pharmac y SARS-COV-2 (COVID-19) vaccine, mRNA, spike protein, LNP, preservative free, 30 mcg/0.3mL dose 2 2020 [id number] 208 [employer] (PFR) complet ed SARS-COV- 2 (COVID-19 ) vaccine, mRNA, spike protein, LNP, preservat dax free, 30 mcg/0.3mL dose DoD COVID Vaccine Pfizer 2020 [id number] PFIZER complet ed COVID Vaccine Pfizer 10/23/20 Given Ambulat ory Pharmac y SARS-COV-2 (COVID-19) vaccine, mRNA, spike protein, LNP, preservative free, 30 mcg/0.3mL dose 1 2020 [id number] Pfizer, Inc (PFR) complet ed SARS-COV- 2 (COVID-19 ) vaccine, mRNA, spike protein, LNP, preservat dax free, 30 mcg/0.3mL dose DoD influenza, injectable, quadrivalent- pf 2019 [id number] 150 Se[employer] complet ed influenza , injectabl e, quadrival ent-pf 05/15/20 Given Ambulat ory Pharmac y Influenza, injectable, quadrivalent, preservative free 0 2019 [id number] 150 [employer] (SEQ) complet ed Influenza , injectabl e, quadrival ent, preservat dax free DoD influenza, injectable, quadrivalent- pf 2018 [id number] 150 [employer] complet ed influenza , injectabl e, quadrival ent-pf 06/19/19 Given Ambulat ory Pharmac y Influenza, injectable, quadrivalent, preservative free 0 2018 [id number] 517 150 [employer] (SEQ) complet ed Influenza , injectabl e, quadrival ent, preservat dax free DoD measles/mumps /rubella virus vaccine 2018 [id number] Merck & Company Inc complet ed measles/m umps/rube lla virus vaccine 01/24/19 Given Ambulat ory Pharmac y measles, mumps and rubella virus vaccine 2 2018 [id number] 03 Merck (MSD) complet ed measles, mumps and rubella virus vaccine DoD influenza, injectable, quadrivalent- pf 2017 [id number] 150 [employer] complet ed influenza , injectabl e, quadrival ent-pf 06/20/18 Given Ambulat ory Pharmac y Influenza, injectable, quadrivalent, preservative free 0 2017 [id number] 150 [employer] (SEQ) comple t ed Influenza , injectabl e, quadrival ent, preservat dax free DoD influenza, injectable, quadrivalent- pf 2016 [id number] 150 GlaxoSmith[employer] ne complet ed influenza , injectabl e, quadrival ent-pf 05/27/17 Given Ambulat ory Pharmac y Influenza, injectable, quadrivalent, preservative free 0 2016 [id number] 150 [facility] (SKB) complet ed Influenza , injectabl e, quadrival ent, preservat dax free DoD influenza, injectable, quadrivalent- pf 2015 [id number] 150 Gl[employer]oSmith[employer] ne complet ed influenza , injectabl e, quadrival ent-pf 06/11/16 Given Ambulat ory Pharmac y Influenza, injectable, quadrivalent, preservative free 0 2015 [id number] 150 [facility] (SKB) complet ed Influenza , injectabl e, [...] is vaccine, adsorbed 1 2014 [id number] 115 [facility] (SKB) complet ed tetanus toxoid, reduced diphtheri a toxoid, and acellular pertussis vaccine, adsorbed DoD influenza, live, intranasal, quadrivalent 0 2013 [id number] 149 [employer] (MED) complet ed influenza , live, intranasa l, quadrival ent DoD influenza, live, intranasal,qu adrivalent 2012 [id number] 149 [employer] comple t ed influenza , live, intranasa l,quadriv alent 04/24/13 Given Ambulat ory Pharmac y influenza, live, intranasal, quadrivalent 0 2012 [id number] 149 [employer] [place] (MED) complet ed influenza , live, intranasa l, quadrival ent DoD influenza virus vaccine, live 2011 [id number] 111 [facility] t ed influenza virus vaccine, live 04/20/12 Given Ambulat ory Pharmac y influenza virus vaccine, live, attenuated, for intranasal use 0 2011 [id number] 111 [employer] (MED) complet ed influenza virus vaccine, live, attenuate d, for intranasa l use DoD influenza virus vaccine, live 2010 [id number] 111 [facility] t ed influenza virus vaccine, live 04/14/11 Given Ambulat ory Pharmac y influenza virus vaccine, live, attenuated, for intranasal use 0 2010 UNK 111 [facility] ([facility]) complet ed influenza virus vaccine, [...] use DoD Novel influenza-H1N 1-09, injectable 2008 [id number] 1 127 complet ed Novel influenza -[id number], injectabl e 08/02/09 Given Ambulat ory Pharmac y Novel influenza-H1N 1-09, injectable 1 2008 [id number] 1 127 (AG) complet ed Novel influenza -[id number], injectabl e DoD influenza virus vaccine, live 2008 UNK 111 Unknown complet ed influenza virus vaccine, live 05/31/09 Given Ambulat ory Pharmac y influenza virus vaccine, live, attenuated, for intranasal use 0 2008 UNK 111 Unknown (UNK) comple t ed influenza virus vaccine, live, attenuate d, for intranasa l use DoD influenza virus vaccine, live 2007 [id number] 111 [facility] t ed influenza virus vaccine, live 05/31/08 Given Ambulat ory Pharmac y influenza virus vaccine, live, attenuated, for intranasal use 0 2007 [id number] 111 [employer] [place] (MED) complet ed influenza virus vaccine, live, attenuate d, for intranasa l use DoD influenza virus vaccine, live 2006 [id number] 111 [employer] comple t ed influenza virus vaccine, live 06/14/07 Given Ambulat ory Pharmac y influenza virus vaccine, live, attenuated, for intranasal use 0 2006 [id number] 111 [employer] [place] (MED) complet ed influenza virus vaccine, live, attenuate d, for intranasa l use DoD hepatitis A-hepatitis B vaccine 2005 [id number] complet ed hepatitis A-hepatit is B vaccine 08/28/06 Given Ambulat ory Pharmac y hepatitis A and hepatitis B vaccine 3 2005 [id number] 104 ([facility]) complet ed hepatitis A and hepatitis B vaccine DoD influenza virus vaccine, whole virus 2005 [id number] 16 sanofi pasteur complet ed influenza virus vaccine, whole virus 07/08/06 Given Ambulat ory Pharmac y influenza virus vaccine, whole virus 0 2005 [id number] 16 Sanofi Pasteur ([facility]) complet ed influenza virus vaccine, whole virus DoD influenza virus vaccine, whole virus 2004 [id number] 16 sanofi pasteur complet ed influenza virus vaccine, whole virus 07/08/05 Given Ambulat ory Pharmac y influenza virus vaccine, whole virus 0 2004 [id number] 16 Sanofi Pasteur ([facility]) complet ed influenza virus vaccine, whole virus DoD yellow fever vaccine 2003 [id number] 37 sanofi pasteur complet ed yellow fever [...] y influenza virus vaccine, whole virus 2003 [id number] 16 sanofi pasteur complet ed influenza virus vaccine, whole virus 07/25/04 Given Ambulat ory Pharmac y influenza virus vaccine, whole virus 2003 [id number] 16 sanofi pasteur complet ed influenza virus vaccine, whole virus 07/25/04 Given Ambulat ory Pharmac y vaccinia (smallpox) vaccine 2003 [id number] [employer] [facility] complet ed vaccinia (smallpox ) vaccine 07/25/04 Given Ambulat ory Pharmac y tetanus-dipht h toxoids (Td) adult/adol 2003 [id number] 09 sanofi pasteur complet ed tetanus-d iphth toxoids (Td) adult/ado l 07/25/04 Given Ambulat ory Pharmac y measles, mumps and rubella virus vaccine 1 2003 [id number] 03 Merck (MSD) complet ed measles, mumps and rubella virus vaccine DoD tetanus and diphtheria toxoids, adsorbed, preservative free, for adult use (2 Lf of tetanus toxoid and 2 Lf of diphtheria toxoid) 1 2003 [id number] 09 Sanofi Pasteur ([facility]) complet ed tetanus and diphtheri a toxoids, adsorbed, preservat dax free, for adult use (2 Lf of tetanus toxoid and 2 Lf of diphtheri a toxoid) DoD influenza virus vaccine, whole virus 0 2003 [id number] 16 Sanofi Pasteur ([facility]) complet ed influenza virus vaccine, whole virus DoD yellow fever vaccine 1 2003 [id number] 37 Sanofi Pasteur ([facility]MC) complet ed yellow fever vaccine DoD vaccinia (smallpox) vaccine 1 2003 [id number] 75 MishruthiNoah ([facility]) complet ed vaccinia (smallpox ) vaccine DoD hepatitis A and hepatitis B vaccine 2 2003 [id number] 104 ([facility]) complet ed hepatitis A and hepatitis B vaccine DoD poliovirus vaccine, inactivated 2003 [id number] 10 sanofi pasteur complet ed polioviru s vaccine, inactivat ed 06/25/04 Given Ambulat ory Pharmac y hepatitis A-hepatitis B vaccine 2003 [id number] 104 complet ed hepatitis A-hepatit is B vaccine 06/25/04 Given Ambulat ory Pharmac y meningococcal polysaccharid e (MPSV4) 2003 [id number] 32 sanofi pasteur complet ed meningoco ccal polysacch aride (MPSV4) 06/25/04 Given Ambulat ory Pharmac y poliovirus vaccine, inactivated 2003 I4273-7 10 sanofi pasteur complet ed polioviru s vaccine, inactivat ed 06/25/04 Given Ambulat ory Pharmac y poliovirus vaccine, inactivated 1 2003 B2662-2 10 Sanofi Pasteur (PMC) complet ed polioviru s vaccine, inactivat ed DoD meningococcal polysaccharid e vaccine (MPSV4) 1 2003 [id number] 32 Sanofi Pasteur ([facility]MC) complet ed meningoco ccal polysacch aride vaccine (MPSV4) DoD hepatitis A and hepatitis B vaccine 1 2003 [id number] 104 (GSK) complet ed hepatitis A [...] and ordering Hemoglobin Electrophor esis. 0055A-3 [facility] Chemistry eAvg Glucose 80 mg/dL 12/16 0055A-3 [facility] Chemistry Chol/HDL 5 mg/dL 12/16 0055A-3 [facility] Chemistry LDL/HDL 3 12/16 0055A-3 [facility] Chemistry LDL 94 mg/dL 100 - 130 12/16 L Interpretiv e Data: AGES 0-19: Desirable: < 110 mg/dL Borderline High: 110-129 mg/dL High: >/= 130 mg/dL ADULTS: Desirable: <100 mg/dL Near/above optimal: 100-130 mg/dL Borderline High: 131-159 mg/dL High: 160-189 mg/dL Very High: 190 mg/dL [address] [place] [address] Chang Chemistry Triglycerid es 226 mg/dL 7 - 149 12/16 H Interpretiv e Data: AGES 0-9: Desirable: < 75 mg/dL Borderline High: 75-99 mg/dL High: >/= 100 mg/dL AGES 10-19: Desirable: < 90 mg/dL Borderline High: 90-129 mg/dL High: >/= 130 mg/dL ADULTS: Desirable: < 150 mg/dL Borderline High: 150-199 mg/dL High: >/= 240 mg/dL Very High: >/= 500 mg/dL [address] [place] [address] Chang Chemistry HDL Cholesterol 36 mg/dL 40 - 59 12/16 L Interpretiv e Data: HDL (HIGH DENSITY LIPOPROTEIN ): ADULTS: Low: < 40 mg/dL High: >/= 60 mg/dL AGES 0 -19: Low: < 40 mg/dL Borderline Low: 40 - 45 mg/dL Acceptable: > 45 mg/dL [address] [place] [address] Chemistry Cholesterol Total 180 mg/dL 12/16 N Interpretiv e Data: According to the [place] [employer] : AGES 0-19: Desirable: < 170 mg/dL Borderline High: 170-199 mg/dL High Blood Cholesterol : >/= 200 mg/dL ADULTS: Desirable < 200 mg/dL Borderline High: 200-239 mg/dL High Blood Cholesterol : >/= 240 mg/dL [address] [place] [address] Chang Chemistry TSH 1.390 mIU/L 0.270 - [...] Prevention' s HIV diagnostic algorithm. Refer to [facility] Lab Guide for additional information : [email or web address] My [email or web address]. [facility] [place]/ [email or web address]/EPIL ab/[email or web address]/la [email or web address] x Testing performed by [employer]. 5600A-U [employer] EPILAB Chemistry AGAP 9.00 0.00 - 15.00 12/16 N 0055A-3 [facility] Chemistry Creatinine Level 0.90 mg/dL 0.72 - 1.25 12/16 N 0055A-[address] [place] [address]- Chang Chemistry Glucose Lvl 93 mg/dL 74 - 99 12/16 N 0055A-[address] [place] [address]- Chang Chemistry Potassium Lvl 4.5 mmol/L 3.5 - 5.1 12/16 N 0055A-[address] [place] [address] Chemistry Sodium 141 mmol/L 136 - 145 12/16 N 0055A-[address] [place] [address]- Chang Chemistry Chloride 109 mmol/L 98 - 107 12/16 H 0055A-3 [facility]th [facility]- [facility] Chemistry BUN 13 mg/dL 8 - 26 12/16 N 0055A-[address] [place] [address]- Chang Chemistry BUN/Creat Ratio 14 mg/dL 12 - 20 12/16 N 0055A-[address] [place] [address]- Chang Chemistry Calcium 9.5 mg/dL 8.4 - 10.2 12/16 N 0055A-[address] [place] [address]- Chang Chemistry CO2 23 mmol/L 22 - 29 12/16 N 0055A-[address] [place] [address] Chemistry Ur Microalbumi n 8 mg/L 12/16 N Interpretiv e Data: To minimize intra-indiv idual variation, analysis of three random urine samples collected over the course of a week has also been recommended . 0055A-[address] [place] [address]- Chang Hematolog y Hematocrit 44 % 40 - 49 12/16 N 0055A-[address] [place] [address]- Chang Hematolog y Hemoglobin 16.4 g/dL 13.0 - 16.3 12/16 H 0055A-[address] [place] [address]- Chang Hematolog y MCH 34 pg 28 - 33 12/16 H 0055A-3 [facility] Hematolog y MCHC 37.4 g/dL 33.0 - 36.5 12/16 H 0055A-[address] [place] [address]- Chang Hematolog y MCV 90 fL 80 - 97 12/16 N 0055A-[address] [place] [address]- Chang Hematolog y Platelets 170.0 x10^3/mc L 150.0 - 450.0103 12/16 N 0055A-[address] [place] [address] Chang Hematolog y MPV 9.4 fL 7.4 - 10.4 12/16 N 0055A-3 [facility] Hematolog y RDW 12.0 % 11.0 - 14.9 12/16 N 0055A-[address] [place] [address] Chang Hematolog y RBC 4.9 x10^6/mc L 4.0 - 5.6106 12/16 N 0055A-[address] [place] [address] Chang Hematolog y WBC 4.8 x10^3/mc L 4.0 - 11.0103 12/16 N 0055A-[address] [place] [address] Chemistry eGFR CKD EPI 111 mL/min/1 .73_m2 [...] Severe decrease <15 Kidney failure 0055A-3 [facility] Hematolog y Baso Absolute 0.0 x10^3/mc L 0.0 - 0.1103 12/16 N 0055A-3 [facility] Lymph Absolute 1.8 x10^3/mc L 1.2 - 4.0103 12/16 N 0055A-[address] [place], [place] [address] Eosinophil % Auto 3 % 0 - 5 12/16 N 0055A-[address] [place] [address] Hematolog y Lymphocyte % Auto 38.1 % 20.0 - 40.0 12/16 N 0055A-3 [facility] Hematolog y Basophil % Auto 0.4 % 0.0 - 2.5 12/16 N 0055A-3 [facility] Eos Absolute 0.1 x10^3/mc L 0.0 - 0.7103 12/16 N 0055A-[facility] Neutrophil % Auto 52.5 % 46.0 - 77.0 12/16 N 0055A-[address] [place] [address] Hematolog y Monocyte % Auto 6 % 1 - 12 12/16 N 0055A-[address] [place] [address] Hematolog y Neutro Absolute 2.5 x10^3/mc L 2.0 - 7.0103 12/16 N 0055A-[address] [place] [address] Hematolog y [place] Absolute 0.3 x10^3/mc L 0.2 - 0.8103 12/16 N 0055A-[address] [place] [address] Molecular Infectiou s Disease Bordetella pertussis Not Detected (11/16/23 8:26 AM) 11/15 N - [address] [place] [address] Molecular Infectiou s Disease Bordetella parapertuss is Not Detected (11/16/23 8:26 AM) 11/15 N 5A- [address] [place] [address] Molecular Infectiou s Disease SARS-CoV-2 PCR Not Detected 15 (11/16/23 8:26 AM) 11/15 N Interpretiv e Data: The [employer] COVID-19 Test contains three different assays (SARS-CoV-2 a, SARS-CoV-2d , SARS-CoV-2e ) for the detection of SARS-CoV-2. The [employer] interprets each of these assays independent [...] ot Detected assay results were inconclusiv e [address] [place] [address] Molecular Infectiou s Disease Reason for Test? Diagnosi s (11/16/23 8:26 AM) 11/15 N 5A-[address] [place] [address] Molecular Infectiou s Disease Adenovirus Not Detected (11/16/23 8:26 AM) 11/15 N 0055A-[address] [place] [address]- Chang Molecular Infectiou s Disease Chlamydia pneumoniae Not Detected (11/16/23 8:26 AM) 11/15 N 0055A-[address] [place] [address] Molecular Infectiou s Disease Coronavirus 229E Not Detected (11/16/23 8:26 AM) 11/15 N 0055A-[address] [place] [address] Molecular Infectiou s Disease Coronavirus HKU1 Not Detected (11/16/23 8:26 AM) 11/15 N 0055A-[address] [place] [address] Molecular Infectiou s Disease Coronavirus NL63 Not Detected (11/16/23 8:26 AM) 11/15 N 0055A-[address] [place] [address] Molecular Infectiou s Disease Coronavirus OC43 Not Detected (11/16/23 8:26 AM) 11/15 N 0055A-[address] [place] [address] Molecular Infectiou s Disease Human Metapneumov irus Detected *ABN* (11/16/23 8:26 AM) 11/15 A 0055A-[address] [place] [address] Molecular Infectiou s Disease Influenza A Not Detected (11/16/23 8:26 AM) 11/15 N 0055A-[facility] Molecular Infectiou s Disease Influenza B Not Detected (11/16/23 8:26 AM) 11/15 N 0055A-[address] [place] [address] Molecular Infectiou s Disease Mycoplasma pneumoniae Not Detected (11/16/23 8:26 AM) 11/15 N 0055A-[address] [place] [address]- Chang Molecular Infectiou s Disease Parainfluen za 1 Not Detected (11/16/23 8:26 AM) 11/15 N 0055A-[facility] Molecular Infectiou s Disease Parainfluen za 2 Not Detected (11/16/23 8:26 AM) 11/15 N 0055A-[address] [place] [address]- Chang Molecular Infectiou s Disease Parainfluen za 3 Not Detected (11/16/23 8:26 AM) 11/15 N 0055A-3 [facility] Molecular Infectiou s Disease Parainfluen za 4 Not Detected (11/16/23 8:26 AM) 11/15 N 0055A-[address] [place] [address] Molecular Infectiou s Disease Respiratory Syncytial Virus Not Detected (11/16/23 8:26 AM) 11/15 N 5A-[address] [place] [address] Molecular Infectiou s Disease Human Rhinovirus/ Enterovirus Not Detected (11/16/23 8:26 AM) 11/15 N 0055A-[address] [place] [address] Hematolog y ESR Auto Plus 6 mm/h [...] a high degree of variability . 5A-[address] [place] [address] Chemistry CRP 0.05 mg/dL 0.02 - 0.50 07/16 N 5A-[address] [place] [address] Immunolog y/Serolog y RF Qnt <13 IU/mL 07/16 N Result Comment: Below detectable range of analyzer. 5A-[address] [place] [address] Chemistry Glucose Serum LC 88 mg/dL 11/12 0421A-U [facility] Chemistry Sodium LC 139 mmol/L 11/12 0421A-U [facility] Chemistry BUN/Creatin ine Ratio LC 14 11/12 0421A-U [facility] Chemistry eGFR.LC 111 mL/min/1 .73_m2 11/12 0421A-U [facility] Creatinine Serum LC 0.91 mg/dL 11/12 0421A-U [facility] Chemistry BUN LC 13 mg/dL 11/12 0421A-U [facility] Chemistry Albumin Serum.LC 5.4 g/dL 11/12 H 0421A-U [facility] Chemistry Protein, Total, Serum.LC 7.6 g/dL 11/12 0421A-U [facility] Chemistry Calcium Total.LC 9.8 mg/dL 11/12 0421A-U [facility] Chemistry Carbon Dioxide Total LC 21 mmol/L 11/12 0421A-U [facility] Chemistry Chloride LC 101 mmol/L 11/12 0421A-U [facility] Chemistry Potassium LC 4.2 mmol/L 11/12 0421A-U [facility] Chemistry AST (SGOT) 22 [iU]/L 11/12 0421A-U [facility] Chemistry Alk Phos Isoenzyme.L C 89 [iU]/L 11/12 0421A-U [facility] Chemistry Bilirubin Total LC 0.5 mg/dL 11/12 0421A-U [facility] Chemistry A/G Ratio LC 2.5 11/12 H 0421A-U [facility] Chemistry Globulin Total LC 2.2 g/dL 11/12 0421A-U [facility] Chemistry ALT (SGPT) 32 [iU]/L 11/12 Result Comment: Performed At: [address] [facility] [address] [id number] Priscilla Jha MD Ph:[phone] 27 0421A-U [facility] Hematolog y WBC.LC 5.8 10^3/uL 11/12 0421A-U [facility] Hematolog y Hematocrit. LC 46.7 % 11/12 0421A-U [facility] Hematolog y Hemoglobin. LC 16.7 g/dL 11/12 0421A-U [facility] Hematolog y RBC Count.LC 4.96 10^6/uL 11/12 0421A-U [facility] Hematolog y Platelets.L C 206 10^3/uL 11/12 0421A-U [facility] Hematolog y RDW.LC 13.0 % 11/12 0421A-U [facility] Hematolog y MCHC.LC 35.8 g/dL 11/12 H 0421A-U [facility] Hematolog y MCH.LC 33.7 pg 11/12 H 0421A-U [facility] Hematolog y MCV.LC 94 fL 11/12 0421A-U [facility] Hematolog y Neutrophils (Abs).LC 3.5 10^3/uL 11/12 0421A-U [facility] Hematolog y Basos.LC 0 % 11/12 0421A-U [facility] Hematolog y Eos.LC 2 % 11/12 0421A-U [facility] Hematolog y Monocytes.L C 6 % 11/12 0421A-U [facility] Hematolog y Lymphs.LC 32 % 11/12 0421A-U [facility] Hematolog y Neutrophils .LC 60 % 11/12 0421A-U [facility] Hematolog y Immature Granulocyte s.LC 0 % 11/12 0421A-U [facility] Hematolog y Basos (Abs).LC 0.0 10^3/uL 11/12 0421A-U [facility] Hematolog y Eos (Abs).LC 0.1 10^3/uL 11/12 0421A-U [facility] Hematolog y Monocytes (Abs).LC 0.3 10^3/uL 11/12 0421A-U [facility] Hematolog y Lymphs (Abs).LC 1.9 10^3/uL 11/12 0421A-U [facility] Hematolog y Immature Grans (Abs).LC 0.0 10^3/uL 11/12 Result Comment: Performed At: [address] [facility] [address] [place], [place] [id number] Priscilla Jha MD Ph:[phone] 27 0421A-U [facility] Infectiou s Disease Source of Test.LC Phys Exam (11/12/21 2:03 PM) 11/12 N 0421A-U [facility] Infectiou s Disease HIV-1/2 AG/AB 4G CDD LC NEGATIVE 11/12 Result Comment: Performed At: 1 [facility] [address] [facility] [address] [place] [address] MAREK RODRIGUEZ PHD Ph:[phone] 63 0421A-U [facility] Vital Signs Combined list of inpatient and [...] Peripheral Pulse Rate 84 bpm 09/28/2024 19:11:00 0692O-Fy-O-[facility] Mean Arterial Pressure, Calc 88 mm[Hg] 09/28/2024 19:11:00 0942H-Sk-W-[facility] Blood Pressure Manual Automatic 09/28/2024 19:11:00 1063C-Vt-Y-[facility] Systolic Blood Pressure 115 mm[Hg] 09/28/2024 19:11:00 3950L-Zd-U-[facility] Diastolic Blood Pressure 75 mm[Hg] 09/28/2024 19:11:00 7768K-Ku-E-[facility] Blood Pressure Manual Automatic 02/07/2024 18:32:00 [...] ADM Date DC Date Status Disposition Source [address] [place] [address] Chang [facility] rior Op Med Cln Tm A Ad) TELE CONSULT [id number] 1 Notes Entered by: ANTON VILLAGOMEZ 03 Mar 2022 0743 ------- ------- ------- ------- -- Sx-Back and knee pain/WO OSLEY/5 86.219. [id number] TARA CALDERON 03/03 Referred for Appointment [address] [place] [address] [facility])(W arrior Op Med Cln Tm A Ad) [address] [place] [address] [facility])( rior Op Med Cln Tm A Ad) OUTPATIENT [id number] Back and knee pain CESIA OSULLIVAN 03/06 Released w/o Limitations [address] [place] [address] [facility])(W arrior Op Med Cln Tm A Ad) [address] [place] [address])(War rior Op Med Cln Tm A Ad) TELE CONSULT [id number] Notes Entered by: ASHLEY ROMERO 06 Apr 2022 1107 ------- ------- ------- ------- -- Appt Andres / Alyssa kingsley/ ELFEGO HERNANDEZ 04/06 Immediate Referral [address] [place] [address])(W arrior Op Med Cln Tm A Ad) [address] [place] [address])(War rior Op Med Cln Tm A Ad) OUTPATIENT [id number] F2F - Lump under armpit- [id number] DAVE SANFORD 04/15 Released w/o Limitations [address] [place] [address])(W arrior Op Med Cln Tm A Ad) [address] [place] [address])(War rior Op Med Cln Tm A Ad) TELE CONSULT [id number] Notes Entered by: BRIGIDA SANFORD 17 Apr 2022 1216 ------- ------- ------- ------- -- Clinic follow up DAVE SANFORD 04/[address] [place] [address])(W arrior Op Med Cln Tm A Ad) [address] [place] [address])(War rior Op Med Cln Tm A Ad) OUTPATIENT [id number] F2F- lower back pain, DAVE SANFORD 06/30 Released w/o Limitations [address] [place] [address])(W arrior Op Med Cln Tm A Ad) [address] [place] [address])(Phy sical Therapy) OUTPATIENT [id number] Low back pain, unspeci judah CARDONA TAMARA G 07/27 Released w/o Limitations [address] [place] [address])(P hysical Therapy ) [address] [place] [address])(War rior Op Med Cln Tm A Ad) TELE CONSULT [id number] Notes Entered by: EMILIE STEEL 05 Aug 2022 1559 ------- ------- ------- ------- -- Network results Endocri nology 022 HLW SANDRA JOHNSON CAPT 08/[address] [place] [address] Chang [facility])(W arrior Op Med Cln Tm A Ad) [address] [place] [address] [facility])(Phy sical Therapy) OUTPATIENT [id number] BACK PAIN TAMARA CARDONA 08/12 Released w/o Limitations [address] [place] [address] [facility] ([facility])(P hysical Therapy ) [address] [place] [address] Chang [facility])(Phy sical Therapy) OUTPATIENT [id number] back pain TAMARA CARDONA 09/04 Released w/o Limitations [address] [place] [address] ([facility])(P hysical Therapy ) [address] [place] [address])(War rior Op Med Cln Tm A Ad) OUTPATIENT [id number] F2F - pain in stomach and knees, SANDRA JOHNSON CAPT 09/22 Released with Work/Duty Limitations [address] [place] [address] Chang [facility])(W arrior Op Med Cln Tm A Ad) [address] [place] [address] Chang [facility])(War rior Op Med Cln Tm A Ad) TELE CONSULT [id number] Notes Entered by: Virginia ARMAS 02 Oct 2022 1517 ------- ------- ------- ------- -- SX: Thyroid Nodules Painful /Johnson/ IRINA GLORIA 10/02 Referred for Appointment [address] [place] [address] Chang [facility])(W arrior Op Med Cln Tm A Ad) [address] [place] [address] Chang [facility])(War rior Op Med Cln Tm A Ad) OUTPATIENT [id number] FTF LEFT ESOPHAG EAL NODULE PAIN W MINOR SOB W CORRY SOLIS 10/05 Released w/o Limitations [address] [place] [address] [facility])(W arrior Op Med Cln Tm A Ad) [facility] ([facility])(Phy sical Therapy) OUTPATIENT [id number] TAMARA CARDONA 10/06 Released w/o Limitations [facility] [place] ([facility])(P hysical Therapy ) [facility] [place] ([facility])(Phy sical Therapy) OUTPATIENT [id number] back pain TAMARA CARDONA 10/27 Released w/o Limitations [facility] [place] ([facility])(P hysical Therapy ) [facility] [place] ([facility])(War rior Op Med Cln Tm A Ad) OUTPATIENT [id number] [facility] . ARTURO JOHNSON 11/03 Released w/o Limitations [facility] [place] ([facility])(W arrior Op Med Cln Tm A Ad) [facility] [place] ([facility])(Phy sical Therapy) OUTPATIENT [id number] back pain TAMARA CARDONA 11/20 Released w/o Limitations [facility] [place] ([facility])(P hysical Therapy ) [facility])(Sco tt [facility] FAMRES Tm Blue) TELE CONSULT [id number] Notes Entered by: CAIN WONG 24 Nov 2022 0925 ------- ------- ------- ------- -- Network results Gastroe carlos gy 023 AMA CATHERINE 11/24 Released to [facility])(S cott [facility] FAMRES Tm Blue) [facility])(War rior Op Med Cln Tm A Ad) OUTPATIENT [id number] F2F - follow up appoint [facility] ARTURO JOHNSON 11/27 Released w/o Limitations [facility] [place] ([facility])(W arrior Op Med Cln Tm A Ad) [facility])(War rior Op Med Cln Tm A Ad) TELE CONSULT [id number] Notes Entered by: ARTURO JOHNSON 16 Dec 2022 1536 ------- ------- ------- ------- -- Radiolo gy Results - ARTURO JOHNSON 12/[address] [place] [address])(W arrior Op Med Cln Tm A Ad) [address] [place] [address])(War rior Op Med Cln Tm A Ad) TELE CONSULT [id number] Notes Entered by: VA BECERRA 18 Dec 2022 0843 ------- ------- ------- ------- -- Medicat ion is discont inued needs another MAYA JOHNSONPRANAV CARSON 12/[address] [place] [address])(W arrior Op Med Cln Tm A Ad) [address] [place] [address])(Aud iology Procedure s) OUTPATIENT [id number] Notes Entered by: Alcon DE LEON 18 Dec 2022 0905 ------- ------- ------- ------- -- [facility] KARINE DE LEON 12/18 Released w/o Limitations [address] [place] [address])(A udiolog y Procedu res) [address] [place] [address])(War rior Op Med Cln Tm A Ad) TELE CONSULT [id number] Notes Entered by: KRISTAL BARGER 06 Jan 2023 1302 ------- ------- ------- ------- -- SX Stomach Pain / Johnson / IRINA GLORIA 01/06 Referred for Appointment [address] [place] [address])(W arrior Op Med Cln Tm A Ad) [address] [place] [address])(War rior Op Med Cln Tm A Ad) OUTPATIENT [id number] lower abdomin al pain/ more from CHANELL Prado 01/07 Released w/o Limitations [address] [place] [address] [facility])(W arrior Op Med Cln Tm A Ad) [address] [place] [address] Chang [facility])(Phy sical Therapy) OUTPATIENT [id number] f/u back TAMARA CARDONA 01/07 Released w/o Limitations [address] [place] [address] [facility] ([facility])(P hysical Therapy ) [address] [place] [address] Chang [facility])(War rior Op Med Cln Tm A Ad) TELE CONSULT [id number] Notes Entered by: BETHANY LALA 21 Jan 2023 0746 ------- ------- ------- ------- -- Lab and imaging results CHANELL ARAYA 01/[address] [place] [address] [facility])(W arrior Op Med Cln Tm A Ad) [id number]-375 th [facility] [id number] MARGARET SEBASTIANOPF 11/16 Discharge Disposition: Home or Self Care [facility] 0055C-375 th [facility] [id number] Anxiety disorde r, unspeci fied JASONSIMMO NS 12/19 Discharge Disposition: Home or Self Care 5C-3 [address] [facility] 0055C-375 [address] [facility] [id number] Low back pain, unspeci fied JASONSIMMO NS 12/26 Discharge Disposition: Home or Self Care 0055C-[facility]- [facility] 0055A-375 th [facility] Outpatient [id number] CESIA LEE 12/26 Discharge Disposition: Home or Self Care 0055A-3 [address] [facility]- [facility] 0055C-375 th [facility] Between Visit [id number] 12/27 Discharge Disposition: Home or Self Care [facility] Procedures Combined list of: 1) [...] 1 OR MORE AREAS; TRACTION, MECHANICAL 3 [facility] UNLISTED MODALITY (SPECIFY TYPE AND TIME IF CONSTANT ATTENDANCE) 2 [facility] MANUAL THERAPY TECHNIQUES (EG, MOBILIZATION/ MANIPULATION, MANUAL LYMPHATIC DRAINAGE, MANUAL TRACTION), 1 OR MORE REGIONS, EACH 15 MINUTES 2 [facility] TELE ASSESS & MGT SRV PROV QUAL [...] 24 HR/SOON APT;5-10 MIN MED DIS 2 [facility] Non-Physician Phone Call To Patient/Provider Brief (5-10min) Non-Physician Phone Call To Patient/Provider Brief (5-10min) [id number] TARA CALDERON [facility] Non-Physician Phone Call To Pt/Provider Intermed (11-20 min) Non-Physician Phone Call To Pt/Provider Intermed (11-20 min) [id number] ELFEGO HERNANDEZ [facility] Mobilization Soft Ti ue Mobilization Soft Tissue 40566 TAMARA CARDONA Modalities - Unlisted Modality Modalities - Unlisted Modality 64801 TAMARA CARDONA Physical Medicine Physical Therapy Re-Evaluation Physical Medicine Physical Therapy Re-Evaluation 80760 TAMARA CARDONA [facility] Brief communication technology-based service, e.g. 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 Social History Type Response Date Comment Sourc e Sex Representation Male (finding) 04/08/2021 Un known Organization This section is an empty social history section. [facility] Tobacco Cigarette use: Former-cigarette user. *Stopped cigarettes [...] Source Assessment and Plan Extracted from:Title : [facility] LBP Author: CESIA OSULLIVAN PA Date: [...] with restrictions Maj Diego Osullivan BSC, PAChristianoC [facility] ([facility]) [place] Please note that this dictation was completed with computer voice recognition software, [employer]. Quite often unanticipated grammatical, syntax, homophones, and other interpretive errors are inadvertently transcribed by the computer software. Please disregard these errors and excuse any errors that have escaped final proofreading. If are any questions regarding documentation, please contact this provider directly. Extracted from:Title: [facility] Anxiety Author: CESIA OSULLIVAN PA Date: [...] 60 tab(s), 0 total refill(s), Maintenance, Pharmacy: [facility] #[id number] [External Rx] sertraline(Zoloft 100 mg oral tablet), 1 tab(s), Oral, Daily, # 60 tab(s), 0 total refill(s), Maintenance, Pharmacy: [facility] #[id number] [External Rx] The patient (is) World Wide Qualified. AM Dispo: Non-Fly Cleared for AFSC/MOS Duties: Y es Cleared for continued service: Yes Cleared for mobility duties: Yes Cleared for participation in physical fitness program: Yes Maj Diego Osullivan BSC, PAChristianoC [facility] ([facility]) [place] Please note that this dictation was completed with computer voice recognition software, [employer]. Quite often unanticipated grammatical, syntax, homophones, and other interpretive errors are inadvertently transcribed by the computer software. Please disregard these errors and excuse any errors that have escaped final proofreading. If are any questions regarding documentation, please contact this provider directly. Extracted from:Title: [facility] Anxiety Author: CESIA OSULLIVAN PA Date: [...] 0 total refill(s), Maintenance, 42 days, Pharmacy: [facility] #[id number] [External Rx] 2. E ssential hypertension Est [...] 90 tab(s), 3 total refill(s), Maintenance, Pharmacy: [facility] #[id number] [External Rx] Basic Metabolic Panel Microalbumin Panel, Urine The patient (is) World Wide Qualified. AM Dispo: Non-Fly Cleared for AFSC/MOS Duties: Y es Cleared for continued service: Yes Cleared for mobility duties: Yes Cleared for participation in physical fitness program: Yes EPIFANIO ArceoC, PA-C [facility] ([facility]) [place] Please note that this dictation was completed with computer voice recognition software, [employer]. Quite often unanticipated grammatical, syntax, homophones, and other interpretive errors are inadvertently transcribed by the computer software. Please disregard these errors and excuse any errors that have escaped final proofreading. If are any questions regarding documentation, please contact this provider directly. 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 I have reviewed the note and agree with the findings, assessment, and plan except as I have documented below. Follow up as listed. All labs/imaging/consults to be followed by the ordering provider. Capt Badillo DO, [employer], Staff Physician Extracted from:Title: [facility] - Virtual MHA/PHA Author: MC NEAL MD Date: 09/21/24 1. 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 IMR Status: R ED D ental Class 3 , s cheduled October 31. ? Arming Status: S ervice member does not arm Additional concerns: Sister food service cashier, routine annual PHA [id number] DRC3, UTD. [id number] HIV, UTD. Reviewed food service cashier's completed PHA record review and IMR status. MHA completed and copied to this record. 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 A dc recent medication changes and/or concerns will n eed to be addressed by PCM team. [facility] 0min. PHA completed and ASIMS updated. Any retention a nd/or readiness issues identified while conducting the PHA have been communicated to PCM via Mary Lou. field artillery crewmember to follow up with iain west PCM for all other c oncerns. //SIGNED// MC NEAL, Col, [employer], MC, FS Family Physician/Flight Surgeon [address] [facility] [place] (P) [phone] 2. A nxiety M ember with anxiety/depression, [...] with PCM and MH as needed NATALEE [id number] Extracted from:Title: [facility] Back pain Author: BHARATHI HERNANDEZ PA [...] 30 tab(s), 0 total refill(s), Acute, Pharmacy: [facility] [Not filled] Referral Request 2.0 - [facility] 2. L ow back pain Pt reports [...] 30 tab(s), 0 total refill(s), Acute, Pharmacy: [facility] [Not filled] Referral Request 2.0 - [facility] Medications reconciled. Pt verbalized understanding and agreement. BHARATHI HERNANDEZ, 1st Lt, PA-C [facility] [place] [address] Extracted from:Title: [facility] - mass of R wrist Author: LORI ANTOINE MD Date: 07/26/24 1. M ass of wrist Chronic, 6 mths. P ain w/ certain activities. No red flags on exam. Suspect ganglion cyst most likely v lipoma. - US for further characterization - If cystic, will refer to [facility] proc clinic for tx - If lipomatous, will refer to hand surgeon - Advised against trauma to tx (hitting w/ a bible or heavy book) - F/u pending US results, will contact pt once results Ordered: US Superficial Extremity Lori Antoine MD, RENETTA, MPH PGY-3, Family Medicine Captain, [facility], [place], [place] Extracted from:Title: [facility] URI Author: JOE KATZ, Date: 07/25/24 [...] Joe Katz DO, , BRUNA, Family Physician [facility]/Pipe Threader [facility] Family [facility] Residency Program in [place], [place] [address] [address] Extracted from:Title: [facility] - Low back/hip pain Author: OSMAR [...] overdue items) Osmar Perez DO, , [employer], Operations Staff Specialist Security [address] [facility], [place] Extracted from:Title: CHIRO [...] Px 1/> Areas Each 15 Minutes Massage 04180; 11/22/2023 14:31:00 CDT, 10 b y ENRIKE VILLASENOR DC ? Therapeutic Px 1/> Areas Each 15 Min Exercises 14017; 11/22/2023 14:31:00 CDT, 10 ? 95544 - Clinic New Level 3; 11/22/2023 14:31:00 CDT, 25 ? Manual Therapy Tqs 1/> Regions Each 15 Minutes 62325; 11/22/2023 14:31:00 CDT, 59 ? Chiropractic Manipulative Tx Spinal 1-2 Regions 44608; 11/22/2023 14:31:00 CDT, AT D iagnosis: 2 . S acroiliac joint somatic dysfunction Comment: C hiropractic Diversified Adjustments Prone T/S S enrico posture to Ilium, SI and L/S A T Ordered: [address] [place] [address] Level 3; 11/22/2023 14:31:00 CDT, 25 ENRIKE Núñez DC ? Chiropractic Manipulative Tx Spinal 1-2 Regions 14871; 11/22/2023 14:31:00 CDT, AT D iagnosis: 3 . T horacic segmental dysfunction Comment: C hiropractic Diversified Adjustments Prone T/S S enrico posture to Ilium, SI and L/S A T Ordered: [address] [place] [address] Level 3; 11/22/2023 14:31:00 CDT, 25 b y ENRIKE VILLASENOR DC ? Chiropractic Manipulative Tx Spinal 1-2 Regions 36026; 11/22/2023 14:31:00 CDT, AT D iagnosis: 4 . L umbar segmental dysfunction Comment: C hiropractic Diversified Adjustments Prone T/S S enrico posture to Ilium, SI and L/S A T Ordered: [address] [place] [address] Level 3; 11/22/2023 14:31:00 CDT, 25 b ENRIKE Burgos DC ? Chiropractic Manipulative Tx Spinal 1-2 Regions 70074; 11/22/2023 14:31:00 CDT, AT Diagnosis of S [...] and all questions were answered. Ileana Ricardo [facility] of Chiropractic E xtern, assisted hDeeraj [facility] patient care. //SIGNED// Dr. Enrike Villasenor DC, RMSK Chiropractic Physician [address] [facility] [facility] Read[facility] Chang [facility] Main Line DSN/Comm: [phone] / [phone] 11/22/23 15:19:08 Extracted from:Title: Ambulatory Patient Education [...] to any changes in your nodule. Take rhix-cym-yeubenk and prescription medicines only as told by [...] 07/09/2005 Document Revised: 04/03/2019 Document Reviewed: 04/03/2019 [employer] Patient Education 2019 [employer] Future Scheduled TestsLaboratoryMicroalbumin Panel, Urine 11/02/24Basic Metabolic Panel 11/02/24 01/03/2025 0055C[facility] Assessment and Plan Extracted from:Title : [facility] LBP Author: CESIA OSULLIVAN PA Date: [...] with restrictions Maj Diego Osullivan BSC, PAChristianoC [facility] ([facility]) [place] Please note that this dictation was completed with computer voice recognition software, [employer]. Quite often unanticipated grammatical, syntax, homophones, and other interpretive errors are inadvertently transcribed by the computer software. Please disregard these errors and excuse any errors that have escaped final proofreading. If are any questions regarding documentation, please contact this provider directly. Extracted from:Title: [facility] Anxiety Author: CESIA OSULLIVAN PA Date: [...] 60 tab(s), 0 total refill(s), Maintenance, Pharmacy: [facility] #[id number] [External Rx] sertraline(Zoloft 100 mg oral tablet), 1 tab(s), Oral, Daily, # 60 tab(s), 0 total refill(s), Maintenance, Pharmacy: [facility] #[id number] [External Rx] The patient (is) World Wide Qualified. AM Dispo: Non-Fly Cleared for AFSC/MOS Duties: Y es Cleared for continued service: Yes Cleared for mobility duties: Yes Cleared for participation in physical fitness program: Yes Maj Diego Osullivan BSC, PA-C [facility] ([facility]) [place] Please note that this dictation was completed with computer voice recognition software, [employer]. Quite often unanticipated grammatical, syntax, homophones, and other interpretive errors are inadvertently transcribed by the computer software. Please disregard these errors and excuse any errors that have escaped final proofreading. If are any questions regarding documentation, please contact this provider directly. Extracted from:Title: [facility] Anxiety Author: CESIA OSULLIVAN PA Date: [...] 0 total refill(s), Maintenance, 42 days, Pharmacy: [facility] #[id number] [External Rx] 2. E ssential hypertension Est [...] 90 tab(s), 3 total refill(s), Maintenance, Pharmacy: [facility] #[id number] [External Rx] Basic Metabolic Panel Microalbumin Panel, Urine The patient (is) World Wide Qualified. AM Dispo: Non-Fly Cleared for AFSC/MOS Duties: Y es Cleared for continued service: Yes Cleared for mobility duties: Yes Cleared for participation in physical fitness program: Yes Maj Diego Osullivan, BSBeba, PA-C [facility] ([facility]) [place] Please note that this dictation was completed with computer voice recognition software, [employer]. Quite often unanticipated grammatical, syntax, homophones, and other interpretive errors are inadvertently transcribed by the computer software. Please disregard these errors and excuse any errors that have escaped final proofreading. If are any questions regarding documentation, please contact this provider directly. 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 I have reviewed the note and agree with the findings, assessment, and plan except as I have documented below. Follow up as listed. All labs/imaging/consults to be followed by the ordering provider. Corry Hussein DO, , [facility], Staff Physician Extracted from:Title: [facility] - Virtual MHA/PHA Author: MC NEAL MD Date: 09/21/24 1. 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 IMR Status: R ED D ental Class 3 , s cheduled October 31. ? Arming Status: S ervice member does not arm Additional concerns: Sister food service cashier, routine annual PHA [id number] DRC3, UTD. [id number] HIV, UTD. Reviewed food service cashier's completed PHA record review and IMR status. MHA completed and copied to this record. 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 A dc recent medication changes and/or concerns will n eed to be addressed by PCM team. [facility] PHA completed and ASIMS updated. Any retention a nd/or readiness issues identified while conducting the PHA have been communicated to PCM via Mary Lou. field artillery crewmember to follow up with [facility] PCM for all other c oncerns. //SIGNED// MC NEAL, Lt Johnson, CHARLIE, ROD, FS Family Physician/Flight Surgeon 375 OMRS/SGXF [facility] [employer] (P) 2. A nxiety [...] with PCM and MH as needed NATALEE [id number] Extracted from:Title: [facility] Back pain Author: BHARATHI HERNANDEZ PA [...] 30 tab(s), 0 total refill(s), Acute, Pharmacy: [facility] [Not filled] Referral Request 2.0 - [facility] 2. L ow back pain Pt reports [...] 30 tab(s), 0 total refill(s), Acute, Pharmacy: [facility] [Not filled] Referral Request 2.0 - [facility] Medications reconciled. Pt verbalized understanding and agreement. BHARATHI HERNANDEZ, 1st Lt, PA-C [facility] Medicine [place] [address] Extracted from:Title: [facility] - mass of R wrist Author: LORI ANTOINE MD Date: 07/26/24 1. M ass of wrist Chronic, 6 mths. P ain w/ certain activities. No red flags on exam. Suspect ganglion cyst most likely v lipoma. - US for further characterization - If cystic, will refer to [facility] proc clinic for tx - If lipomatous, will refer to hand surgeon - Advised against trauma to tx (hitting w/ a bible or heavy book) - F/u pending US results, will contact pt once results Ordered: US Superficial Extremity Lori Antoine MD, RENETTA, MPH PGY-3, Family Medicine CHARLIE Young, [place] Extracted from:Title: [facility] URI Author: JOE KATZ DO Date: [...] work. Capt Aguilar DO, [employer] Family Physician [facility]/Pipe Threader [facility] Medicine Residency Program in [place], [place] [address] [address] Extracted from:Title: [facility] - Low back/hip pain Author: OSMAR [...] addressed overdue items) Osmar Perez DO, Sergio, [facility], Operations Staff Specialist Security [address], [place] Extracted from:Title: CHIRO [...] Px 1/> Areas Each 15 Minutes Massage 89515; 11/22/2023 14:31:00 CDT, 10 b ENRIKE Burgos DC ? Therapeutic Px 1/> Areas Each 15 Min Exercises 07034; 11/22/2023 14:31:00 CDT, 10 ? 53612 - Clinic New Level 3; 11/22/2023 14:31:00 CDT, 25 ? Manual Therapy Tqs 1/> Regions Each 15 Minutes 81420; 11/22/2023 14:31:00 CDT, 59 ? Chiropractic Manipulative Tx Spinal 1-2 Regions 81421; 11/22/2023 14:31:00 CDT, AT D iagnosis: 2 . S acroiliac joint somatic dysfunction Comment: C hiropractic Diversified Adjustments Prone T/S S enrico posture to Ilium, SI and L/S A T Ordered: [id number] - Clinic New Level 3; 11/22/2023 14:31:00 CDT, 25 b y ENRIKE VILLASENOR DC ? Chiropractic Manipulative Tx Spinal 1-2 Regions 58466; 11/22/2023 14:31:00 CDT, AT D iagnosis: 3 . T horacic segmental dysfunction Comment: C hiropractic Diversified Adjustments Prone T/S S enrico posture to Ilium, SI and L/S A T Ordered: [id number] - Clinic New Level 3; 11/22/2023 14:31:00 CDT, 25 b y ENRIKE VILLASENOR DC ? Chiropractic Manipulative Tx Spinal 1-2 Regions 06659; 11/22/2023 14:31:00 CDT, AT D iagnosis: 4 . L umbar segmental dysfunction Comment: C hiropractic Diversified Adjustments Prone T/S S enrico posture to Ilium, SI and L/S A T Ordered: [id number] - Clinic New Level 3; 11/22/2023 14:31:00 CDT, 25 b y ENRIKE VILLASENOR DC ? Chiropractic Manipulative Tx Spinal 1-2 Regions 95908; 11/22/2023 14:31:00 CDT, AT Diagnosis of S [...] and all questions were answered. Ileana Ricardo [facility]ic E xtern, assisted Dheeraj Villasenor [facility] patient care. //SIGNED// Dr. Enrike Villasenor DC, RMSK Chiropractic Physician [address] [employer] [facility] DSN/Comm: [phone] / [phone] 11/22/23 15:19:08 Extracted from:Title: Ambulatory Patient Education [...] to any changes in your nodule. Take apuu-svm-oahtwgu and prescription medicines only as told by [...] 07/09/2005 Document Revised: 04/03/2019 Document Reviewed: 04/03/2019 Expect [facility] Interactive Patient Education 2019 [employer] Interactive. Future Scheduled TestsLaboratoryMicroalbumin Panel, Urine 11/02/24Basic Metabolic Panel 11/02/24 01/03/2025 [id number] [facility] and Plan Extracted from:Title : [facility] LBP Author: CESIA OSULLIVAN PA Date: [...] with restrictions Maj Diego Osullivan, NELSON, PAChristianoC [facility] ([facility]) [place] Please note that this dictation was completed with computer voice recognition software, [employer]. Quite often unanticipated grammatical, syntax, homophones, and other interpretive errors are inadvertently transcribed by the computer software. Please disregard these errors and excuse any errors that have escaped final proofreading. If are any questions regarding documentation, please contact this provider directly. Extracted from:Title: [facility] Anxiety Author: CESIA OSULLIVAN PA Date: [...] 60 tab(s), 0 total refill(s), Maintenance, Pharmacy: [facility] #[id number] [External Rx] sertraline(Zoloft 100 mg oral tablet), 1 tab(s), Oral, Daily, # 60 tab(s), 0 total refill(s), Maintenance, Pharmacy: [facility] #[id number] [External Rx] The patient (is) World Wide Qualified. AM Dispo: Non-Fly Cleared for AFSC/MOS Duties: Y es Cleared for continued service: Yes Cleared for mobility duties: Yes Cleared for participation in physical fitness program: Yes Maj Diego Osullivan, BSBeba, PAChristianoC [facility] ([facility]) [place] Please note that this dictation was completed with computer voice recognition software, [employer]. Quite often unanticipated grammatical, syntax, homophones, and other interpretive errors are inadvertently transcribed by the computer software. Please disregard these errors and excuse any errors that have escaped final proofreading. If are any questions regarding documentation, please contact this provider directly. Extracted from:Title: [facility] Anxiety Author: CESIA OSULLIVAN PA Date: [...] 0 total refill(s), Maintenance, 42 days, Pharmacy: [facility] #[id number] [External Rx] 2. E ssential hypertension Est [...] 90 tab(s), 3 total refill(s), Maintenance, Pharmacy: [facility] #[id number] [External Rx] Basic Metabolic Panel Microalbumin Panel, Urine The patient (is) World Wide Qualified. AM Dispo: Non-Fly Cleared for AFSC/MOS Duties: Y es Cleared for continued service: Yes Cleared for mobility duties: Yes Cleared for participation in physical fitness program: Yes Maj Diego Osullivan, BSC, PA-C [facility] ([facility]) [place] Please note that this dictation was completed with computer voice recognition software, [employer]. Quite often unanticipated grammatical, syntax, homophones, and other interpretive errors are inadvertently transcribed by the computer software. Please disregard these errors and excuse any errors that have escaped final proofreading. If are any questions regarding documentation, please contact this provider directly. 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 I have reviewed the note and agree with the findings, assessment, and plan except as I have documented below. Follow up as listed. All labs/imaging/consults to be followed by the ordering provider. Capt Badillo DO, [employer], Staff Physician Extracted from:Title: [facility] - Virtual MHA/PHA Author: MC NEAL MD Date: 09/21/24 1. 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 IMR Status: R ED D ental Class 3 , s cheduled October 31. ? Arming Status: S ervice member does not arm Additional concerns: Sister food service cashier, routine annual PHA [id number] DRC3, UTD. [id number] HIV, UTD. Reviewed food service cashier's completed PHA record review and IMR status. MHA completed and copied to this record. 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 A dc recent medication changes and/or concerns will n eed to be addressed by PCM team. [facility] PHA completed and ASIMS updated. Any retention a nd/or readiness issues identified while conducting the PHA have been communicated to PCM via Mary Lou. field artillery crewmember to follow up with iain [place] PCM for all other c oncerns. //SIGNED// MC NEAL, Lt Johnson, [employer], MC, FS Family Physician/Flight Surgeon 375 OMRS/SGXF [facility] [place] (P) 2. A nxiety [...] with PCM and MH as needed NATALEE [id number] Extracted from:Title: [facility] Back pain Author: BHARATHI HERNANDEZ PA [...] 30 tab(s), 0 total refill(s), Acute, Pharmacy: [facility] [Not filled] Referral Request 2.0 - [facility] 2. L ow back pain Pt reports [...] 30 tab(s), 0 total refill(s), Acute, Pharmacy: [facility] [Not filled] Referral Request 2.0 - [facility] Medications reconciled. Pt verbalized understanding and agreement. BHARATHI HERNANDEZ, 1st Lt, PAShahbaz [facility] [place] [address] Extracted from:Title: [facility] - mass of R wrist Author: LORI ANTOINE MD Date: 07/26/24 1. M ass of wrist Chronic, 6 mths. P ain w/ certain activities. No red flags on exam. Suspect ganglion cyst most likely v lipoma. - US for further characterization - If cystic, will refer to [facility] proc clinic for tx - If lipomatous, will refer to hand surgeon - Advised against trauma to tx (hitting w/ a bible or heavy book) - F/u pending US results, will contact pt once results Ordered: US Superficial Extremity Lori Antoine MD, RENETTA, MPH PGY-3, Family Medicine Captain, [facility], [place], [place] Extracted from:Title: [facility] URI Author: JOE KATZ DO Date: [...] Joe Katz DO, , BRUNA, Family Physician [facility]/Pipe Threader [facility] Family Medicine Residency Program in [place], [place] [address] [address] Extracted from:Title: [facility] - Low back/hip pain Author: OSMAR [...] overdue items) Osmar Perez DO, Sergio, [employer], Operations Staff Specialist Security [address], [place] Extracted from:Title: CHIRO [...] Px 1/> Areas Each 15 Minutes Massage 61048; 11/22/2023 14:31:00 CDT, 10 b y ENRIKE VILLASENOR DC ? Therapeutic Px 1/> Areas Each 15 Min Exercises 92809; 11/22/2023 14:31:00 CDT, 10 ? [facility] New Level 3; 11/22/2023 14:31:00 CDT, 25 ? Manual Therapy Tqs 1/> Regions Each 15 Minutes 09027; 11/22/2023 14:31:00 CDT, 59 ? Chiropractic Manipulative Tx Spinal 1-2 Regions 01312; 11/22/2023 14:31:00 CDT, AT D iagnosis: 2 . S acroiliac joint somatic dysfunction Comment: C hiropractic Diversified Adjustments Prone T/S S enrico posture to Ilium, SI and L/S A T Ordered: [address] [place] [address] New Level 3; 11/22/2023 14:31:00 CDT, 25 b y ENRIKE VILLASENOR DC ? Chiropractic Manipulative Tx Spinal 1-2 Regions 58873; 11/22/2023 14:31:00 CDT, AT D iagnosis: 3 . T horacic segmental dysfunction Comment: C hiropractic Diversified Adjustments Prone T/S S enrico posture to Ilium, SI and L/S A T Ordered: [address] [place] [address] New Level 3; 11/22/2023 14:31:00 CDT, 25 b y ENRIKE VILLASENOR DC ? Chiropractic Manipulative Tx Spinal 1-2 Regions 30765; 11/22/2023 14:31:00 CDT, AT D iagnosis: 4 . L umbar segmental dysfunction Comment: C hiropractic Diversified Adjustments Prone T/S S enrico posture to Ilium, SI and L/S A T Ordered: [address] [place] [address] New Level 3; 11/22/2023 14:31:00 CDT, 25 b y ENRIKE VILLASENOR DC ? Chiropractic Manipulative Tx Spinal 1-2 Regions 83230; 11/22/2023 14:31:00 CDT, AT Diagnosis of S [...] and all questions were answered. Ileana Ricardo [facility]ic [place] xtern, assisted Dheeraj Villasenor [facility] patient care. //SIGNED// Dr. Enrike Villasenor DC, RMSK Chiropractic Physician 375 Operational Medical Readiness [facility] [place] [facility] Main Line DSN/Comm: [phone] / [phone] 11/22/23 15:19:08 Extracted from:Title: Ambulatory Patient Education [...] to any changes in your nodule. Take drrb-brb-ttmrkeu and prescription medicines only as told by [...] 07/09/2005 Document Revised: 04/03/2019 Document Reviewed: 04/03/2019 Expect [facility] Interactive Patient Education 2019 Expect [employer] Inc. Future Scheduled TestsLaboratoryMicroalbumin Panel, Urine 11/02/24Basic Metabolic Panel 11/02/24 01/03/2025 [id number] [facility] Assessment and Plan Extracted from:Title : [facility] LBP Author: CESIA OSULLIVAN PA Date: [...] with restrictions Maj Diego Osullivan, BSC, PA-C [facility] ([facility]) [place] Please note that this dictation was completed with computer voice recognition software, [employer]. Quite often unanticipated grammatical, syntax, homophones, and other interpretive errors are inadvertently transcribed by the computer software. Please disregard these errors and excuse any errors that have escaped final proofreading. If are any questions regarding documentation, please contact this provider directly. Extracted from:Title: [facility] Anxiety Author: CESIA OSULLIVAN PA Date: [...] 60 tab(s), 0 total refill(s), Maintenance, Pharmacy: [facility] #[id number] [External Rx] sertraline(Zoloft 100 mg oral tablet), 1 tab(s), Oral, Daily, # 60 tab(s), 0 total refill(s), Maintenance, Pharmacy: [facility] #[id number] [External Rx] The patient (is) World Wide Qualified. AM Dispo: Non-Fly Cleared for AFSC/MOS Duties: Y es Cleared for continued service: Yes Cleared for mobility duties: Yes Cleared for participation in physical fitness program: Yes Maj Diego Osullivan, BSC, PA-C [facility] ([facility]) [place] Please note that this dictation was completed with computer voice recognition software, [employer]. Quite often unanticipated grammatical, syntax, homophones, and other interpretive errors are inadvertently transcribed by the computer software. Please disregard these errors and excuse any errors that have escaped final proofreading. If are any questions regarding documentation, please contact this provider directly. Extracted from:Title: [facility] Anxiety Author: CESIA OSULLIVAN PA Date: [...] 0 total refill(s), Maintenance, 42 days, Pharmacy: [facility] #[id number] [External Rx] 2. E ssential hypertension Est [...] 90 tab(s), 3 total refill(s), Maintenance, Pharmacy: [facility] #[id number] [External Rx] Basic Metabolic Panel Microalbumin Panel, Urine The patient (is) World Wide Qualified. AM Dispo: Non-Fly Cleared for AFSC/MOS Duties: Y es Cleared for continued service: Yes Cleared for mobility duties: Yes Cleared for participation in physical fitness program: Yes Maj Diego Osullivan, NELSON, PA-C [facility] ([facility]) [place] Please note that this dictation was completed with computer voice recognition software, [employer]. Quite often unanticipated grammatical, syntax, homophones, and other interpretive errors are inadvertently transcribed by the computer software. Please disregard these errors and excuse any errors that have escaped final proofreading. If are any questions regarding documentation, please contact this provider directly. 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 I have reviewed the note and agree with the findings, assessment, and plan except as I have documented below. Follow up as listed. All labs/imaging/consults to be followed by the ordering provider. Corry Hussein DO, , BRUNA, Staff Physician Extracted from:Title: [facility] - Virtual MHA/PHA Author: MC NEAL MD Date: 09/21/24 1. 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 IMR Status: R ED D ental Class 3 , s cheduled October 31. ? Arming Status: S ervice member does not arm Additional concerns: Sister food service cashier, routine annual PHA [id number] DRC3, UTD. [id number] HIV, UTD. Reviewed food service cashier's completed PHA record review and IMR status. MHA completed and copied to this record. 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 A dc recent medication changes and/or concerns will n eed to be addressed by PCM team. [facility] PHA completed and ASIMS updated. Any retention a nd/or readiness issues identified while conducting the PHA have been communicated to PCM via Mary Lou. field artillery crewmember to follow up with iain [place]ton PCM for all other c oncerns. //SIGNED// Lt Alex TRAN [employer], MC, FS Family Physician/Flight Surgeon 375 OMRS/SGXF [facility] [employer] (P) 2. A nxiety [...] -f/u with PCM and MH as needed [facility] [id number] Extracted from:Title: [facility] Back pain Author: BHARATHI HERNANDEZ PA [...] 30 tab(s), 0 total refill(s), Acute, Pharmacy: [facility] [Not filled] Referral Request 2.0 - [facility] 2. L ow back pain Pt reports [...] 30 tab(s), 0 total refill(s), Acute, Pharmacy: [facility] [Not filled] Referral Request 2.0 - [facility] Medications reconciled. Pt verbalized understanding and agreement. BHARATHI HERNANDEZ, 1st Lt, PAShahbaz [facility] [place] [address] Extracted from:Title: [facility] - mass of R wrist Author: LORI ANTOINE MD Date: 07/26/24 1. M ass of wrist Chronic, 6 mths. P ain w/ certain activities. No red flags on exam. Suspect ganglion cyst most likely v lipoma. - US for further characterization - If cystic, will refer to [facility] proc clinic for tx - If lipomatous, will refer to hand surgeon - Advised against trauma to tx (hitting w/ a bible or heavy book) - F/u pending US results, will contact pt once results Ordered: US Superficial Extremity Lori Antoine MD, RENETTA, MPH PGY-3, Family Medicine CHARLIE Young, [place] Extracted from:Title: [facility] URI Author: JOE KATZ DO Date: [...] work. Capt Aguilar DO, [employer] Family Physician [facility]/Pipe Threader [employer] [facility] Residency Program in [place], [place] [address] [address] Extracted from:Title: [facility] - Low back/hip pain [...] overdue items) Osmar Perez DO, Sergio, [employer], Operations Staff Specialist Security [address], [place] Extracted from:Title: CHIRO [...] Px 1/> Areas Each 15 Minutes Massage 86798; 11/22/2023 14:31:00 CDT, 10 b y ENRIKE VILLASENOR DC ? Therapeutic Px 1/> Areas Each 15 Min Exercises 71531; 11/22/2023 14:31:00 CDT, 10 ? [facility] New Level 3; 11/22/2023 14:31:00 CDT, 25 ? Manual Therapy Tqs 1/> Regions Each 15 Minutes 83479; 11/22/2023 14:31:00 CDT, 59 ? Chiropractic Manipulative Tx Spinal 1-2 Regions 36354; 11/22/2023 14:31:00 CDT, AT D iagnosis: 2 . S acroiliac joint somatic dysfunction Comment: C hiropractic Diversified Adjustments Prone T/S S enrico posture to Ilium, SI and L/S A T Ordered: 10956 - Clinic New Level 3; 11/22/2023 14:31:00 CDT, 25 b y ENRIKE VILLASENOR DC ? Chiropractic Manipulative Tx Spinal 1-2 Regions 89370; 11/22/2023 14:31:00 CDT, AT D iagnosis: 3 . T horacic segmental dysfunction Comment: C hiropractic Diversified Adjustments Prone T/S S enrico posture to Ilium, SI and L/S A T Ordered: 76898 - Clinic New Level 3; 11/22/2023 14:31:00 CDT, 25 b y ENRIKE VILLASENOR DC ? Chiropractic Manipulative Tx Spinal 1-2 Regions 12482; 11/22/2023 14:31:00 CDT, AT D iagnosis: 4 . L umbar segmental dysfunction Comment: C hiropractic Diversified Adjustments Prone T/S S enrico posture to Ilium, SI and L/S A T Ordered: 03459 - Clinic New Level 3; 11/22/2023 14:31:00 CDT, 25 b y ENRIKE VILLASENOR DC ? Chiropractic Manipulative Tx Spinal 1-2 Regions 84232; 11/22/2023 14:31:00 CDT, AT Diagnosis of S [...] and all questions were answered. Ileana Ricardo [facility]ic [place], assisted Dheeraj vill[facility] patient care. //SIGNED// Dr. Enrike Villasenor, JOSE, RMSK Chiropractic Physician 375 Operational Medical Readiness [facility] Main Line DSN/Comm: [phone] / [phone] 11/22/23 15:19:08 Extracted from:Title: Ambulatory Patient Education [...] to any changes in your nodule. Take ygrj-put-rjgypcj and prescription medicines only as told by [...] 07/09/2005 Document Revised: 04/03/2019 Document Reviewed: 04/03/2019 Expect [facility] Interactive Patient Education 2019 [employer]. Future Scheduled TestsLaboratoryMicroalbumin Panel, Urine 11/02/24Basic Metabolic Panel 11/02/24 01/03/2025 [id number] Assessment and Plan Extracted from:Title : [facility] LBP Author: CESIA OSULLIVAN PA Date: [...] with restrictions Maj Diego Osullivan BSC, PAChristianoC [facility] ([facility]) [place] Please note that this dictation was completed with computer voice recognition software, [employer]. Quite often unanticipated grammatical, syntax, homophones, and other interpretive errors are inadvertently transcribed by the computer software. Please disregard these errors and excuse any errors that have escaped final proofreading. If are any questions regarding documentation, please contact this provider directly. Extracted from:Title: [facility] Anxiety Author: CESIA OSULLIVAN PA Date: [...] 60 tab(s), 0 total refill(s), Maintenance, Pharmacy: [facility] #[id number] [External Rx] sertraline(Zoloft 100 mg oral tablet), 1 tab(s), Oral, Daily, # 60 tab(s), 0 total refill(s), Maintenance, Pharmacy: [facility] #[id number] [External Rx] The patient (is) World Wide Qualified. AM Dispo: Non-Fly Cleared for AFSC/MOS Duties: Y es Cleared for continued service: Yes Cleared for mobility duties: Yes Cleared for participation in physical fitness program: Yes Maj Diego Osullivan, NELSON, PAChristianoC [facility] ([facility]) [place] GUPTA Please note that this dictation was completed with computer voice recognition software, Embuepeak. Quite often unanticipated grammatical, syntax, homophones, and other interpretive errors are inadvertently transcribed by the computer software. Please disregard these errors and excuse any errors that have escaped final proofreading. If are any questions regarding documentation, please contact this provider directly. Extracted from:Title: [facility] Anxiety Author: CESIA OSULLIVAN PA Date: [...] 0 total refill(s), Maintenance, 42 days, Pharmacy: [facility] #[id number] [External Rx] 2. E ssential hypertension Est [...] 90 tab(s), 3 total refill(s), Maintenance, Pharmacy: [facility] #[id number] [External Rx] Basic Metabolic Panel Microalbumin Panel, Urine The patient (is) World Wide Qualified. AM Dispo: Non-Fly Cleared for AFSC/MOS Duties: Y es Cleared for continued service: Yes Cleared for mobility duties: Yes Cleared for participation in physical fitness program: Yes Maj Diego Osullivan BSC, PA-C [facility] ([facility]) [place] Please note that this dictation was completed with computer voice recognition software, [employer]. Quite often unanticipated grammatical, syntax, homophones, and other interpretive errors are inadvertently transcribed by the computer software. Please disregard these errors and excuse any errors that have escaped final proofreading. If are any questions regarding documentation, please contact this provider directly. 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 I have reviewed the note and agree with the findings, assessment, and plan except as I have documented below. Follow up as listed. All labs/imaging/consults to be followed by the ordering provider. Corry Hussein DO, CHARLIE Carson, Staff Physician Extracted from:Title: [facility] - Virtual MHA/PHA Author: MC NEAL MD Date: 09/21/24 1. 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 IMR Status: R ED D ental Class 3 , s cheduled October 31. ? Arming Status: S ervice member does not arm Additional concerns: Sister food service cashier, routine annual PHA [id number] DRC3, UTD. [id number] HIV, UTD. Reviewed food service cashier's completed PHA record review and IMR status. MHA completed and copied to this record. 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 A dc recent medication changes and/or concerns will n eed to be addressed by PCM team. [facility] PHA completed and ASIMS updated. Any retention a nd/or readiness issues identified while conducting the PHA have been communicated to PCM via Mary Lou. field artillery crewmember to follow up with iain west PCM for all other c oncerns. //SIGNED// MC NEAL, Col, [employer], MC, FS Family Physician/Flight Surgeon [address] OMRS/SGXF [facility] [place]PT[place] (P) 2. A nxiety [...] -f/u with PCM and MH as needed NTAALEE [id number] Extracted from:Title: [facility] Back pain Author: BHARATHI HERNANDEZ PA [...] 30 tab(s), 0 total refill(s), Acute, Pharmacy: [facility] [Not filled] Referral Request 2.0 - [facility] 2. L ow back pain Pt reports [...] 30 tab(s), 0 total refill(s), Acute, Pharmacy: [facility] [Not filled] Referral Request 2.0 - [facility] Medications reconciled. Pt verbalized understanding and agreement. BHARATHI HERNANDEZ, 1st Lt, PA-C [facility] [place] [address] Extracted from:Title: [facility] - mass of R wrist Author: LORI ANTOINE MD Date: 07/26/24 1. M ass of wrist Chronic, 6 mths. P ain w/ certain activities. No red flags on exam. Suspect ganglion cyst most likely v lipoma. - US for further characterization - If cystic, will refer to [facility] proc clinic for tx - If lipomatous, will refer to hand surgeon - Advised against trauma to tx (hitting w/ a bible or heavy book) - F/u pending US results, will contact pt once results Ordered: US Superficial Extremity Lori Antoine MD, RENETTA, MPH PGY-3, [facility], [place], [place] Extracted from:Title: [facility] URI Author: JOE KATZ, DO Date: [...] return to work. Joe Katz DO, Capt, [facility], Family Physician [facility]/Pipe Threader [facility] Residency Program in [place] [address] [address] [address] Extracted from:Title: [facility] - Low back/hip pain Author: OSMAR [...] overdue items) Osmar Perez DO, Sergio, [employer], Operations Staff Specialist Security [address] [facility], [place] GUPTA Extracted from:Title: CHIRO [...] Px 1/> Areas Each 15 Minutes Massage [id number]; 11/22/2023 14:31:00 CDT, 10 b y ENRIKE VILLASENOR DC ? Therapeutic Px 1/> Areas Each 15 Min Exercises [id number]; 11/22/2023 14:31:00 CDT, 10 ? [facility] New Level 3; 11/22/2023 14:31:00 CDT, 25 ? Manual Therapy Tqs 1/> Regions Each 15 Minutes [id number]; 11/22/2023 14:31:00 CDT, 59 ? Chiropractic Manipulative Tx Spinal 1-2 Regions [id number]; 11/22/2023 14:31:00 CDT, AT D iagnosis: 2 . S acroiliac joint somatic dysfunction Comment: C hiropractic Diversified Adjustments Prone T/S S enrico posture to [place]lium, SI and L/S A T Ordered: [address] [place] [address] New Level 3; 11/22/2023 14:31:00 CDT, 25 b y ENRIKE VILLASENOR DC ? Chiropractic Manipulative Tx Spinal 1-2 Regions [id number]; 11/22/2023 14:31:00 CDT, AT D iagnosis: 3 . T horacic segmental dysfunction Comment: C hiropractic Diversified Adjustments Prone T/S S enrico posture to [place]lium, SI and L/S A T Ordered: [address] [place] [address] New Level 3; 11/22/2023 14:31:00 CDT, 25 b y ENRIKE VILLASENOR DC ? Chiropractic Manipulative Tx Spinal 1-2 Regions [id number]; 11/22/2023 14:31:00 CDT, AT D iagnosis: 4 . L umbar segmental dysfunction Comment: C hiropractic Diversified Adjustments Prone T/S S enrico posture to [place]lium, SI and L/S A T Ordered: [address] [place] [address] New Level 3; 11/22/2023 14:31:00 CDT, 25 b y ENRIKE VILLASENOR DC ? Chiropractic Manipulative Tx Spinal 1-2 Regions [id number]; 11/22/2023 14:31:00 CDT, AT Diagnosis of S [...] and all questions were answered. Ileana Ricardo [facility] Chiropractic E xtern, assisted [facility] patient care. //SIGNED// Dr. Enrike Villasenor DC, RMSK Chiropractic Physician 375 Operational Medical Readiness [facility] [place], [place] [facility] Line DSN/Comm: [phone] / [phone] 11/22/23 15:19:08 Extracted from:Title: Ambulatory Patient Education [...] to any changes in your nodule. Take dysk-ibw-aarntrp and prescription medicines only as told by [...] 07/09/2005 Document Revised: 04/03/2019 Document Reviewed: 04/03/2019 [employer] Interactive Patient Education 2019 [employer] Future Scheduled TestsLaboratoryMicroalbumin Panel, Urine 11/02/24Basic Metabolic Panel 11/02/24 01/03/2025 Unknown Organization Functional Status Combined list of recent functional and cognitive assessments recorded at [facility] [employer] [facility] (VA).VA Functional Leland Measurement (FIM) Scale: 1 = Total Assistance (Subject = 0% +), 2 = Maximal Assistance (Subject = 25% +), 3 = Moderate Assistance (Subject = 50% +), 4 = Minimal Assistance (Subject = 75% +), 5 = Supervision, 6 = Modified Leland (Device), 7 = Complete Leland (Timely, Safely). Assessment Date/Time Source Assessment Type Assessment Skill Assessment Score Assessment Details No data available for this section
[2025-01-03 16:47] LABS: Basophils Percent Auto 0.5 % (0.2-1.2); Eosinophils Absolute Auto 0.2 K/mm3 (0-0.3); Eosinophils Percent Auto 2.1 % (0-4.4); Hematocrit 45.5 % (42.0-52.0); Hemoglobin 16.6 g/dL (14.0-18.0); Immature Granulocyte Absolute 0.02 K/mm3 (0.00-0.031); Immature Granulocyte Percent A 0.2 % (0-0.5); Lymphocytes Absolute Auto 2.62 K/mm3 (0.9-3.2); Lymphocytes Percent Auto 31.9 % (18.3-44.2); Mean Corpuscular HGB Conc 36.5 g/dl (32-36); Mean Corpuscular Hemoglobin 33.8 pg (26-34); Mean Corpuscular Volume 92.7 fl (80-100); Mean Platelet Volume 9.3 fl (7.4-10.4); Monocytes Absolute Auto 0.6 K/mm3 (0.1-0.6); Monocytes Percent Auto 6.8 % (2.6-8.5); Neutrophils Absolute Auto 4.8 K/mm3 (1.3-6.7); Neutrophils Percent Auto 58.5 % (45.5-73.1); Platelet Count Result 213 k/mm3 (150-375); Red Blood Count 4.91 M/mm3 (4.6-6.20); Red Cell Distribution Width 12.4 % (11.5-14.5); White Blood Count 8.2 K/mm3 (4.5-10.0)
--- OUTSIDE RECORDS SUMMARY | 2025-01-03 16:47 | XMS_ITS | Clinical Summary ---
Author Organization [facility] Address [address] [place] [id number] Care Team Providers Care Machine Repairer Name Role Phone Non-Staff, Provider Primary Care [...] CDT - 12/25/2024 8:54 AM CDT Emergency [facility] Emergency Room [address] [place] [address] Rebekah Watters MD Back Pain Discharge Disposition: [...] to complete this topic Insurance Care Teams Machine Repairer Relationship Specialty Start Date End Date Non-Staff, Provider PCP - General UNKNOWN PHYSICIAN SPECIALTY 12/25/24
[2025-01-03 16:55] LABS: Alanine Aminotransferase 47 U/L (6-50); Albumin Level 5.1 g/dL (3.5-5.1); Alkaline Phosphatase 69 U/L (38-126); Anion Gap 12 mmol/L (4-12); Aspartate Amino Transferase 30 U/L (17-59); Bilirubin,Total 0.6 mg/dL (0.2-1.3); Blood Urea Nitrogen 19 mg/dL (9-20); Calcium 9.5 mg/dL (8.4-10.2); Carbon Dioxide 23 mmol/L (22-30); Chloride 103 mmol/L (98-107); Estimated CRCL calculation 117 ml/min; Estimated Glomerular Filt Rate > 60; Glucose 100 mg/dL (65-110); Lipase 156 U/L (23-300); Potassium 4.2 mmol/L (3.4-5.0); Sodium 138 mmol/L (137-145)
[2025-01-03 17:08] VITALS: BP 153/105; PULSE 69; RESP 16; TEMP 36.6; O2SAT 100
--- NOTE | 2025-01-03 17:27 | ED_ITS ---
HPI - Abdominal Pain General Chief Complaint: Abdominal Pain Stated Complaint: RLQ pain Time Seen by Provider: 01/03/25 16:22 History of Present Illness HPI narrative: 39-year-old otherwise healthy male presenting to the emergency department for right lower quadrant pain. Patient states he has been having pain progressively worse over last week or so. States he did have a stranding injury to his lumbar back several weeks ago and was treated with muscle relaxers and steroids but this feels like a totally different area. Patient denies any hernia, umbilical pain, fever, chills, urinary complaints or testicular swelling or testicular complaints. Was otherwise in his normal state of health, no history of abdominal surgeries in the past. Has not taken any symptom controlling pain medications at home. Related Data Allergies Allergy/AdvReac Type Severity Reaction Status Date / Time No Known Allergies Allergy Verified 01/03/25 15:19 Review of Systems 2 Review of Systems: As reviewed above in HPI Exam 2 Narrative: GENERAL: [Well-appearing, well-nourished, and in no acute distress.] HEAD: [Normocephalic, atraumatic.] EYES: [PERRLA and EOMI.] ENT: Nares clear, no rhinorrhea or epistaxis. Mucous membranes moist. NECK: Supple. CHEST: [Clear to auscultation. No respiratory distress.] HEART: [Regular rate and rhythm]. No murmur heard. [Normal peripheral pulses.] ABDOMEN: [Soft, nondistended], mild reproducible tenderness in the right lower quadrant without any hernias. No testicular masses are palpable deformity. No midline back pain, [No rigidity or guarding] EXTREMITIES: Normal range of motion. [No edema.] SKIN: Warm, dry, no rash. NEURO: [No focal deficits]. Alert and oriented [x3.] PSYCH: [Normal mood and affect.] Course Vital Signs Vital signs: Vital Signs Temperature 36.6 C 01/03/25 15:36 Pulse Rate 87 01/03/25 15:36 Respiratory Rate 16 01/03/25 15:36 Blood Pressure 164/110 H 01/03/25 15:36 Pulse Oximetry 99 01/03/25 15:36 Oxygen Delivery Room Air 01/03/25 15:36 Temperature 36.6 C 01/03/25 17:08 Pulse Rate 69 01/03/25 17:08 Respiratory Rate 16 01/03/25 17:08 Blood Pressure 153/105 H 01/03/25 17:08 Pulse Oximetry 100 01/03/25 17:08 Oxygen Delivery Room Air 01/03/25 15:36 MDM - Abdominal Pain MDM Narrative Medical decision making narrative: 39-year-old male with no significant past medical history presenting to the emergency department for right lower quadrant pain. Patient is worried about appendicitis. No history of fever, chills, urinary complaints, testicular swelling or testicular complaints. States he had a recent lumbar injury requiring steroids and muscle relaxers but this has been improving. His examination shows some mild tenderness in right lower quadrant but not particularly painful. No signs of peritonitis. No signs of fever tachycardia, hypoxia tachypnea. Overall well-appearing not any acute distress. Suspicion presently is for potential appendicitis versus muscle spasm versus hernia versus potential gastroenteritis. Workup was ordered including CBC, CMP, lipase, urinalysis and a CT scan with IV contrast. Patient was given a dose of [place] for analgesia and re-evaluated. Workup was reassuring. No signs of leukocytosis or anemia. Normal platelet count. Electrolytes are unremarkable. Normal renal function, normal glucose and LFTs. Normal lipase. Urinalysis without signs of infection. CT scan shows no evidence of appendicitis, diverticulitis or any other obstruction. There is some minor constipation noted. Patient felt comfortable after medications and can be safely discharged home at this time. Given tramadol for pain and MiraLax as needed for constipation. Return precautions provided and he will follow-up as needed. Medical Records Attestation: I reviewed the patient's medical records. Lab Data Attestation: I reviewed the patient's lab results. 01/03/25 16:34 01/03/25 16:33 Labs: Lab Results 01/03/25 01/03/25 Range/Units 16:33 16:34 WBC 8.2 (4.5-10.0) K/mm3 RBC 4.91 (4.6-6.20) M/mm3 Hgb 16.6 (14.0-18.0) g/dL Hct 45.5 (42.0-52.0) % MCV 92.7 (80-100) fl MCH 33.8 (26-34) pg MCHC 36.5 H (32-36) g/dl RDW 12.4 (11.5-14.5) % Plt Count 213 (150-375) k/mm3 MPV 9.3 (7.4-10.4) fl Immature Gran % (Auto) 0.2 (0-0.5) % Neut % (Auto) 58.5 (45.5-73.1) % Lymph % (Auto) 31.9 (18.3-44.2) % Morrill % (Auto) 6.8 (2.6-8.5) % Eos % (Auto) 2.1 (0-4.4) % Baso % (Auto) 0.5 (0.2-1.2) % Lymph # (Auto) 2.62 (0.9-3.2) K/mm3 Morrill # (Auto) 0.6 (0.1-0.6) K/mm3 Eos # (Auto) 0.2 (0-0.3) K/mm3 Baso # (Auto) 0.0 (0.0-0.1) K/mm3 Abs Immat Gran (auto) 0.02 (0.00-0.031) K/mm3 Absolute Neuts (auto) 4.8 (1.3-6.7) K/mm3 Absolute Nucleated RBC 0.000 (0.0-0.012) K/mm3 Nucleated RBC % 0.0 (0.0-0.2) % Sodium 138 (137-145) mmol/L Potassium 4.2 (3.4-5.0) mmol/L Chloride 103 (98-107) mmol/L Carbon Dioxide 23 (22-30) mmol/L Anion Gap 12 (4-12) mmol/L BUN 19 (9-20) mg/dL Creatinine 0.85 (0.7-1.3) mg/dL Estim Creat Clear Calc 117 ml/min Estimated GFR > 60 (59 - ) Glucose 100 (65-110) mg/dL Calcium 9.5 (8.4-10.2) mg/dL Total Bilirubin 0.6 (0.2-1.3) mg/dL AST 30 (17-59) U/L ALT 47 (6-50) U/L Alkaline Phosphatase 69 (38-126) U/L Total Protein 8.0 (6.3-8.2) g/dL Albumin 5.1 (3.5-5.1) g/dL Lipase 156 (23-300) U/L Urine Color Yellow (Yellow) Urine Appearance Clear (Clear) Urine pH 5.5 (5.0-9.0) Ur Specific [place] 1.024 (1.001-1.035) Urine Protein Negative (Negative) mg/dL Urine Glucose (UA) Negative (Negative) mg/dL Urine Ketones Negative (Negative) mg/dL Ur Blood (Man) Negative (Negative) Urine Nitrate Negative (Negative) Urine Bilirubin Negative (Negative) Urine Urobilinogen 1.0 (<2.0) mg/dL Leukocyte Esterase Rfl Negative (Negative) SHIMA/UL Imaging Data Attestation: I personally reviewed and interpreted this imaging study as follows: My impression: Impressions Abdomen/Pelvis CT 01/03/25 17:35 IMPRESSION: 1. No evidence of appendicitis, diverticulitis or intestinal obstruction. 2. Constipation. Radiologist's impression: ITS Impressions Abdomen/Pelvis CT 01/03/25 17:35 IMPRESSION: 1. No evidence of appendicitis, diverticulitis or intestinal obstruction. 2. Constipation. Discharge Plan Discharge Clinical Impression: Abdominal pain, right lower quadrant, Constipation, Musculoskeletal strain Patient Disposition: Home Condition: Stable Instructions: Antibiotic Form, Abdominal Pain (ED) Additional Instructions: your CT scan shows no signs of appendicitis, diverticulitis or any obstruction. No signs of hernia. Your laboratory studies are all normal which do not show any signs of kidney or liver injury, normal urine. No signs of inflammation. your CT scan does show some minor constipation but not significant and your symptoms are more likely consistent with a musculoskeletal strain related to your recent lumbar injury. We will send you home with some pain medications and MiraLax as needed for symptoms. Follow-up with regular doctor. Return with any concerns. Patient Language: Bengali Prescriptions: New tramadol 50 mg tablet 25 mg PO Q6H PRN (Reason: pain) Qty: 10 0RF polyethylene glycol 3350 [Miralax] 17 gram/dose powder 17 g PO BID Qty: 119 0RF Follow-up/Referrals: UNKNOWN,DOCTOR [Primary Care Provider] - Time of Disposition: 18:31
[2025-01-03 18:36] VITALS: BP 150/78; PULSE 68; RESP 18; TEMP 36.6; O2SAT 98
== END 2025-01-03 18:51 | disposition home or self-care (01) ==
PROVIDERS: Emergency Provider Student in an Organized Health Care Education/Training Program
DX: R10.31 Right lower quadrant pain (principal); S39.012D Strain of muscle, fascia and tendon of lower back, subsequent encounter; X58.XXXD Exposure to other specified factors, subsequent encounter; K59.00 Constipation, unspecified
CPT/HCPCS: 36415; 74177; 80053; 81003; 83690; 85025; 99284; Q9967